=== PATIENT | female | born 1940 | race Caucasian/White ===

== ENCOUNTER → 2020-12-07 12:19 | Outpatient (BNVA) | payer MEDICARE, OTHER, SELFPAY | PROVIDERS: Family Provider Family Medicine; Referring Provider Internal Medicine; Visit Provider Specialist | DX: G20 Parkinson's disease (principal) | CPT/HCPCS: 99204; 99205 ==

== ENCOUNTER → 2021-01-05 13:40 | Outpatient (BNVA) | payer MEDICARE, OTHER, SELFPAY | PROVIDERS: Family Provider Family Medicine; Visit Provider Specialist | DX: G20 Parkinson's disease (principal) | CPT/HCPCS: 99214 ==

== ENCOUNTER 2021-08-26 09:08 | Outpatient (CLI) | payer MEDICARE, OTHER, SELFPAY ==
--- NOTE | 2021-08-26 09:30 | MR_ITS ---
WS: [id number] MRI BRAIN WITHOUT CONTRAST HISTORY: G20 - Parkinson's disease COMPARISON: None available. TECHNIQUE: Diffusion imaging, multiplanar T1, T2 and FLAIR imaging obtained. No evidence for acute infarct or hemorrhage. Larose-white matter differentiation is normal. Mild atrophy and mild small vessel ischemic disease. The amount of ischemic disease is appropriate fo r the patient's age. Although there is a normal width of the pars compacta. Mild depigmentation withi n the substantia nigra which can be seen with Parkinson's disease. Very mild ventriculomegaly as expected for the patient's age and amount of atrophy. No inferior displacement of cerebellar tonsils. The sella turcica and pituitary gland are unremarkabl e. Dural venous sinuses and [place] demonstrate no abnormality on this unenhanced studies. Paranasal sinuses: There is extensive abnormal signal throughout the sinuses. Most significant abnorm al signal in the ethmoid, maxillary and sphenoid sinuses. Consistent with advanced mucosal epithelial thickening. There is mild expansion of the posterior RIGHT ethmoid sinus. Mastoid air cells: Normal. Calvarium and scalp: Intact. MR/MR head wo con* [id number] IMPRESSION: 1. Mild atrophy and mild small vessel ischemic disease. 2. Very slight depigmentation of the substantia nigra can be seen with Alexander on's disease. Normal width of the pars compacta. 3. Extensive sinus disease with heterogeneous signal throughout. Mild expansio n of the RIGHT ethmoid cavity. Due to the mild expansion consider a mucocele as a possible etiology. Chronic sinus disease and allergic fungal sinusitis shoul d be considered.
== END 2021-08-26 09:09 | disposition home or self-care (01) ==
LOC: RAD 09:09
PROVIDERS: Visit Provider Specialist
DX: G20 Parkinson's disease (principal)
CPT/HCPCS: 70551

== ENCOUNTER 2021-10-26 09:38 | Outpatient (CLI) | payer MEDICARE, OTHER, SELFPAY ==
--- NOTE | 2021-10-26 09:44 | CT_ITS ---
WS: [id number] CT FACIAL BONES TECHNIQUE: Noncontrast facial bones with coronal and sagittal reformatted images. CLINICAL INFORMATION: CHRONIC SINUSITIS/DYSPHONIA COMPARISON: None. DLP: 578.[address] scans at [facility] use at least one of these dose optimization techniques: automated e xposure control; mA and/or kV adjustment per patient size (includes targeted exams where dose is matc hed to clinical indication); or iterative reconstruction. FINDINGS:Expansile lesion involving the RIGHT posterior ethmoid air cell extending into the RIGHT max illary infundibulum with peripheral margin of expanded bone. Involvement of the periorbital posterior ethmoid air cells with thinning of the lamina papyracea. This measures approximately 2.9 x 1.8 x 2.5 cm most compatible with mucocele. Mastoid air cells well aerated. Normal posterior nasopharynx. Normal parapharyngeal fat. Intracranial vascular calcification. Evidence of chronic sinusitis with chronic bony osteitis involving the LEFT maxillary sinus and sphenoid sinuses. Chronic appearing associated secretions involving the sphenoid sinuses and LEFT maxillary sinus with inspissated secretions. Opacification of the sphenoid ostia RIG HT greater than LEFT. Frontal sinuses are well aerated. Bilateral brynn bullosa. Opacification of the ostiomeatal units bilaterally RIGHT greater than LEFT. CT/CT facial bones wo con* [id number] IMPRESSION: 1. Expansile lesion involving the RIGHT posterior ethmoid air cell with periph eral rim of expanded bone extending into the maxillary infundibulum compatible with mucocele described above. 2. Inspissated secretions in the maxillary sinuses bilaterally and sphenoid si nuses. 3. Evidence of chronic osteitis involving the LEFT maxillary sinus and sphenoi d sinuses compatible with chronic sinusitis. 4. Mastoid air cells well aerated 5. Normal posterior nasopharynx. 6. Minimal nasal septal deviation with a leftward directed spur.
== END 2021-10-26 09:39 | disposition home or self-care (01) ==
LOC: RAD 09:39
PROVIDERS: PCP Internal Medicine; Visit Provider Specialist
DX: J32.8 Other chronic sinusitis (principal); R49.0 Dysphonia
CPT/HCPCS: 70486

== ENCOUNTER → 2021-11-09 10:34 | Outpatient (BNVA) | payer MEDICARE, OTHER, SELFPAY | PROVIDERS: PCP Internal Medicine; Visit Provider Specialist | DX: G20 Parkinson's disease (principal); R26.89 Other abnormalities of gait and mobility; R93.0 Abnormal findings on diagnostic imaging of skull and head, not elsewhere classified; H55.89 Other irregular eye movements; R48.2 Apraxia | CPT/HCPCS: 99215 ==

== ENCOUNTER 2021-12-07 11:48 | Outpatient (CLI) | payer MEDICARE, OTHER, SELFPAY ==
--- NOTE | 2021-12-07 11:45 | MR_ITS ---
WS: [id number] MRA ANGIOGRAPHY [place] OF [place] HISTORY: G20 - Parkinson's disease COMPARISON: None available. TECHNIQUE: 3-D MR angiography is performed of the [place]. All images are reviewed including source images. Dominant distal LEFT vertebral artery. Small caliber distal RIGHT vertebral artery. Basilar artery is normal caliber. Posterior cerebral arteries are normal caliber bilaterally. Mild stenosis involving the LEFT ICA of just less than 50%. This narrowing is along the proximal eldon ous segment. RIGHT ICA through the skull base is normal caliber. Normal caliber through the cavernous sinuses. Middle and anterior cerebral arteries are patent. No paucity of vessel or aneurysm. MR/MR angio head wo con [id number] IMPRESSION: 1. Very mild narrowing proximal LEFT carotid artery through the petrous segmen t. 2. Otherwise no significant narrowing or atherosclerosis. No aneurysms. 3. Dominant LEFT vertebral artery.
== END 2021-12-07 11:49 | disposition home or self-care (01) ==
LOC: RAD 11:49
PROVIDERS: PCP Internal Medicine; Visit Provider Specialist
DX: G20 Parkinson's disease (principal); I65.22 Occlusion and stenosis of left carotid artery
CPT/HCPCS: 70544

== ENCOUNTER → 2022-01-03 10:48 | Outpatient (BNVA) | payer MEDICARE, OTHER, SELFPAY | PROVIDERS: PCP Internal Medicine; Visit Provider Podiatrist Foot & Ankle Surgery | DX: M25.472 Effusion, left ankle (principal); M25.471 Effusion, right ankle; E11.9 Type 2 diabetes mellitus without complications; M19.071 Primary osteoarthritis, right ankle and foot; M19.072 Primary osteoarthritis, left ankle and foot | CPT/HCPCS: 99204 ==

== ENCOUNTER 2022-02-14 08:47 | Outpatient (CLI) | payer MEDICARE, OTHER, SELFPAY ==
--- NOTE | 2022-02-14 08:58 | CT_ITS ---
WS: [id number] CT SINUSES TECHNIQUE: Noncontrast CT of the paranasal sinuses with coronal and sagittal reformatted images. CLINICAL INFORMATION: OTHER CHRONIC SINUSITIS/DISORDERS OF NOSE NASAL SINUSES COMPARISON: None. DLP: 349.[address] scans at [facility] use at least one of these dose optimization techniques: automated e xposure control; mA and/or kV adjustment per patient size (includes targeted exams where dose is matc hed to clinical indication); or iterative reconstruction. FINDINGS: Again seen is the expansile lesion involving the RIGHT posterior ethmoid air cell extending into the RIGHT maxillary infundibulum with peripheral margin of expanded bone. This is unchanged from previous . Involvement of the periorbital posterior ethmoid air cells with thinning of the lamina papyracea is stable. Today this again measures approximately 2.9 x 1.8 x 2.5 cm most compatible with mucocele. Inspissated secretions involving the sphenoid sinuses and LEFT maxillary sinus unchanged from previou s. Opacification of the sphenoid ostia RIGHT greater than LEFT. Frontal sinuses are well aerated. Domingo ateral brynn bullosa. Mastoid air cells well aerated. Normal posterior nasopharynx. Normal parapharyngeal fat. Intracranial vascular calcification. Evidence of chronic sinusitis with chronic bony osteitis involving the LEFT maxillary sinus and sphenoid sinuses. CT/CT sinus wo con* [id number] IMPRESSION: Overall no significant changes compared to previous. 1. Stable expansile lesion involving the RIGHT posterior ethmoid air cell with peripheral rim of expanded bone extending into the maxillary infundibulum ludwin tible with mucocele described above. 2. Stable inspissated secretions in the maxillary sinuses bilaterally and sphen oid sinuses. 3. Chronic osteitis involving the LEFT maxillary sinus and sphenoid sinuses com patible with chronic sinusitis. 4. Minimal nasal septal deviation with a leftward directed spur.
== END 2022-02-14 08:48 | disposition home or self-care (01) ==
PROVIDERS: PCP Internal Medicine; Visit Provider Specialist
DX: J32.8 Other chronic sinusitis (principal); J34.89 Other specified disorders of nose and nasal sinuses; R09.81 Nasal congestion; J34.2 Deviated nasal septum; M86.68 Other chronic osteomyelitis, other site
CPT/HCPCS: 70486

== ENCOUNTER → 2022-03-01 12:28 | Outpatient (BNVA) | payer MEDICARE, OTHER, SELFPAY | PROVIDERS: PCP Internal Medicine; Visit Provider Specialist | DX: G20 Parkinson's disease (principal) | CPT/HCPCS: G0463 ==

== ENCOUNTER → 2022-04-04 10:35 | Outpatient (BNVA) | payer MEDICARE, OTHER, SELFPAY | PROVIDERS: PCP Internal Medicine; Visit Provider Podiatrist Foot & Ankle Surgery | DX: E11.9 Type 2 diabetes mellitus without complications (principal); M25.472 Effusion, left ankle; M25.471 Effusion, right ankle; M19.079 Primary osteoarthritis, unspecified ankle and foot | CPT/HCPCS: 99213 ==

== ENCOUNTER 2022-05-05 12:50 | Outpatient (CLI) | payer MEDICARE, OTHER, SELFPAY ==
--- NOTE | 2022-05-05 13:00 | MR_ITS ---
WS: [id number] MRI BRAIN WITHOUT CONTRAST HISTORY: G20 - Parkinson's disease COMPARISON: 08/26/2021, TECHNIQUE: Diffusion imaging, multiplanar T1, T2 and FLAIR imaging obtained. Diffusion-weighted imaging is normal. No hemorrhage. Mild small vessel ischemic changes confluently s urrounding the lateral ventricles. Very similar in appearance to the prior study. No significant prog ression and no interval infarct. No remote or acute infarcts are volume loss. Ventricles and extra-axial spaces are mildly prominent on the basis of atrophy. Substantia nigra is m ore difficult to visualize today due to motion artifact. There is been no obvious interval change. No inferior displacement of cerebellar tonsils. The sella turcica and pituitary gland are unremarkabl e. Dural venous sinuses and [place] of [place] demonstrate no abnormality on this unenhanced studies. Paranasal sinuses: Again noted is abnormal soft tissue centered in the posterior RIGHT ethmoid air ce lls with bony expansion into the maxillary sinus. Thought to be related to a mucocele. This has been previously described and imaged by sinus CT. Extension of mucoperiosteal thickening into the posterio r ethmoid air cells and the sphenoid sinuses. Additional mucoperiosteal thickening in the LEFT maxill marifer sinus. Mastoid air cells: Normal. Calvarium and scalp: Intact. MR/MR head wo con* [id number] IMPRESSION: 1. No acute infarct, hemorrhage or edema. 2. Mild atrophy and small vessel ischemic disease similar to the prior study. The substantia nigra related to Parkinson's disease is poorly visualized on terry bird's study due to motion. No interval obvious change. 3. Again noted is expansion of the RIGHT posterior ethmoid air cells consisten t with the previously described mucocele. Please refer to sinus CT report of 02/14/2022.
== END 2022-05-05 12:51 | disposition home or self-care (01) ==
LOC: RAD 12:55
PROVIDERS: PCP Internal Medicine; Visit Provider Specialist
DX: G20 Parkinson's disease (principal); G31.9 Degenerative disease of nervous system, unspecified; I67.82 Cerebral ischemia
CPT/HCPCS: 70551

== ENCOUNTER → 2022-06-02 14:32 | Outpatient (BNVA) | payer MEDICARE, OTHER, SELFPAY | PROVIDERS: PCP Internal Medicine; Visit Provider Specialist | DX: G23.1 Progressive supranuclear ophthalmoplegia [Steele-Richardson-Olszewski]; G20 Parkinson's disease | CPT/HCPCS: 99214 ==

== ENCOUNTER 2022-06-12 10:38 | Inpatient (IN) | payer MEDICARE, OTHER, SELFPAY ==
[2022-06-12] VITALS (14 sets, daily range): BP systolic 113–156; BP diastolic 51–78; PULSE 74–96; RESP 17–20; TEMP 36.9–37.1; O2SAT 90–95
--- NOTE | 2022-06-12 10:56 | XRR_ITS ---
PROCEDURE INFORMATION: Exam: XR Chest Exam date and time: 06/12/2022 11:03 AM Age: 81 years old Clinical indication: Cough and hyperventilation; Additional info: Hypoxia, cough, TECHNIQUE: Imaging protocol: Radiologic exam of the chest. Views: 1 view. COMPARISON: No relevant prior studies available. FINDINGS: Lungs: There is no consolidation. There are scattered nodules in the lower left lung and a single nodule in the lower right lung. Pleural spaces: There is no pleural effusion or pneumothorax. Heart/Mediastinum: The hua are prominent bilaterally. Bones/joints: Bones are unremarkable. XR/XR chest 1V portable [id number] IMPRESSION: 1. Prominent bilateral hua. Possible mediastinal lymphadenopathy. Recommend nonemergent chest CT without and with IV contrast. 2. Bilateral lower lung nodules. Nonspecific. Possible calcified granulomas or metastases. Recommend nonemergent chest CT without and with IV contrast.
--- NOTE | 2022-06-12 11:01 | ED_ITS ---
HPI - SOB/Dyspnea General: Chief Complaint: Shortness of Breath/Dyspnea Stated Complaint: LOW O2 SATS Time Seen by Provider: 06/12/22 10:46 History of Present Illness: HPI Narrative: Patient presents to the ER by EMS with complaints of shortness of breath. Ellen araya started having low oxygen saturation and a dry cough for the last week. Has been taking albuterol every 4 hours since . Patient's usually not on oxygen but is now requiring 4 L per nasal cannula. Patient does have a history of an old stroke with some right-sided deficits. MD elicited complaint: shortness of breath Onset (ago): week(s) (1 week ago) Timing: constant and progressively worsening Severity: moderate Exacerbating factors: exertion Relieving factors: nothing Associated symptoms: Reports cough; Deny abdominal pain, chest pain, fever(s), nausea, palpitations or vomiting Treatment prior to arrival: bronchodilator Review of Systems General: Reports: 10 or more systems reviewed and unremarkable except in HPI and below Const: Denies: fever(s), chills or body aches Eyes: Denies: change in vision or photophobia ENMT: Denies: throat pain or odynophagia Card: Denies: chest pain, palpitations or irregular heart rhythm Resp: Reports: dyspnea GI: Denies: abdominal pain, nausea, vomiting or diarrhea PFSH ED PFSH: Social History Smoking and tobacco status: never smoked Alcohol intake: never Substance/Drug Use: never Physical Exam Const: COMMON NORMALS: no acute distress, average body habitus, healthy appearing, alert and well nourished HENMT: COMMON NORMALS: normocephalic, atraumatic, hearing grossly normal bilaterally, external ears normal, Normal external nose present and moist oral mucous membranes HEAD & SCALP: normocephalic and atraumatic NOSE: Normal external nose present EXTERNAL EAR: Yes external ears normal Eye: COMMON NORMALS: Equal, round and reactive pupils present, EOMs intact bilaterally, conjunctivae normal and no scleral icterus CONJUNCTIVA: Yes conjunctivae normal PUPIL: Yes Equal, round and reactive pupils present Neck/C-Spine: COMMON NORMALS: full ROM, no lymphadenopathy, supple, no meningeal signs, no JVD and Thyroid normal THYROID: Thyroid normal Lymph: LYMPHATIC: no lymphadenopathy noted Chest: COMMONS NORMALS: normal inspection of the chest and normal palpation of entire chest wall Resp: EFFORT & INSPECTION: Yes symmetric chest movement AUSCULTATION: rhonchi and wheezes Cardio: COMMON NORMALS: no JVD, regular rate, regular rhythm, S1 normal heart sound present and S2 normal heart sound present RATE: regular rate RHYTHM: regular rhythm HEART SOUNDS: S1 normal heart sound present and S2 normal heart sound present GI: COMMON NORMALS: Normal to inspection, nondistended, normoactive bowel sounds present, Soft to palpation, non-tender, No hepatosplenomegaly present and no masses PALPATION: Yes Soft to palpation and Yes No hepatosplenomegaly present : COMMON NORMALS: Yes no CVA tenderness BLADDER/KIDNEY EXAM: Yes no CVA tenderness Back/Pelvis: COMMON NORMALS: no CVA tenderness Extremity: COMMON NORMALS: normal to inspection Neuro: SENSORIUM/ORIENTATION: Yes alert MENINGEAL SIGNS: Yes no meningeal signs Course Vital Signs: Vital signs: Vital Signs Temperature 98.8 F 06/12/22 10:40 Pulse Rate 83 06/12/22 11:44 Respiratory Rate 20 H 06/12/22 10:40 Blood Pressure 132/75 06/12/22 11:19 Pulse Oximetry 95 06/12/22 11:44 Oxygen Delivery Me thod Nasal Cannula 06/12/22 11:44 Oxygen Flow Rate 4 06/12/22 10:40 MDM - SOB/Dyspnea Medical Decision Making Patient presents to the ER by EMS with complaints of hypoxia for the last 24 hours. Patient had needed to be put on 4 L of oxygen per nasal cannula to keep her saturations above 95%. Lab work was obtained that showed patient has a human metapneumovirus positive no swab, chest x-ray was negative for infiltrate. Dr. Barnett was consulted we will be getting a D-dimer as well as a CT of the chest without contrast and giving the patient 10 mg Decadron IV. Patient will be admitted to [facility] [place] for further work-up. Differential Diagnosis Likely acute exacerbation of chronic obstructive airways disease, congestive heart failure and community acquired pneumonia; Unlikely asthma with exace rbation or pulmonary embolism Medical Records I reviewed the patient's medical records. Lab Data I reviewed the patient's lab results. 06/12/22 10:40 06/12/22 10:40 Labs/Radiology: Radiology Impressions Chest X-Ray 06/12/22 10:56 IMPRESSION: 1. Prominent bilateral hua. Possible mediastinal lymphadenopathy. Recommend nonemergent chest CT without and with IV contrast. 2. Bilateral lower lung nodules. Nonspecific. Possible calcified granulomas or metastases. Recommend nonemergent chest CT without and with IV contrast. Laboratory Results WBC 5.1 10^3/uL (4.0-10.0) 06/12/22 10:40 RBC 4.38 10^6/uL (4.1-5.3) 06/12/22 10:40 Hgb 11.7 g/dL (11.5-15.3) 06/12/22 10:40 Hct 39.2 % (37.0-47.0) 06/12/22 10:40 MCV 89.5 fl (81-99) 06/12/22 10:40 MCH 26.7 pg (28.0-34.0) L 06/12/22 10:40 MCHC 29.8 g/dL (30.0-36.0) L 06/12/22 10:40 RDW 13.5 % (12.1-15.1) 06/12/22 10:40 Plt Count 169 10^3/cmm (130-400) 06/12/22 10:40 MPV 11.0 fL (7.4-10.4) H 06/12/22 10:40 Neut % (Auto) 49.7 % 06/12/22 10:40 Lymph % (Auto) 28.3 % 06/12/22 10:40 [place] % (Auto) 14.4 % 06/12/22 10:40 Eos % (Auto) 5.8 % 06/12/22 10:40 Baso % (Auto) 1.2 % 06/12/22 10:40 Neut # (Auto) 2.55 10^3/uL (1.8-7.7) 06/12/22 10:40 Lymph # (Auto) 1.5 10^3/uL (0.8-4.8) 06/12/22 10:40 [place] # (Auto) 0.7 10^3/uL (0.2-0.9) 06/12/22 10:40 Eos # (Auto) 0.3 10^3/uL (0.0-0.8) 06/12/22 10:40 Baso # (Auto) 0.1 10^3/uL (0.0-0.1) 06/12/22 10:40 Nucleated RBC % (auto) 0 % 06/12/22 10:40 Nucleated RBCs # 0.0 /100WBC 06/12/22 10:40 Sodium 136 mmol/L (136-145) 06/12/22 10:40 Potassium 4.7 mmol/L (3.5-5.1) 06/12/22 10:40 Chloride 100 mmol/L (98-107) 06/12/22 10:40 Carbon Dioxide 27 mmol/L (22-29) 06/12/22 10:40 Anion Gap 13.7 (5-19) 06/12/22 10:40 BUN 19 mg/dL (8-23) 06/12/22 10:40 Creatinine 1.3 mg/dL (0.5-0.9) H 06/12/22 10:40 GFR Calculation Not Reportable 06/12/22 10:40 Glucose 264 mg/dL (65-115) H 06/12/22 10:40 Calculated Osmolality 293 mOsm/kg (285-295) 06/12/22 10:40 Calcium 9.2 mg/dL (8.5-10.5) 06/12/22 10:40 Total Bilirubin 0.2 mg/dL (0.15-1.2) 06/12/22 10:40 AST 14 U/L (0-32) 06/12/22 10:40 ALT < 5 U/L (0-33) 06/12/22 10:40 Alkaline Phosphatase 86 U/L (35-105) 06/12/22 10:40 Total Protein 6.9 g/dL (6.6-8.7) 06/12/22 10:40 Albumin 3.3 g/dL (3.5-5.2) L 06/12/22 10:40 Globulin 3.6 g/dL (1.3-4.6) 06/12/22 10:40 Nasal Influ A H1 2008 PCR Not detected (NOT DETECT) 06/12/22 11:25 Adenovirus (PCR) Not detected (NOT DETECT) 06/12/22 11:25 C. pneumoniae DNA (PCR) Not detected (NOT DETECT) 06/12/22 11:25 Coronavirus 229E (PCR) Not detected (NOT DETECT) 06/12/22 11:25 Human Metapneumovir PCR Detected (NOT DETECT) A 06/12/22 11:25 Influenza A (H1) PCR Not detected (NOT DETECT) 06/12/22 11:25 Influenza A (H3) PCR Not detected (NOT DETECT) 06/12/22 11:25 Influenza Type A (PCR) Not detected (NOT DETECT) 06/12/22 11:25 Influenza Type B (PCR) Not detected (NOT DETECT) 06/12/22 11:25 M. pneumoniae (PCR) Not detected (NOT DETECT) 06/12/22 11:25 Parainfluenza 1 (PCR) Not detected (NOT DETECT) 06/12/22 11:25 Parainfluenza 2 (PCR) Not detected (NOT DETECT) 06/12/22 11:25 Parainfluenza 3 (PCR) Not detected (NOT DETECT) 06/12/22 11:25 Parainfluenza 4 (PCR) Not detected (NOT DETECT) 06/12/22 11:25 RSV Type A (PCR) Not detected (NOT DETECT) 06/12/22 11:25 RSV Type B (PCR) Not detected (NOT DETECT) 06/12/22 11:25 Entero/Rhino (PCR) Not detected (NOT DETECT) 06/12/22 11:25 SARS-CoV-2 (PCR) Not detected (NOT DETECT) 06/12/22 11:25 Discharge Plan Discharge Patient Disposition: Admitted As Inpatient Clinical Impression: Infection due to human metapneumovirus (hMPV), Hypoxia Condition: Stable Prescriptions: No Action carbidopa-levodopa 25-100 mg tablet extended release See Rx Instructions PO BID Qty: 90 2RF Rx Instructions: 1/2 tab in the AM and at noon orally twice a day; glucosamine-chondroitin 500-400 mg tablet 1 tab PO DAILY Systane Balance 0.6 % drops 1 drp ophthalmic (eye) DAILY PRN calcium carbonate [Tums] 200 mg calcium (500 mg) tablet,chewable 200 mg PO BID guaifenesin [Mucinex] 600 mg tablet extended release 12hr 600 mg PO BID acetaminophen [Tylenol] 325 mg capsule 325 mg PO QID PRN Culturelle 10 billion cell capsule 1 cap PO DAILY fluticasone propionate [Flonase Allergy Relief] 50 mcg/actuation spray,suspension 1 spray intranasal DAILY Rx Instructions: administer into each nostril Prolia 60 mg/mL syringe SUBCUT cetirizine 5 mg tablet 5 mg PO DAILY PRN Referrals: Wesly Santiago DO [Primary Care Provider] - Coding Level of Care Code ED [facility] for Marilia Booker
[2022-06-12 11:08] LABS: Basophils # 0.1 10^3/uL (0.0-0.1); Basophils % 1.2 %; Eosinophils # 0.3 10^3/uL (0.0-0.8); Eosinophils % 5.8 %; Hematocrit 39.2 % (37.0-47.0); Hemoglobin 11.7 g/dL (11.5-15.3); Lymphocytes # 1.5 10^3/uL (0.8-4.8); Lymphocytes % 28.3 %; Mean Corpuscular HGB Conc 29.8 g/dL (30.0-36.0); Mean Corpuscular Hemoglobin 26.7 pg (28.0-34.0); Mean Corpuscular Volume 89.5 fl (81-99); Monocytes # 0.7 10^3/uL (0.2-0.9); Monocytes % 14.4 %; Neutrophils # 2.55 10^3/uL (1.8-7.7); Neutrophils % 49.7 %; Nucleated Red Blood Cells % 0 %; Platelet Count 169 10^3/cmm (130-400); Red Blood Count 4.38 10^6/uL (4.1-5.3); Red Cell Distribution Width 13.5 % (12.1-15.1); White Blood Count 5.1 10^3/uL (4.0-10.0)
[2022-06-12 11:22] LABS: Alanine Aminotransferase < 5 U/L (0-33); Albumin Level 3.3 g/dL (3.5-5.2); Alkaline Phosphatase 86 U/L (35-105); Aspartate Amino Transferase 14 U/L (0-32); Blood Urea Nitrogen 19 mg/dL (8-23); Calcium 9.2 mg/dL (8.5-10.5); Carbon Dioxide 27 mmol/L (22-29); Chloride 100 mmol/L (98-107); Globulin 3.6 g/dL (1.3-4.6); Glucose 264 mg/dL (65-115); Osmolality Calculated 293 mOsm/kg (285-295); Sodium 136 mmol/L (136-145); Total Bilirubin 0.2 mg/dL (0.15-1.2); Total Protein 6.9 g/dL (6.6-8.7)
[2022-06-12 11:59] LABS: Anion Gap 13.7 (5-19); Potassium 4.7 mmol/L (3.5-5.1)
[2022-06-12 13:35] LABS: Adenovirus Not Detected (NOT DETECT); Chlamydia Pneumoniae Not Detected (NOT DETECT); Coronavirus 229E,HKU1,NL63,OC4 Not Detected (NOT DETECT); Human Metapneumovirus Detected (NOT DETECT); Human Rhinovirus/Enterovirus Not Detected (NOT DETECT); Influenza A Not Detected (NOT DETECT); Influenza A H1 Not Detected (NOT DETECT); Influenza A H1-2009 Not Detected (NOT DETECT); Influenza A H3 Not Detected (NOT DETECT); Influenza B Not Detected (NOT DETECT); Mycoplasma Pneumoniae Not Detected (NOT DETECT); Parainfluenza Virus Type 1 Not Detected (NOT DETECT); Parainfluenza Virus Type 2 Not Detected (NOT DETECT); Parainfluenza Virus Type 3 Not Detected (NOT DETECT); Parainfluenza Virus Type 4 Not Detected (NOT DETECT); Respiratory Syncytial Virus A Not Detected (NOT DETECT); Respiratory Syncytial Virus B Not Detected (NOT DETECT); SARS-COV-2 Not Detected (NOT DETECT)
--- NOTE | 2022-06-12 15:04 | CTR_ITS ---
PROCEDURE INFORMATION: Exam: CT Chest Without Contrast; Diagnostic Exam date and time: 06/12/2022 3:15 PM Age: 81 years old Clinical indication: Hyperventilation and shortness of breath; Additional info: Hypoxia, dyspnea TECHNIQUE: Imaging protocol: Diagnostic computed tomography of the chest without contrast. Radiation optimization: All CT scans at this facility use at least one of these dose optimization techniques: automated exposure control; mA and/or kV adjustment per patient size (includes targeted exams where dose is matched to clinical indication); or iterative reconstruction. REPORTING DATA: Count of CT and Cardiac NM exams in prior 12 months: This patient has received 2 known CTs and 0 known cardiac nuclear medicine studies in the 12 months prior to the current study. COMPARISON: CR (CHEST, ) 06/12/2022 11:03 AM RADIATION DOSE METRICS: Total DLP (mGy-cm): 365.12 FINDINGS: Lungs: 6 mm benign calcified granuloma is seen anterior mid to lower right lung. Subtle ill-defined hazy ground-glass opacity within the mid to lower lungs on the lung windows. Mild basilar atelectasis with possible minimal right basilar infiltrate. No consolidated infiltrate. Pleural spaces: No pneumothorax or pleural effusion is seen. Heart: No significant cardiomegaly or pericardial effusion. Mild amount of mitral annular calcification. Lymph nodes: Nonspecific mediastinal lymph nodes, the largest measuring 1.3 cm in the retrocaval pretracheal mediastinum. No significant lymph node enlargement, otherwise. Vasculature: Arteriosclerosis of the thoracic aorta. Bones/joints: Slight thoracic dextroscoliosis. Spondylotic change thoracic spine. Soft tissues: Unremarkable. CT/CT chest con [id number] IMPRESSION: 1. Benign calcified granuloma anterior mid to lower right lung. 2. Mild basilar atelectasis with possible minimal right basilar infiltrate. Subtle ill-defined hazy ground-glass opacity mid and lower lungs, as well. Consider minimal pneumonia. 3. Limited evaluation of mediastinal and hilar region without IV contrast, with nonspecific lymph nodes within the mediastinum and without significant lymphadenopathy.
[2022-06-12 15:41] LABS: D Dimer 0.81 ug/mIFEU (0-0.59)
[2022-06-12] MEDS: ipratropium-albuterol 3 mL Neb INHALATION ×2 (15:44→19:53)
[2022-06-12] MEDS: dexamethasone 10 mg/mL INJ IVP (16:00)
--- NOTE | 2022-06-12 17:10 | P.HP_ITS ---
Providers/Chief Complaint Admitting Physician: Marcos Mcgowan MD Primary Care Provider: Wesly Santiago DO Chief Complaint: LOW O2 SATS History of Present Illness Barb Joiner is a 81 year old female, intermediate resident with past medical history of supranuclear progressive Palsy, type 2 diabetes mellitus, COPD who was brought in today from the intermediate because of difficulty in breathing and cough which has been ongoing and worsening since Monday. Today is Monday. Patient herself speaks very softly because of her baseline Parkinson's. She is seen in the ER with her son at bedside. Work-up in the ER showed patient to be positive for metapneumovirus. She is requiring up to 4 L of oxygen supplementation to maintain saturation over 88% hence hospital service was consulted for admission. At baseline patient is not on oxygen. Blood work in the ER showed a white count of 5.1, hemoglobin of 11.7, sodium 136, potassium of 4.7, creatinine of 1.3 (we do not have a baseline creatinine), AST/ALT of 14/less than 5, respiratory viral panel positive for human metapneumovirus Review of Systems General: Reports: ROS unobtainable due to medical condition Medications/Allergies Home Medications Medication Instructions Recorded Confirmed Last Taken Type calcium carbonate 200 mg calcium 200 mg PO Q6H PRN Stomach Upset 11/09/21 06/12/22 Unknown History (500 mg) chewable tablet (Tums) denosumab 60 mg/mL subcutaneous 60 mg SUBCUT Q180D 11/09/21 06/12/22 Unknown History syringe (Prolia) fluticasone propionate 50 2 spray intranasal DAILY PRN 11/09/21 06/12/22 Unknown History mcg/actuation nasal allergies spray,suspension (Flonase Allergy Relief) guaifenesin 600 mg tablet, 600 mg PO BID PRN Congestion 11/09/21 06/12/22 Unknown History extended release 12 hr (Mucinex) cetirizine 5 mg tablet 2.5 mg PO DAILY 03/01/22 06/12/22 Unknown History carbidopa ER 25 mg-levodopa 100 mg See Rx Instructions PO BID #90 tabs 06/02/22 06/12/22 Unknown Rx tablet,extended release acetaminophen 500 mg tablet 500 mg PO BID 06/12/22 06/12/22 Unknown History albuterol sulfate 2.5 mg/3 mL 2.5 mg inhalation TID PRN 06/12/22 06/12/22 Unknown History (0.083 %) solution for nebulization Shortness Of Breath aspirin 81 mg chewable tablet 81 mg PO DAILY 06/12/22 06/12/22 Unknown History bisacodyl 10 mg rectal suppository 10 mg ND DAILY PRN Constipation 06/12/22 Unknown History (Dulcolax (bisacodyl)) diclofenac sodium 1 % topical gel 2 g topical BEDTIME 06/12/22 06/12/22 Unknown History (Voltaren Arthritis Pain) famotidine 20 mg tablet (Pepcid) 20 mg PO DAILY 06/12/22 06/12/22 Unknown History insulin degludec 100 unit/mL 10 unit SUBCUT BEDTIME 06/12/22 06/12/22 Unknown History subcutaneous solution (Tresiba U-100 Insulin) menthol 5 mg lozenges (Cough Drops) 5 mg mucous membrane Q4H 06/12/22 06/12/22 Unknown History promethazine-DM 6.25 mg-15 mg/5 mL 5 ml PO Q8H PRN Cough 06/12/22 06/12/22 Unknown History oral syrup propylene glycol 0.6 % eye drops 1 drp ophthalmic (eye) BID 06/12/22 06/12/22 Unknown History (Systane Balance) red yeast rice 600 mg capsule 600 mg PO DAILY 06/12/22 06/12/22 Unknown History vitamins A,C,S-dqwq-nddtzi 2,148 1 tab PO DAILY 06/12/22 06/12/22 Unknown History mcg-113 mg-45 mg-17.4 mg tablet (PreserVision AREDS) Allergies Allergy/AdvReac Type Severity Reaction Status Date / Time adhesive tape Allergy Mild Rash Verified 06/02/22 14:47 Sulfa (Sulfonamide Allergy Mild Rash Verified 06/02/22 14:47 Antibiotics) gabapentin AdvReac floats on Verified 06/02/22 14:47 the ceiling hydrocodone AdvReac Floats on Verified 06/02/22 14:47 the ceiling Penicillins AdvReac Makes her Verified 06/02/22 14:47 sleep PFSH Acute PFSH: Medical History (Updated 06/12/22 @ 17:13 by Marcos Mcgowan MD) COPD (chronic obstructive pulmonary disease) Progressive supranuclear palsy Type 2 diabetes mellitus Family History (Updated 06/12/22 @ 20:01 by Marcos Mcgowan MD) Other CAD (coronary artery disease) Social History (Updated 06/12/22 @ 17:14 by Marcos Mcgowan MD) Smoking and tobacco status: never smoked Alcohol intake: never Substance/Drug Use: never Household members: other Housing: [facility] Vitals/I&O/Wt Last Vital Signs Temp 98.8 F 06/12/22 10:40 Pulse 89 06/12/22 16:32 Resp 20 H 06/12/22 15:42 BP 113/63 06/12/22 16:32 Pulse Ox 93 06/12/22 16:32 O2 Del Method Nasal Cannula 06/12/22 16:32 O2 Flow Rate 4 06/12/22 16:32 Weight last 48 hrs Weight 86.183 kg Physical Exam Narrative: General: No acute distress, AO x3, chronically sick appearing, able to have conversation but not able to speak, chronic dysphonia HEENT: PERRLA, pupils bilaterally equal and reactive Chest: Bilateral bronchial breath sounds all over all lung renee with occasional rhonchi all over lung renee, coarse crackles present in right lower zone CVS: S1-S2 regular, no murmurs, no tachycardia, no gallops, no rubs Abdomen: Soft, nontender, no organomegaly, bowel sounds present Neuro: No focal deficits, no facial deformity, AO x3, moving all limbs Data 06/12/22 10:40 06/12/22 10:40 A&P Assessment and plan (1) Hypoxia: (2) Infection due to human metapneumovirus (hMPV): (3) Type 2 diabetes mellitus: (4) Progressive supranuclear palsy: (5) COPD (chronic obstructive pulmonary disease): Plan Hypoxia: Most likely secondary COPD exacerbation in setting of metapneumovirus. Cannot rule out aspiration pneumonia given patient's baseline Parkinson's. Patient is on thickened liquid diet at intermediate. Speech therapy and evaluation, modified barium swallow. Empirically start patient on meropenem. Patient is allergic to penicillin. Check sputum culture, MRSA swab, procalcitonin. DuoNebs every 6 hour, budesonide twice daily. Start patient on dexamethasone 4 mg every 12 hourly. Solu-Medrol not available in hospital. Oxygen supplementation keeping saturation over 88%. Type 2 diabetes mellitus: Check A1c. Insulin sliding scale low-dose protocol. Continue home dose of Lantus 10 units nightly. CODE STATUS: Patient's son will be the DPOA. Paperwork present in the chart. DNR/DNI. Both patient and son are agreeable with the paperwork. Regular diet with thickened liquids for now. Will change as per speech therapy. Famotidine for PUD prophylaxis Heparin 5000 every 12 hourly for DVT prophylaxis. Attestations Medical Necessity Statement*: Admission for more than 2 midnights for management of hypoxia in setting of metapneumovirus leading to COPD exacerbation while aspiration pneumonia was ruled out in a patient who is a chronic intermediate resident for supranuclear palsy Diagnoses Hypoxia R09.02 Infection due to human metapneumovirus (hMPV) B34.8 Type 2 diabetes mellitus E11.9 Progressive supranuclear palsy G23.1 COPD (chronic obstructive pulmonary disease) J44.9
[2022-06-12 17:46] LABS: Thyroid Stimulating Hormone 2.44 uIU/mL (0.27-4.20); Vitamin B12 625 pg/mL (232-1245)
[2022-06-12 17:56] LABS: Iron 33 ug/dL (37-145); Percent Saturation 12.9 % (20-50); Total Iron Binding Capacity 254 mcg/dl; Unsaturated Iron Binding 221 ug/dL (112-347)
[2022-06-12] MEDS: carbidopa-levodopa 25-100mg Tablet 0.5 EACH PO (18:44)
[2022-06-12] MEDS: famotidine 20 mg Tablet PO (18:44)
[2022-06-12] MEDS: heparin 5,000 unit/mL INJ 1 mL 5000 UNIT SUBCUT (18:45)
[2022-06-12] MEDS: meropenem 1,000 MG in sodium chloride 0.9% (plus) 50 ML 100 MG IV (18:45)
[2022-06-12] MEDS: budesonide 0.5 mg/2 mL Neb INHALATION (19:53)
[2022-06-12 20:32] LABS: Glucose Point of Care 349 mg/dL (70-110)
[2022-06-12] MEDS: insulin glargine 100 units/1 mL 10 UNIT SUBCUT (21:21)
[2022-06-12] MEDS: insulin lispro 100 unit/1 mL SUBCUT (22:00)
[2022-06-13] VITALS (14 sets, daily range): BP systolic 114–135; BP diastolic 67–74; PULSE 70–101; RESP 16–20; TEMP 36.4–36.9; O2SAT 87–96; BMI 34.7
[2022-06-13] MEDS: meropenem 1,000 MG in sodium chloride 0.9% (plus) 50 ML 100 MG IV ×3 (01:04→20:43)
[2022-06-13] MEDS: benzonatate 100 mg Capsule PO (01:05)
[2022-06-13] MEDS: ipratropium-albuterol 3 mL Neb INHALATION ×4 (01:08→21:10)
[2022-06-13 05:16] LABS: Basophils % 0.2 %; Hematocrit 37.5 % (37.0-47.0); Hemoglobin 11.1 g/dL (11.5-15.3); Lymphocytes # 0.6 10^3/uL (0.8-4.8); Lymphocytes % 13.2 %; Mean Corpuscular HGB Conc 29.6 g/dL (30.0-36.0); Mean Corpuscular Hemoglobin 26.5 pg (28.0-34.0); Mean Corpuscular Volume 89.5 fl (81-99); Mean Platelet Volume 10.7 fL (7.4-10.4); Monocytes # 0.1 10^3/uL (0.2-0.9); Neutrophils # 3.86 10^3/uL (1.8-7.7); Neutrophils % 83.7 %; Nucleated Red Blood Cells % 0 %; Platelet Count 170 10^3/cmm (130-400); Red Blood Count 4.19 10^6/uL (4.1-5.3); Red Cell Distribution Width 13.2 % (12.1-15.1); White Blood Count 4.6 10^3/uL (4.0-10.0)
[2022-06-13 05:26] LABS: Estmated Average Glucose 217; Hemoglobin A1C 9.2 % (4.0-6.0)
[2022-06-13 05:29] LABS: Chol HDL Ratio 4.95 mg/dL (0.0-4.40); Cholesterol 193 mg/dL (0-200); HDL Cholesterol 39 mg/dL (60-100); LDL Cholesterol Calculated 122 mg/dL (50-129); LDL HDL Ratio 3.13 RATIO (0.00-3.22); Triglycerides 162 mg/dL (0-150)
[2022-06-13 05:30] LABS: Alanine Aminotransferase < 5 U/L (0-33); Albumin Level 3.2 g/dL (3.5-5.2); Alkaline Phosphatase 83 U/L (35-105); Anion Gap 15.5 (5-19); Aspartate Amino Transferase 12 U/L (0-32); Blood Urea Nitrogen 23 mg/dL (8-23); Carbon Dioxide 25 mmol/L (22-29); Chloride 99 mmol/L (98-107); Globulin 3.4 g/dL (1.3-4.6); Glucose 295 mg/dL (65-115); Osmolality Calculated 295 mOsm/kg (285-295); Phosphorus 2.5 mg/dL (2.5-4.5); Potassium 4.5 mmol/L (3.5-5.1); Sodium 135 mmol/L (136-145); Total Bilirubin 0.2 mg/dL (0.15-1.2); Total Protein 6.6 g/dL (6.6-8.7)
[2022-06-13 05:33] LABS: Creatinine Clr Calc Pharmacy 37.4576
[2022-06-13 06:02] LABS: Folate Level 6.2 ng/mL (4.8-37.3)
[2022-06-13] MEDS: dexamethasone 4 mg/mL INJ IVP ×2 (06:03→17:51)
[2022-06-13] MEDS: heparin 5,000 unit/mL INJ 1 mL 5000 UNIT SUBCUT ×2 (06:04→17:51)
[2022-06-13 06:28] LABS: Glucose Point of Care 315 mg/dL (70-110)
[2022-06-13] MEDS: budesonide 0.5 mg/2 mL Neb INHALATION ×2 (08:12→21:10)
[2022-06-13] MEDS: carbidopa-levodopa 25-100mg Tablet 0.5 EACH PO ×2 (08:53→17:51)
[2022-06-13] MEDS: aspirin 81 mg Chew Tablet PO (08:53)
[2022-06-13] MEDS: famotidine 20 mg Tablet PO ×2 (08:53→17:51)
[2022-06-13] MEDS: insulin lispro 100 unit/1 mL SUBCUT ×4 (08:53→22:28)
--- NOTE | 2022-06-13 10:37 | PC.CHAP ---
Pastoral Care Encounter/Spiritual Assessment Type of Contact [] Declined warp yarn sorter visit [] Patient/Family/Request visit [] Outpatient visit [] Follow-up visit [] Physician referral [] Code/Alert [x] Routine visit [] Staff referral [] Actively dying [] Patient sleeping [] Family support [] [] Out of room [] Palliative care [] [] Receiving care in room [] Pre-surgical visit [] Trauma [] Long length of stay [] ICU visit [] Other: Relational/Emotional Strength [] Patient feels connected with others/family/visitors/staff [] Distress [] Loneliness/isolation [] Abandonment Spirituality of Patient [] Person of Tory [] Attends Confucianist of their Tory [] Believes in Prayer [] Reads Bible or Latter-Day materials [] There are Spiritual issues to be addressed Boat Detailer Interventions [x] Prayer [] Active listening [] Non-anxious presence [] Spiritual/emotional support [] Crisis/trauma care [] Spiritual counseling [] Bereavement support [] Provided bereavement packet [] Provided Bible/devotional materials [] Provided toy/stuffed animal, coloring book to patient or family member [] Provided Communion [] Anointing/[place] [] Salvation [] Completed spiritual assessment [] Other: Impact on Illness or Injury [] Angry [] Fearful [] Anxious [] Often cries [] Exhaustion [] Unable to work [] Unable to attend mandaeism [] Unable to walk/stand [] Unable to read [] Unable to drive [] Unable to eat/drink [] Unable to sleep [] Unable to be with family [] Patient intubated [] Other: Summary Time spent with patient
[2022-06-13 11:52] LABS: Glucose Point of Care 265 mg/dL (70-110)
--- NOTE | 2022-06-13 14:55 | P.PN_ITS ---
Subjective Subjective: No acute events overnight. Comfortable. on 3L oxymask as breathes through the mouth. Plan for MBS today. Vitals/I&O/Wt Last Vital Signs Temp 98.5 F 06/13/22 12:00 Pulse 91 06/13/22 13:50 Resp 18 06/13/22 13:40 BP 114/74 06/13/22 12:00 Pulse Ox 94 06/13/22 13:40 O2 Del Method Oxymask 06/13/22 13:40 O2 Flow Rate 3 06/13/22 13:40 06/12/22 06/13/22 06/13/22 22:59 06:59 14:59 Intake Total 50 / 50 50 / 100 170 / 170 Balance 50 / 50 50 / 100 170 / 170 Weight last 48 hrs Weight 86.183 kg Weight 86.183 kg Physical Exam Narrative: General: No acute distress, AO x3, chronically sick appearing, able to have conversation but not able to speak, chronic dysphonia HEENT: PERRLA, pupils bilaterally equal and reactive Chest: Bilateral bronchial breath sounds all over all lung renee with occasional rhonchi all over lung renee, coarse crackles present in right lower zone CVS: S1-S2 regular, no murmurs, no tachycardia, no gallops, no rubs Abdomen: Soft, nontender, no organomegaly, bowel sounds present Neuro: No focal deficits, no facial deformity, AO x3, moving all limbs Data 06/13/22 04:40 06/13/22 04:40 Micro: Microbiology 06/12/22 03:59 Bacterial Antigens - Final Urine Kidney 06/12/22 03:59 Legionella Urinary Antigen - Final Unknown Source A&P Assessment and plan (1) Hypoxia: (2) Infection due to human metapneumovirus (hMPV): (3) Type 2 diabetes mellitus: (4) Progressive supranuclear palsy: (5) COPD (chronic obstructive pulmonary disease): Plan Hypoxia: Most likely secondary COPD exacerbation in setting of metapneumovirus. Cannot rule out aspiration pneumonia given patient's baseline Parkinson's. Patient is on thickened liquid diet at retirement. Speech therapy and evaluation, modified barium swallow. Empirically start patient on meropenem. Patient is allergic to penicillin. Check sputum culture, MRSA swab, procalcitonin. DuoNebs every 6 hour, budesonide twice daily. Start patient on dexamethasone 4 mg every 12 hourly. Solu-Medrol not available in hospital. Oxygen supplementation keeping saturation over 88%. Type 2 diabetes mellitus: Check A1c. Insulin sliding scale low-dose protocol. Continue home dose of Lantus 10 units nightly. CODE STATUS: Patient's son will be the DPOA. Paperwork present in the chart. DNR/DNI. Both patient and son are agreeable with the paperwork. Regular diet with thickened liquids for now. Will change as per speech therapy. Famotidine for PUD prophylaxis Heparin 5000 every 12 hourly for DVT prophylaxis. Plan for the day: Continue relation treatment, steroids. Wean oxygen keeping saturation over 88%. Follow-up MBS study and change diet accordingly if needed. Attestations Medical Necessity Statement*: Hypoxia due to COPD exacerbation from metapneumovirus infection Diagnoses Hypoxia R09.02 Infection due to human metapneumovirus (hMPV) B34.8 Type 2 diabetes mellitus E11.9 Progressive supranuclear palsy G23.1 COPD (chronic obstructive pulmonary disease) J44.9
[2022-06-13 16:42] LABS: Glucose Point of Care 234 mg/dL (70-110)
--- NOTE | 2022-06-13 17:57 | FL_ITS ---
WS: [id number] MODIFIED BARIUM SWALLOW HISTORY: Oropharyngeal dysphagia FLUOROSCOPY TIME: 1min [id number] # of spot films: 257 Modified barium swallow was performed by the speech pathologist. Fluoroscopy was provided with the pa tient in a lateral projection. Multiple food consistencies were provided. No aspiration or laryngeal penetration. There was delay in clearing of the barium from the esophagus. Patient was able to swallow most food consistencies without difficulty. Patient requested the study be terminated early. FL/FL barium swallow modifd [id number] IMPRESSION: No aspiration or laryngeal penetration identified. Study terminated early at th e patient's request. Please see speech therapist report also for recommendations.
[2022-06-13 20:33] LABS: Glucose Point of Care 259 mg/dL (70-110)
[2022-06-13] MEDS: insulin glargine 100 units/1 mL 10 UNIT SUBCUT (20:43)
[2022-06-14] VITALS (10 sets, daily range): BP systolic 110–141; BP diastolic 67–77; PULSE 58–95; RESP 15–20; TEMP 36.4–36.9; O2SAT 92–98
[2022-06-14] MEDS: heparin 5,000 unit/mL INJ 1 mL 5000 UNIT SUBCUT ×2 (05:31→17:23)
[2022-06-14] MEDS: dexamethasone 4 mg/mL INJ IVP (06:08)
[2022-06-14 06:43] LABS: Glucose Point of Care 245 mg/dL (70-110)
[2022-06-14] MEDS: ipratropium-albuterol 3 mL Neb INHALATION ×3 (09:21→19:53)
[2022-06-14] MEDS: budesonide 0.5 mg/2 mL Neb INHALATION ×2 (09:21→19:53)
[2022-06-14] MEDS: insulin lispro 100 unit/1 mL SUBCUT ×4 (09:41→21:24)
[2022-06-14] MEDS: carbidopa-levodopa 25-100mg Tablet 0.5 EACH PO ×2 (09:42→17:22)
[2022-06-14] MEDS: famotidine 20 mg Tablet PO ×2 (09:42→17:23)
[2022-06-14] MEDS: aspirin 81 mg Chew Tablet PO (09:42)
[2022-06-14] MEDS: meropenem 1,000 MG in sodium chloride 0.9% (plus) 50 ML 100 MG IV (09:43)
--- NOTE | 2022-06-14 09:50 | P.PN_ITS ---
Subjective Subjective: Patient reports shortness of breath, cough, generalized weakness, and fatigue. Reports she was recently started on oxygen at facility but is unsure how much. CM reports 2L baseline. She denies fevers, chills, nausea or emesis. Reports she choked with drinking this morning but attributes that to drinking fluids too quickly. She did well with speech therapy yesterday. Vitals/I&O/Wt Last Vital Signs Temp 97.6 F 06/14/22 08:00 Pulse 68 06/14/22 09:24 Resp 16 06/14/22 08:00 BP 141/69 06/14/22 08:00 Pulse Ox 96 06/14/22 08:00 O2 Del Method Nasal Cannula 06/14/22 08:00 O2 Flow Rate 3 06/14/22 08:00 06/13/22 06/14/22 06/14/22 22:59 06:59 14:59 Intake Total 770 / 940 240 / 240 Balance 770 / 940 240 / 240 Weight last 48 hrs Weight 86.183 kg Weight 86.183 kg Physical Exam Narrative: General: Patient is awake. Laying in bed. Head: Normocephalic. Atraumatic. EOM intact. Neck: No JVD. Cardiovascular: RRR. No gallops. No murmurs. Lungs: Breath sounds are diminished in bilateral bases. Very faint end expiratory wheezing. On non-rebreather mask. Skin: No jaundice. No rashes. Abdomen: Normal bowel sounds, abdomen soft and nontender. Genito Urinary: Genital exam not performed since complaints not related. Rectal: Rectal exam not performed since no symptoms indicated blood loss. Extremities: No cyanosis or clubbing. Musculoskeletal: 5/5 strength, normal range of motion, no swollen or erythematous joints. Neurological: Moves all 4 extremities. No myoclonus. Data 06/13/22 04:40 06/13/22 04:40 Micro: Microbiology 06/12/22 04:00 MRSA Culture - Final Nose 06/12/22 03:59 Bacterial Antigens - Final Urine Kidney 06/12/22 03:59 Legionella Urinary Antigen - Final Unknown Source A&P Assessment and plan (1) Hypoxia: Acute on chronic hypoxic respiratory failure secondary to acute COPD exacerbation Continue supplemental oxygen for SPO2 goal of 88-92 percent Continue treating underlying COPD as below Speech therapy evaluated, appreciate recommendations, continue dysphagia lvl 4 d iet Tessalon as needed (2) COPD (chronic obstructive pulmonary disease): Discontinue dexamethasone Start oral steroids Continue DuoNebs Continue Pulmicort Procal 0.10 Discontinue meropenem (3) Type 2 diabetes mellitus: Uncontrolled T2DM w/ hyperglycemia A1c 9.2 Fasting AM glucose elevated Increase Lantus SSI Avoid hypoglycemia (4) Infection due to human metapneumovirus (hMPV): Supportive care (5) Debility: Supportive care Anticipate discharge back to facility when medically ready (6) Progressive supranuclear palsy: Supportive care Plan DVT ppx: Heparin Code Status: DNR/DNI Attestations Medical Necessity Statement*: Patient requires ongoing hospitalization for supplemental oxygen with titration, transitioning of IV steroids and oral, antibiotics, nebulizing therapies and supportive care. Coding Level of Care Code Acute Code for [facility] Diagnoses Hypoxia R09.02 COPD (chronic obstructive pulmonary disease) J44.9 Type 2 diabetes mellitus E11.9 Infection due to human metapneumovirus (hMPV) B34.8 Debility R53.81 Progressive supranuclear palsy G23.1
--- NOTE | 2022-06-14 10:17 | ECG_ITS ---
[facility] Test Date: 2022-06-14 Pat Name: Barb Joiner Department: Room: 271 Gender: Female Women'S Soccer Coach: : 1940 Requested By: Joshua Patton Order Number: [id number] Diop MD: Johnathon Tsai M.D. Measurements Intervals [place] Rate: 68 P: 23 [place]: 146 QRS: 10 QRSD: 100 T: 47 QT: 393 QTc: 420 Interpretive Statements SINUS RHYTHM MINIMAL VOLTAGE CRITERIA FOR LVH, CONSIDER NORMAL VARIANT [MEETS CRITERIA IN ONE OF: R(aVL), S(V1), R(V5), R(V5/V6)+S(V1)] No previous ECG available for comparison Electronically Signed On 06-14-2022 11:54:23 CDT by Johnathon Tsai M.D. [email or web address]
[2022-06-14 11:46] LABS: Glucose Point of Care 253 mg/dL (70-110)
[2022-06-14 16:47] LABS: Glucose Point of Care 430 mg/dL (70-110)
[2022-06-14 20:40] LABS: Glucose Point of Care 407 mg/dL (70-110)
[2022-06-14] MEDS: insulin glargine 100 units/1 mL 12 UNIT SUBCUT (21:24)
[2022-06-15 02:46] VITALS: PULSE 84; RESP 18; O2SAT 97
[2022-06-15] MEDS: ipratropium-albuterol 3 mL Neb INHALATION ×2 (02:46→07:58)
[2022-06-15 02:51] VITALS: PULSE 88; RESP 18; O2SAT 97
[2022-06-15] MEDS: heparin 5,000 unit/mL INJ 1 mL 5000 UNIT SUBCUT (06:01)
[2022-06-15 06:12] LABS: Glucose Point of Care 111 mg/dL (70-110)
[2022-06-15 07:00] VITALS: BP 135/81; PULSE 62; RESP 18; TEMP 36.6; O2SAT 98
[2022-06-15] MEDS: budesonide 0.5 mg/2 mL Neb INHALATION (07:58)
[2022-06-15 08:00] VITALS: PULSE 77; RESP 18; O2SAT 99
[2022-06-15] MEDS: predniSONE 20 mg Tablet 40 MG PO (09:35)
[2022-06-15] MEDS: aspirin 81 mg Chew Tablet PO (09:35)
[2022-06-15] MEDS: carbidopa-levodopa 25-100mg Tablet 0.5 EACH PO (09:35)
[2022-06-15] MEDS: famotidine 20 mg Tablet PO (09:35)
[2022-06-15 10:24] LABS: SARS Covid-2 Antigen negative (Negative)
--- NOTE | 2022-06-15 10:30 | PC.SOCIAL ---
Imm update Imm updated with patient at bedside. Copy of page 2 provided. Patient verbalized understanding. Copy in chart initialed, dated and timed.
--- NOTE | 2022-06-15 12:00 | P.DS_ITS ---
Discharge Providers Date of Admission: 06/12/22 15:07 Date of Discharge: June 15, 2022 Attending Provider at Admission: Marcos Mcgowan MD Attending Provider at Discharge: Joshua Barrios MD Primary Care Provider: Wesly Santiago DO Diagnoses at Discharge Discharge Diagnosis (1) Hypoxia: Status: Acute (2) COPD (chronic obstructive pulmonary disease): Status: Acute (3) Type 2 diabetes mellitus: Status: Acute (4) Infection due to human metapneumovirus (hMPV): Status: Acute (5) Debility: Status: Acute (6) Progressive supranuclear palsy: Status: Acute Reason for Visit Reason for Visit: LOW O2 SATS Hospital Course Hospital Course Barb Joiner is an 81-year-old female with a past medical history significant for supranuclear progressive Palsy, type 2 diabetes mellitus, and COPD who presented with shortness of breath, found to have acute hypoxia secondary to acute COPD exacerbation secondary to human metapneumovirus infection. Patient treated with IV steroids and IV antibiotics, transitioned to oral steroids. She received supportive respiratory care including supplemental oxygen support and nebulizing treatments. Symptoms improved and patient discharged back to [facility] in stable condition. Physical Exam Narrative: General: Patient is awake. Alert.? NAD.? Pleasant. Head:? Normocephalic. Atraumatic. EOM intact. Neck: No JVD. Cardiovascular: RRR. No gallops. No murmurs. Lungs: Breath sounds are diminished in bilateral bases.? Faint wheeze. On NC. Skin: No jaundice. No rashes. Abdomen: Normal bowel sounds, abdomen soft and nontender. Extremities: No cyanosis or clubbing. Musculoskeletal: No erythematous joints observed. Neurological: Moves all 4 extremities. No myoclonus. Discharge Data Studies Completed and Pending Completed Studies During Hospitalization Category Date Time Status CT chest wo con [id number] Stat Cat Scan 06/12/22 15:04 Completed [place] barium swallow modifd [id number] Routine Exams 06/13/22 17:57 Completed XR chest 1V portable [id number] Stat Exams 06/12/22 10:56 Completed Radiology Impressions Chest X-Ray 06/12/22 10:56 IMPRESSION: 1. Prominent bilateral hua. Possible mediastinal lymphadenopathy. Recommend nonemergent chest CT without and with IV contrast. 2. Bilateral lower lung nodules. Nonspecific. Possible calcified granulomas or metastases. Recommend nonemergent chest CT without and with IV contrast. Chest CT 06/12/22 15:04 IMPRESSION: 1. Benign calcified granuloma anterior mid to lower right lung. 2. Mild basilar atelectasis with possible minimal right basilar infiltrate. Subtle ill-defined hazy ground-glass opacity mid and lower lungs, as well. Consider minimal pneumonia. 3. Limited evaluation of mediastinal and hilar region without IV contrast, with nonspecific lymph nodes within the mediastinum and without significant lymphadenopathy. Modified Barium Swallow 06/13/22 17:57 IMPRESSION: No aspiration or laryngeal penetration identified. Study terminated early at the patient's request. Please see speech therapist report also for recommendations. Laboratory Results WBC 4.6 10^3/uL (4.0-10.0) 06/13/22 04:40 RBC 4.19 10^6/uL (4.1-5.3) 06/13/22 04:40 Hgb 11.1 g/dL (11.5-15.3) L 06/13/22 04:40 Hct 37.5 % (37.0-47.0) 06/13/22 04:40 MCV 89.5 fl (81-99) 06/13/22 04:40 MCH 26.5 pg (28.0-34.0) L 06/13/22 04:40 MCHC 29.6 g/dL (30.0-36.0) L 06/13/22 04:40 RDW 13.2 % (12.1-15.1) 06/13/22 04:40 Plt Count 170 10^3/cmm (130-400) 06/13/22 04:40 MPV 10.7 fL (7.4-10.4) H 06/13/22 04:40 Neut % (Auto) 83.7 % 06/13/22 04:40 Lymph % (Auto) 13.2 % 06/13/22 04:40 Dane % (Auto) 2.0 % 06/13/22 04:40 Eos % (Auto) 0.0 % 06/13/22 04:40 Baso % (Auto) 0.2 % 06/13/22 04:40 Neut # (Auto) 3.86 10^3/uL (1.8-7.7) 06/13/22 04:40 Lymph # (Auto) 0.6 10^3/uL (0.8-4.8) L 06/13/22 04:40 [place] # (Auto) 0.1 10^3/uL (0.2-0.9) L 06/13/22 04:40 Eos # (Auto) 0.0 10^3/uL (0.0-0.8) 06/13/22 04:40 Baso # (Auto) 0.0 10^3/uL (0.0-0.1) 06/13/22 04:40 Nucleated RBC % (auto) 0 % 06/13/22 04:40 Nucleated RBCs # 0.0 /100WBC 06/13/22 04:40 D-Dimer 0.81 ug/mIFEU (0-0.59) H 06/12/22 10:40 Sodium 135 mmol/L (136-145) L 06/13/22 04:40 Potassium 4.5 mmol/L (3.5-5.1) 06/13/22 04:40 Chloride 99 mmol/L (98-107) 06/13/22 04:40 Carbon Dioxide 25 mmol/L (22-29) 06/13/22 04:40 Anion Gap 15.5 (5-19) 06/13/22 04:40 BUN 23 mg/dL (8-23) 06/13/22 04:40 Creatinine 1.2 mg/dL (0.5-0.9) H 06/13/22 04:40 GFR Calculation Not Reportable 06/13/22 04:40 Glucose 295 mg/dL (65-115) H 06/13/22 04:40 POC Glucose 111 mg/dL (70-110) H 06/15/22 06:08 Estimat Average Glucose 217 06/13/22 04:40 Hemoglobin A1c 9.2 % (4.0-6.0) H 06/13/22 04:40 Calculated Osmolality 295 mOsm/kg (285-295) 06/13/22 04:40 Calcium 9.0 mg/dL (8.5-10.5) 06/13/22 04:40 Phosphorus 2.5 mg/dL (2.5-4.5) 06/13/22 04:40 Magnesium 2.0 mg/dL (1.7-2.3) 06/13/22 04:40 Iron 33 ug/dL (37-145) L 06/12/22 10:40 TIBC 254 mcg/dl 06/12/22 10:40 % Saturation 12.9 % (20-50) L 06/12/22 10:40 Unsat Iron Binding 221 ug/dL (112-347) 06/12/22 10:40 Total Bilirubin 0.2 mg/dL (0.15-1.2) 06/13/22 04:40 AST 12 U/L (0-32) 06/13/22 04:40 ALT < 5 U/L (0-33) 06/13/22 04:40 Alkaline Phosphatase 83 U/L (35-105) 06/13/22 04:40 Total Protein 6.6 g/dL (6.6-8.7) 06/13/22 04:40 Albumin 3.2 g/dL (3.5-5.2) L 06/13/22 04:40 Globulin 3.4 g/dL (1.3-4.6) 06/13/22 04:40 Triglycerides 162 mg/dL (0-150) H 06/13/22 04:40 Cholesterol 193 mg/dL (0-200) 06/13/22 04:40 LDL Cholesterol, Calc 122 mg/dL (50-129) 06/13/22 04:40 HDL Cholesterol 39 mg/dL (60-100) L 06/13/22 04:40 LDL/HDL Ratio 3.13 RATIO (0.00-3.22) 06/13/22 04:40 Cholesterol/HDL Ratio 4.95 mg/dL (0.0-4.40) H 06/13/22 04:40 Vitamin B12 625 pg/mL (232-1245) 06/12/22 10:40 Folate 6.2 ng/mL (4.8-37.3) 06/13/22 04:40 Procalcitonin 0.10 ng/mL (0-0.5) 06/12/22 10:40 TSH 2.44 uIU/mL (0.27-4.20) 06/12/22 10:40 Nasal Influ A H1 2008 PCR Not detected (NOT DETECT) 06/12/22 11:25 Adenovirus (PCR) Not detected (NOT DETECT) 06/12/22 11:25 C. pneumoniae DNA (PCR) Not detected (NOT DETECT) 06/12/22 11:25 Coronavirus 229E (PCR) Not detected (NOT DETECT) 06/12/22 11:25 Human Metapneumovir PCR Detected (NOT DETECT) A 06/12/22 11:25 Influenza A (H1) PCR Not detected (NOT DETECT) 06/12/22 11:25 Influenza A (H3) PCR Not detected (NOT DETECT) 06/12/22 11:25 Influenza Type A (PCR) Not detected (NOT DETECT) 06/12/22 11:25 Influenza Type B (PCR) Not detected (NOT DETECT) 06/12/22 11:25 M. pneumoniae (PCR) Not detected (NOT DETECT) 06/12/22 11:25 Parainfluenza 1 (PCR) Not detected (NOT DETECT) 06/12/22 11:25 Parainfluenza 2 (PCR) Not detected (NOT DETECT) 06/12/22 11:25 Parainfluenza 3 (PCR) Not detected (NOT DETECT) 06/12/22 11:25 Parainfluenza 4 (PCR) Not detected (NOT DETECT) 06/12/22 11:25 RSV Type A (PCR) Not detected (NOT DETECT) 06/12/22 11:25 RSV Type B (PCR) Not detected (NOT DETECT) 06/12/22 11:25 Entero/Rhino (PCR) Not detected (NOT DETECT) 06/12/22 11:25 SARS-CoV-2 (PCR) Not detected (NOT DETECT) 06/12/22 11:25 SARS-CoV-2 Ag (Rapid) negative (Negative) 06/15/22 09:47 Vitals Last Vital Signs Temp 97.8 F 06/15/22 07:00 Pulse 77 06/15/22 08:00 Resp 18 06/15/22 08:00 BP 135/81 06/15/22 07:00 Pulse Ox 99 06/15/22 08:00 O2 Del Method Oxymask 06/15/22 08:00 O2 Flow Rate 2.5 06/15/22 08:00 Discharge Plan Discharge Patient Disposition: Xfer SNF Condition: Stable Prescriptions: New benzonatate 100 mg Capsule 100 mg PO TID Qty: 20 0RF Continued carbidopa-levodopa 25-100 mg tablet extended release See Rx Instructions PO BID Qty: 90 2RF Rx Instructions: 1/2 tab in the AM and at noon calcium carbonate [Tums] 200 mg calcium (500 mg) tablet,chewable 200 mg PO Q6H PRN (Reason: Stomach Upset) guaifenesin [Mucinex] 600 mg tablet extended release 12hr 600 mg PO BID PRN (Reason: Congestion) fluticasone propionate [Flonase Allergy Relief] 50 mcg/actuation spray,suspension 2 spray intranasal DAILY PRN (Reason: allergies) Rx Instructions: administer into each nostril Prolia 60 mg/mL syringe 60 mg SUBCUT Q180D cetirizine 5 mg tablet 2.5 mg PO DAILY promethazine-DM 6.25-15 mg/5 mL Syrup 5 ml PO Q8H PRN (Reason: Cough) albuterol sulfate 2.5 mg /3 mL (0.083 %) Solution For Nebulization 2.5 mg INHALATION TID PRN (Reason: Shortness Of Breath) acetaminophen 500 mg Tablet 500 mg PO BID Pepcid 20 mg Tablet 20 mg PO DAILY Dulcolax (bisacodyl) 10 mg Suppository 10 mg IN DAILY PRN (Reason: Constipation) aspirin 81 mg Tablet,Chewable 81 mg PO DAILY Cough Drops 5 mg Lozenge 5 mg MUCOUS MEMBRANE Q4H red yeast rice 600 mg Capsule 600 mg PO DAILY Rx Instructions: give with meal/snack Voltaren Arthritis Pain 1 % Gel 2 g TOPICAL BEDTIME Rx Instructions: apply to single elbow, wrist or hand; for hand includes palm/fingers/back of hand PreserVision AREDS 2,148 mcg-113 mg-45 mg-17.4mg Tablet 1 tab PO DAILY Rx Instructions: administer with AM and PM meals Systane Balance 0.6 % Drops 1 drp OPHTHALMIC (EYE) BID Tresiba U-100 Insulin 100 unit/mL Solution 10 unit SUBCUT BEDTIME Discharge Orders: Discharge Order (Routine); Ordered 06/15/22 Ordered By: Joshua Barrios [facility]: [facility] [Outside] Wesly Santiago DO [Primary Care Provider] - Discharge Diet: As Directed Discharge Activity: Increase activity as tolerated and As per PT/OT instructions Plan of Treatment: 1. Take medications as prescirbed. 2. Increase activity with assistance as tolerated. 3. Continue current dysphagia diet. 4. Continue supplemental oxygen with SPO2 titration goal between 88 and 92 percent. 5. Follow up with primary care provider. Discharge Attestations Time Spent in Discharge Care*: greater than 30 min Quality Metrics Clinical Quality Measures [ No reported AMI, CVA or VTE this stay] Coding Level of Care Code Acute Code for Chg Fwd Diagnoses Hypoxia R09.02 COPD (chronic obstructive pulmonary disease) J44.9 Type 2 diabetes mellitus E11.9 Infection due to human metapneumovirus (hMPV) B34.8 Debility R53.81 Progressive supranuclear palsy G23.1
[2022-06-15] MEDS: insulin lispro 100 unit/1 mL SUBCUT (12:36)
[2022-06-15 12:40] VITALS: PULSE 77; RESP 18; O2SAT 99
--- NOTE | 2022-06-15 12:57 | PC.NURSE ---
Called report to Nancy Soliman RN at [facility]. Notified RN of Pressure wounds on either side of buttocks which this nurse applied optifoam dressing. RN stated those are not new wounds.
[2022-06-15 20:49] LABS: Glucose Point of Care 197 mg/dL (70-110)
== END 2022-06-15 12:40 | disposition skilled nursing facility (03) | DRG 191 ==
LOC: ER 15:35 → MEDSURG 16:53
PROVIDERS: Admitting Provider Student in an Organized Health Care Education/Training Program; Emergency Provider Emergency Medicine; PCP Internal Medicine; Visit Provider Internal Medicine
DX: J44.1 Chronic obstructive pulmonary disease with (acute) exacerbation (principal); G23.1 Progressive supranuclear ophthalmoplegia [Steele-Richardson-Olszewski]; E11.9 Type 2 diabetes mellitus without complications; B97.81 Human metapneumovirus as the cause of diseases classified elsewhere; Z79.51 Long term (current) use of inhaled steroids; Z79.82 Long term (current) use of aspirin; G20 Parkinson's disease; Z88.0 Allergy status to penicillin; Z66 Do not resuscitate
CPT/HCPCS: 36415; 36416; 51702; 71045; 71250; 74230; 80053; 80061; 82607; 82746; 82962; 83036; 83540; 83550; 83735; 84100; 84145; 84443; 85025; 85378; 86403; 87426; 87449; 87486; 87581; 87633; 87641; 92523; 92524; 92611; 93005; 94640; 94664; 96372; 96374; 99285; J1100; J1644; J1815; J2185; J7512; J7626

== ENCOUNTER → 2022-06-27 08:57 | Outpatient (BNVA) | payer OTHER, SELFPAY | PROVIDERS: PCP Internal Medicine; Visit Provider Podiatrist Foot & Ankle Surgery | DX: E11.9 Type 2 diabetes mellitus without complications (principal); M25.472 Effusion, left ankle; M25.471 Effusion, right ankle; B35.1 Tinea unguium; Z79.4 Long term (current) use of insulin | CPT/HCPCS: 11721 ==

== ENCOUNTER → 2022-08-23 10:26 | Outpatient (BNVA) | payer MEDICARE, OTHER, SELFPAY | PROVIDERS: PCP Internal Medicine; Visit Provider Specialist | DX: G23.1 Progressive supranuclear ophthalmoplegia [Steele-Richardson-Olszewski] (principal) | CPT/HCPCS: 99214 ==

== ENCOUNTER → 2022-08-29 10:09 | Outpatient (BNVA) | payer MEDICARE, OTHER, SELFPAY | PROVIDERS: PCP Internal Medicine; Visit Provider Podiatrist Foot & Ankle Surgery | DX: E11.8 Type 2 diabetes mellitus with unspecified complications (principal); M25.472 Effusion, left ankle; M25.471 Effusion, right ankle; B35.1 Tinea unguium; Z79.4 Long term (current) use of insulin | CPT/HCPCS: 11721 ==

== ENCOUNTER 2022-08-30 09:09 | Inpatient (IN) | payer MEDICARE, OTHER, SELFPAY ==
[2022-08-30] VITALS (12 sets, daily range): BP systolic 103–187; BP diastolic 55–98; PULSE 65–115; RESP 18–28; TEMP 36.8–39.3; O2SAT 88–97
--- NOTE | 2022-08-30 09:16 | ECG_ITS ---
[facility] Test Date: 2022-08-30 Pat Name: Barb Joiner Department: Room: Gender: Female Court Collections Officer: : 1940 Requested By: Luis Gaines Order Number: [id number] Jadon MD: Johnathon Tsai M.D. Measurements Intervals [place] Rate: 109 P: 40 HI: 149 QRS: 14 QRSD: 80 T: 56 QT: 310 QTc: 419 Interpretive Statements SINUS TACHYCARDIA MINIMAL ST DEPRESSION [0.025+ mV ST DEPRESSION] Compared to ECG 06/14/2022 10:17:20 ST (T wave) deviation now present Sinus rhythm no longer present Electronically Signed On 08-30-2022 17:32:21 CDT by Johnathon Tsai M.D. [id number]
--- NOTE | 2022-08-30 09:16 | CTR_ITS ---
PROCEDURE INFORMATION: Exam: CT Head Without Contrast Exam date and time: 08/30/2022 9:11 AM Age: 81 years old Clinical indication: Stroke-like symptoms; Drowsines/somnolence and speech disturbance; Lt upper extremity and other: All symptoms left sided weakness; Additional info: Symptoms of acute stroke TECHNIQUE: Imaging protocol: Computed tomography of the head without contrast. Radiation optimization: All CT scans at this facility use at least one of these dose optimization techniques: automated exposure control; mA and/or kV adjustment per patient size (includes targeted exams where dose is matched to clinical indication); or iterative reconstruction. Other technique: STROKE PROTOCOL was implemented. REPORTING DATA: Count of CT and Cardiac NM exams in prior 12 months: This patient has received 3 known CTs and 0 known cardiac nuclear medicine studies in the 12 months prior to the current study. COMPARISON: MR head wo con* [id number] 05/05/2022 1:52 PM RADIATION DOSE METRICS: Total DLP (mGy-cm): 1051.9 FINDINGS: Brain: No intracranial hemorrhage. No mass effect, edema or midline shift. There are vague areas of decreased attenuation within the periventricular white matter likely secondary to chronic microvascular changes. Mild age related cerebral volume loss resulting in prominence of cortical sulci. Cerebral ventricles: Unremarkable for age and degree of cerebral volume loss. Paranasal sinuses: There is complete opacification of the maxillary and sphenoid sinuses with high a 10 UA nolasco within the retained sinus secretions that can be seen secondary to chronic sinusitis or fungal sinusitis. There is also 2.5 cm expansile mass with some internal high 10 UA nolasco within the right posterior nasal fossa probably similar in nature with mucocele to be excluded. Recommend comparison with earlier CT exam of the paranasal sinuses. Mastoid air cells: Visualized mastoid air cells are well aerated. Bones/joints: Unremarkable. No acute fracture. Soft tissues: Unremarkable. CT/CT head thrombolytic [id number] IMPRESSION: 1. No acute intracranial abnormality. 2. Chronic sinusitis completely opacifying the maxillary and sphenoid sinuses with 2.5 cm expansile mass within the right posterior nasal fossa as discussed above. Continued follow-up advised. ASSESSMENT: ASPECTS ([place] Stroke Program Early CT Score) is 10.
[2022-08-30 09:23] LABS: Basophils # 0.1 10^3/uL (0.0-0.1); Basophils % 0.6 %; Eosinophils % 0.3 %; Hematocrit 38.7 % (37.0-47.0); Hemoglobin 11.7 g/dL (11.5-15.3); Lymphocytes # 1.2 10^3/uL (0.8-4.8); Lymphocytes % 10.4 %; Mean Corpuscular HGB Conc 30.2 g/dL (30.0-36.0); Mean Corpuscular Hemoglobin 26.8 pg (28.0-34.0); Mean Corpuscular Volume 88.8 fl (81-99); Mean Platelet Volume 10.7 fL (7.4-10.4); Monocytes # 0.7 10^3/uL (0.2-0.9); Monocytes % 5.7 %; Neutrophils # 9.58 10^3/uL (1.8-7.7); Neutrophils % 82.1 %; Nucleated Red Blood Cells % 0 %; Platelet Count 205 10^3/cmm (130-400); Red Blood Count 4.36 10^6/uL (4.1-5.3); Red Cell Distribution Width 14.6 % (12.1-15.1); White Blood Count 11.7 10^3/uL (4.0-10.0)
[2022-08-30 09:37] LABS: INR 0.91 (0.8-1.2)
[2022-08-30 09:38] LABS: Partial Thromboplastin Time 25.6 SECONDS (23.9-36.7)
[2022-08-30 10:07] LABS: ABG PCO2 40.9 mmHg (35-45); ABG PH Result 7.41 (7.35-7.45); Arterial Blood Gas Hematocrit 38.4 % (37-47); Blood Gas Allen Test Pos; Blood Gas Operator Identificat WALCI; Blood Gas Sample Site Radial, left; Blood Gas Sample Type Arterial; Carboxyhemoglobin 1.6 %THgb (0.4-20.1); HCO3 ABG 25.8 mmol/L (22-26); HGB O2 Sat 90.8 % (95-100); Ionized Calcium Level - ABG 1.3 mmol/L (1.1-1.4); Methemoglobin 0.5 % (0.4-1.5); Oxygen Device NC; Oxygen Saturation ABG 92.7; PO2 ABG 61.5 mmHg (80.0-100.0); Potassium Level - ABG 4.2 mmol/L (3.5-5.0); Total Hemoglobin 12.5 g/dL (12-16)
[2022-08-30 10:10] LABS: Alanine Aminotransferase 9 U/L (0-33); Albumin Level 3.7 g/dL (3.5-5.2); Alkaline Phosphatase 89 U/L (35-105); Anion Gap 16.5 (5-19); Aspartate Amino Transferase 12 U/L (0-32); Blood Urea Nitrogen 19 mg/dL (8-23); Calcium 9.6 mg/dL (8.5-10.5); Carbon Dioxide 24 mmol/L (22-29); Chloride 104 mmol/L (98-107); Globulin 3.4 g/dL (1.3-4.6); Glucose 205 mg/dL (65-115); Osmolality Calculated 298 mOsm/kg (285-295); Potassium 4.5 mmol/L (3.5-5.1); Sodium 140 mmol/L (136-145); Total Bilirubin 0.3 mg/dL (0.15-1.2); Total Protein 7.1 g/dL (6.6-8.7)
--- NOTE | 2022-08-30 10:18 | XRR_ITS ---
PROCEDURE INFORMATION: Exam: XR Chest Exam date and time: 08/30/2022 10:33 AM Age: 81 years old Clinical indication: Cough and dyspnea; Patient HX: Stroke alert PT unresponsive; Additional info: Dyspnea/cough TECHNIQUE: Imaging protocol: Radiologic exam of the chest. Views: 1 view. COMPARISON: CT chest con [id number] 06/12/2022 3:15 PM FINDINGS: Lungs: Lung volumes are decreased. Indistinct wispy opacities left lung base likely secondary to minor atelectatic changes. Stable small calcified granulomas both lung renee unchanged. Pleural spaces: Unremarkable. No pleural effusion. No pneumothorax. Heart/Mediastinum: Cardiac silhouette borderline enlarged, unchanged. Bones/joints: Mild degenerative changes both shoulder joints and spine. XR/XR chest 1V portable [id number] IMPRESSION: Minor atelectatic changes left lung base otherwise negative exam..
--- NOTE | 2022-08-30 10:19 | ED_ITS ---
HPI - Weakness General: Chief complaint: Weakness Stated complaint: Stoke Alert Time Seen by Provider: 08/30/22 09:15 Source: patient Mode of arrival: ambulatory History of Present Illness: 81-year-old female presents emergency room via EMS from a local residential with concern CVA also has a history of previous CVA also has a history of Parkinson's are complaining of some left-sided weakness and facial droop. Last known well was 7 AM on arrival here she has a temp of 102 she has symmetrical facial movements normal sensation left to right she is not able to respond well to commands because of her Parkinson's and I suspect the effect of what ever infection she is likely to have. Dr. Oconnell was in the department seeing the patient as well we both concur that this is a result of infection not stroke nor proceeding with work-up in that direction. Initial CT head unremarkable. Patient unable to give significant history assistance. MD Complaint: generalized weakness Onset (ago): hour(s) Relieving factors: none Exacerbating factors: none Review of Systems General: Reports: ROS unobtainable due to medical condition and ROS unobtainable due to mental status PFSH ED PFSH: Medical History Chronic kidney disease COPD (chronic obstructive pulmonary disease) GERD (gastroesophageal reflux disease) Hypertension Progressive supranuclear palsy Type 2 diabetes mellitus Family History Other CAD (coronary artery disease) Social History Smoking and tobacco status: never smoked Alcohol intake: never Substance/Drug Use: never Household members: other Housing: [facility] Physical Exam HENMT: COMMON NORMALS: normocephalic, atraumatic and hearing grossly normal bilaterally HEAD & SCALP: normocephalic and atraumatic Resp: COMMON NORMALS: normal respiratory effort, No retractions, No use of ac cessory muscles and clear to auscultation bilaterally AUSCULTATION: clear to auscultation bilaterally Cardio: COMMON NORMALS: regular rhythm RATE: tachycardic RHYTHM: regular rhythm GI: COMMON NORMALS: Soft to palpation and No hepatosplenomegaly present AUSCULTATION: Yes normoactive bowel sounds PALPATION: Yes Soft to palpation, No Tenderness to palpation present (GI), No Guarding due to palpation present (GI) and Yes No hepatosplenomegaly present Extremity: COMMON NORMALS: normal to inspection, capillary refill normal, no clubbing, cyanosis or edema, no calf tenderness and no pedal edema Skin: COMMON NORMALS: no rashes or lesions noted GENERAL SKIN EXAM: no rashes or lesions noted Course Vital Signs: Vital signs: Vital Signs Temperature 98.1 F 08/31/22 04:00 Pulse Rate 72 08/31/22 04:34 Respiratory Rate 18 08/31/22 04:00 Blood Pressure 117/71 08/31/22 04:00 Pulse Oximetry 95 08/31/22 04:34 Oxygen Delivery Me thod Nasal Cannula 08/31/22 04:34 Oxygen Flow Rate 3 08/31/22 04:34 Fraction of Inspir ed Oxygen 3 08/30/22 14:30 MDM - Weakness Medical Decision Making Patient febrile with leukocytosis and a abnormal UA. Admit for acute cystitis. She does have some altered mental status. Per nursing report this is off of her baseline although she does have some underlying Parkinson's and dementia issues as well. Discussed with hospitalist orders written Medical Records I reviewed the patient's medical records. Lab Data I reviewed the patient's lab results. 08/30/22 09:14 08/30/22 09:[address] 08/30/22 09:16 IMPRESSION: 1. No acute intracranial abnormality. 2. Chronic sinusitis completely opacifying the maxillary and sphenoid sinuses with 2.5 cm expansile mass within the right posterior nasal fossa as discussed above. Continued follow-up advised. ASSESSMENT: ASPECTS ([place] Stroke Program Early CT Score) is 10. Chest X-Ray 08/30/22 10:18 IMPRESSION: Minor atelectatic changes left lung base otherwise negative exam.. Laboratory Results WBC 11.7 10^3/uL (4.0-10.0) H 08/30/22 09:14 RBC 4.36 10^6/uL (4.1-5.3) 08/30/22 09:14 Hgb 11.7 g/dL (11.5-15.3) 08/30/22 09:14 Hct 38.7 % (37.0-47.0) 08/30/22 09:14 MCV 88.8 fl (81-99) 08/30/22 09:14 MCH 26.8 pg (28.0-34.0) L 08/30/22 09:14 MCHC 30.2 g/dL (30.0-36.0) 08/30/22 09:14 RDW 14.6 % (12.1-15.1) 08/30/22 09:14 Plt Count 205 10^3/cmm (130-400) 08/30/22 09:14 MPV 10.7 fL (7.4-10.4) H 08/30/22 09:14 Neut % (Auto) 82.1 % 08/30/22 09:14 Lymph % (Auto) 10.4 % 08/30/22 09:14 [place] % (Auto) 5.7 % 08/30/22 09:14 Eos % (Auto) 0.3 % 08/30/22 09:14 Baso % (Auto) 0.6 % 08/30/22 09:14 Neut # (Auto) 9.58 10^3/uL (1.8-7.7) H 08/30/22 09:14 Lymph # (Auto) 1.2 10^3/uL (0.8-4.8) 08/30/22 09:14 [place] # (Auto) 0.7 10^3/uL (0.2-0.9) 08/30/22 09:14 Eos # (Auto) 0.0 10^3/uL (0.0-0.8) 08/30/22 09:14 Baso # (Auto) 0.1 10^3/uL (0.0-0.1) 08/30/22 09:14 Nucleated RBC % (auto) 0 % 08/30/22 09:14 Nucleated RBCs # 0.0 /100WBC 08/30/22 09:14 PT 12.50 SECONDS (12.1-14.9) 08/30/22 09:14 INR 0.91 (0.8-1.2) 08/30/22 09:14 APTT 25.6 SECONDS (23.9-36.7) 08/30/22 09:14 Specimen Type Arterial 08/30/22 09:56 Sample Site Radial, left 08/30/22 09:56 ABG pH 7.41 (7.35-7.45) 08/30/22 09:56 ABG pCO2 40.9 mmHg (35-45) 08/30/22 09:56 ABG pO2 61.5 mmHg (80.0-100.0) L 08/30/22 09:56 ABG HCO3 25.8 mmol/L (22-26) 08/30/22 09:56 ABG O2 Saturation 92.7 08/30/22 09:56 ABG Base Excess 1.0 mmol/L (-2.0-2.0) 08/30/22 09:56 Jason Test Pos 08/30/22 09:56 A-a O2 Gradient 5.0 mmHg (5-10) 08/30/22 09:56 Hematocrit 38.4 % (37-47) 08/30/22 09:56 Hgb O2 Saturation 90.8 % (95-100) L 08/30/22 09:56 Carboxyhemoglobin 1.6 %THgb (0.4-20.1) 08/30/22 09:56 Methemoglobin 0.5 % (0.4-1.5) 08/30/22 09:56 Total Hemoglobin 12.5 g/dL (12-16) 08/30/22 09:56 Sodium 143.0 mmol/L (131-143) 08/30/22 09:56 Potassium 4.2 mmol/L (3.5-5.0) 08/30/22 09:56 Glucose 190.0 mg/dL (70-115) H 08/30/22 09:56 Ionized Calcium 1.3 mmol/L (1.1-1.4) 08/30/22 09:56 O2 Delivery Device Nc 08/30/22 09:56 O2 Liters/Min 4.0 % 08/30/22 09:56 Database Designer ID [place] 08/30/22 09:56 Sodium 140 mmol/L (136-145) 08/30/22 09:14 Potassium 4.5 mmol/L (3.5-5.1) 08/30/22 09:14 Chloride 104 mmol/L (98-107) 08/30/22 09:14 Carbon Dioxide 24 mmol/L (22-29) 08/30/22 09:14 Anion Gap 16.5 (5-19) 08/30/22 09:14 BUN 19 mg/dL (8-23) 08/30/22 09:14 Creatinine 1.2 mg/dL (0.5-0.9) H 08/30/22 09:14 GFR Calculation Not Reportable 08/30/22 09:14 Glucose 205 mg/dL (65-115) H 08/30/22 09:14 POC Glucose 211 mg/dL (70-110) H 08/30/22 11:04 Calculated Osmolality 298 mOsm/kg (285-295) H 08/30/22 09:14 Lactic Acid 2.1 mmol/L (0.5-2.2) 08/30/22 10:12 Lactic Acid (Sepsis) 1.0 mmol/L (0.5-2.2) 08/30/22 13:15 Calcium 9.6 mg/dL (8.5-10.5) 08/30/22 09:14 Total Bilirubin 0.3 mg/dL (0.15-1.2) 08/30/22 09:14 AST 12 U/L (0-32) 08/30/22 09:14 ALT 9 U/L (0-33) 08/30/22 09:14 Alkaline Phosphatase 89 U/L (35-105) 08/30/22 09:14 Creatine Kinase 26 U/L (26-192) 08/30/22 09:14 Total Protein 7.1 g/dL (6.6-8.7) 08/30/22 09:14 Albumin 3.7 g/dL (3.5-5.2) 08/30/22 09:14 Globulin 3.4 g/dL (1.3-4.6) 08/30/22 09:14 Urine Color Yellow (Yellow) 08/30/22 10:00 Urine Appearance Cloudy (CLEAR) A 08/30/22 10:00 Urine pH 5 (5-7) 08/30/22 10:00 Ur Specific [place] 1.020 (1.005-1.030) 08/30/22 10:00 Urine Protein 2+ (Negative) H 08/30/22 10:00 Urine Glucose (UA) Norm (Normal) 08/30/22 10:00 Urine Ketones Negative (Negative) 08/30/22 10:00 Urine Blood 2+ (Negative) H 08/30/22 10:00 Urine Nitrate Positive (Negative) H 08/30/22 10:00 Urine Bilirubin Neg (Negative) 08/30/22 10:00 Urine Urobilinogen Norm mg/dL (Negative) 08/30/22 10:00 Ur Leukocyte Esterase 2+ (Negative) H 08/30/22 10:00 Urine RBC 5-10 /hpf (0-2) H 08/30/22 10:00 Urine WBC >100 /hpf (0-5) H 08/30/22 10:00 Ur Squamous Epith Cells 5-10 /hpf (0-5) H 08/30/22 10:00 Amorphous Sediment Not Reportable 08/30/22 10:00 Urine Bacteria 4+ /hpf (NONE) H 08/30/22 10:00 Urine Mucus 2+ /hpf 08/30/22 10:00 Urine Opiates Screen Negative ng/mL (Negative) 08/30/22 10:00 Ur Barbiturates Screen Negative ng/mL (Negative) 08/30/22 10:00 Ur Phencyclidine Scrn Negative ng/mL (Negative) 08/30/22 10:00 Ur Amphetamines Screen Negative ng/mL (Negative) 08/30/22 10:00 U Benzodiazepines Scrn Negative ng/mL (Negative) 08/30/22 10:00 Urine Cocaine Screen Negative ng/mL (Negative) 08/30/22 10:00 U Marijuana (THC) Screen Negative ng/mL (Negative) 08/30/22 10:00 Discharge Plan Discharge Patient Disposition: Admitted As Inpatient Admit Provider: Raheem Yanes Clinical Impression: UTI (urinary tract infection), Encephalopathy acute, Type 2 diabetes mellitus, COPD (chronic obstructive pulmonary disease) Condition: Stable Coding Level of Care Code ED Mainframe Software Developer for Marilia Booker
[2022-08-30 10:23] LABS: Creatine Phosphokinase 26 U/L (26-192)
[2022-08-30 10:40] LABS: Lactic Sepsis W/Reflex 2.1 mmol/L (0.5-2.2)
[2022-08-30 11:01] LABS: Protein Urine 2+ (Negative); Urine Appearance Cloudy (CLEAR); Urine Color Yellow (Yellow); pH Urine 5 (5-7)
[2022-08-30 11:02] LABS: Add Urine Microscopic? YES; Bilirubin Urine Neg (Negative); Blood Urine 2+ (Negative); Glucose Urine UA Norm (Normal); Ketones Urine Negative (Negative); Leukocyte Esterase Urine 2+ (Negative); Nitrate Urine Positive (Negative); Urobilinogen Urine Norm (Negative)
[2022-08-30 11:07] LABS: Amphetamines Screen Urine Negative (Negative); Barbiturates Screen Urine Negative (Negative); Benzodiazepines Screen Urine Negative (Negative); Cocaine Screen Urine Negative (Negative); Opiate Screen Urine Negative (Negative); PCP Screen Urine Negative (Negative); THC Screen Urine Negative (Negative)
[2022-08-30 11:07] LABS: Glucose Point of Care 211 mg/dL (70-110)
[2022-08-30 11:22] LABS: Bacteria Urine 4+ /hpf; WBC Urine >100 /hpf (0-5)
[2022-08-30 11:23] LABS: Add Urine Culture? Yes; Mucus Urine 2+ /hpf
[2022-08-30] MEDS: cefTRIAXone 1,000 MG in sodium chloride 0.9% (plus) 50 ML 100 MG IV (11:35)
[2022-08-30] MEDS: acetaminophen 1,000 MG/100 ML PIGGYBACK 400 MG IV (11:54)
--- NOTE | 2022-08-30 11:57 | P.CONIM_ITS ---
Providers/Reason For Consult Consulting Physician/Specialty*: Eusebio Oconnell MD Neurology and Epilepsy Reason for Consult*: Code stroke emergency department room 10 Primary Care Provider: Wesly Santiago DO History of Present Illness History of Present Illness Barb Joiner is a 81 year old female with a history of Parkinson disease. Patient is a senior care resident. Patient also has a history of bilateral total knee replacements. The patient was transferred from the senior care facility secondary to reported change in mental status. Code stroke was initiated. Upon arrival to the emergency room, patient was reported to have an elevated blood pressure of 201/113 with heart rate of 115 O2 saturation 83% on room air and temperature of 102.7 axillary. I spoke with the ER physician Dr. Sharma who informing patient will be evaluated for sepsis. NIH score =1 on neurological assessment. Past medical history: Parkinson disease Bilateral total knee surgeries History of old stroke Restless leg syndrome Gait difficulty Drug allergies: Adhesive tape which resulted in a rash Sulfonamide antibiotics which resulted in a rash Gabapentin which resulted in hallucinations where things were floating on the ceiling Hydrocodone hallucinations resulted in patient's experiencing things floating on the ceiling Penicillin which resulted in sedation Home medications: Phenergan 6.25 mg every 8 hours for cough Cetirizine 2.5 mg p.o. daily Mucinex 600 mg p.o. twice daily Pepcid 20 mg p.o. daily Aspirin 81 mg p.o. acute Albuterol multidose inhaler every 8 hours Sinemet 25/100 mg tablets 1 p.o. twice daily Ropinirole 0.25 mg p.o. nightly for restless leg syndrome Prolia 60 mg/mL subcutaneously every 6 months Tresiba 100 units/mL 15 units of insulin nightly subcutaneously Humalog insulin 100 units/mL 5 units with meals subcutaneously Habits: Unknown Social history: Patient resides in a senior care Review of Systems General: Reports: 10 or more systems reviewed and unremarkable except in HPI and below Medications/Allergies Home Medications Medication Instructions Recorded Confirmed Last Taken Type calcium carbonate 200 mg calcium 200 mg PO Q6H PRN Stomach Upset 11/09/21 08/30/22 Unknown History (500 mg) chewable tablet (Tums) denosumab 60 mg/mL subcutaneous 60 mg SUBCUT Q180D 11/09/21 08/30/22 Unknown History syringe (Prolia) fluticasone propionate 50 2 spray intranasal DAILY PRN 11/09/21 08/30/22 Unknown History mcg/actuation nasal allergies spray,suspension (Flonase Allergy Relief) guaifenesin 600 mg tablet, 600 mg PO BID PRN Congestion 11/09/21 08/30/22 Unknown History extended release 12 hr (Mucinex) cetirizine 5 mg tablet 2.5 mg PO DAILY 03/01/22 08/30/22 Unknown History carbidopa ER 25 mg-levodopa 100 mg See Rx Instructions PO BID #90 tabs 06/02/22 08/30/22 Unknown Rx tablet,extended release acetaminophen 500 mg tablet 500 mg PO BID 06/12/22 08/30/22 Unknown History albuterol sulfate 2.5 mg/3 mL 2.5 mg inhalation TID PRN 06/12/22 08/30/22 Unknown History (0.083 %) solution for nebulization Shortness Of Breath aspirin 81 mg chewable tablet 81 mg PO DAILY 06/12/22 08/30/22 Unknown History bisacodyl 10 mg rectal suppository 10 mg CO DAILY PRN Constipation 06/12/22 Unknown History (Dulcolax (bisacodyl)) diclofenac sodium 1 % topical gel 2 g topical BEDTIME 06/12/22 08/30/22 Unknown History (Voltaren Arthritis Pain) famotidine 20 mg tablet (Pepcid) 20 mg PO DAILY 06/12/22 08/30/22 Unknown History insulin degludec 100 unit/mL 15 unit SUBCUT BEDTIME 06/12/22 08/30/22 Unknown History subcutaneous solution (Tresiba U-100 Insulin) menthol 5 mg lozenges (Cough Drops) 5 mg mucous membrane Q4H 06/12/22 08/30/22 Unknown History promethazine-DM 6.25 mg-15 mg/5 mL 5 ml PO Q8H PRN Cough 06/12/22 08/30/22 Unknown History oral syrup propylene glycol 0.6 % eye drops 1 drp ophthalmic (eye) BID 06/12/22 08/30/22 Unknown History (Systane Balance) red yeast rice 600 mg capsule 600 mg PO DAILY 06/12/22 08/30/22 Unknown History vitamins A,C,Y-mlce-lgslhj 2,148 1 tab PO DAILY 06/12/22 08/30/22 Unknown History mcg-113 mg-45 mg-17.4 mg tablet (PreserVision AREDS) insulin lispro 100 unit/mL 5 unit SUBCUT TID 08/30/22 08/30/22 Unknown History subcutaneous pen (Humalog Tempo Pen (U-100) Insulin) magnesium hydroxide 400 mg/5 mL 30 ml PO DAILY PRN Constipation 08/30/22 08/30/22 Unknown History oral suspension (Milk of Magnesia) ropinirole 0.25 mg tablet 0.25 mg PO BEDTIME 08/30/22 08/30/22 Unknown History sodium phosphates 19 gram-7 118 ml CO PRN PRN Constipation 08/30/22 08/30/22 Unknown History gram/118 mL enema (Fleet Enema) Allergies Allergy/AdvReac Type Severity Reaction Status Date / Time adhesive tape Allergy Mild Rash Verified 08/29/22 10:36 Sulfa (Sulfonamide Allergy Mild Rash Verified 08/29/22 10:36 Antibiotics) gabapentin AdvReac floats on Verified 08/29/22 10:36 the ceiling hydrocodone AdvReac Floats on Verified 08/29/22 10:36 the ceiling Penicillins AdvReac Makes her Verified 08/29/22 10:36 sleep Current Medications Generic Name Dose Route Start Last Admin Trade Name Freq PRN Reason Stop Dose Admin Ceftriaxone Sodium 1,000 mg/ 50 mls @ 100 mls/hr 08/30/22 11:32 08/30/22 11:35 Sodium Chloride IV 08/30/22 12:01 100 mls/hr ONCE ONE Administration Protocol Acetaminophen 1,000 mg in 100 mls @ 400 mls/hr 08/30/22 11:47 08/30/22 11:54 Acetaminophen IV 08/30/22 12:01 400 mls/hr ONCE ONE Administration PFSH Acute PFSH: Medical History COPD (chronic obstructive pulmonary disease) Progressive supranuclear palsy Type 2 diabetes mellitus Family History Other CAD (coronary artery disease) Social History Smoking and tobacco status: never smoked Alcohol intake: never Substance/Drug Use: never Household members: other Housing: Care Home Vitals/I&O/Wt Last Vital Signs Temp 102.7 F H 08/30/22 09:50 Pulse 109 H 08/30/22 11:01 Resp 26 H 08/30/22 11:01 BP 165/87 08/30/22 11:01 Pulse Ox 93 08/30/22 11:01 O2 Del Method Nasal Cannula 08/30/22 11:01 O2 Flow Rate 3 08/30/22 11:01 Physical Exam Narrative: NIH score =1 Blood pressure 201/113 heart rate 115 O2 saturation 83% on room air serum blood glucose Accu-Chek 235 The patient is alert and oriented to person. Patient answered both questions correctly and follows both commands. Extraocular movements intact. There were no nystagmus. Visual renee appear to be full grossly via confrontation. Speech mildly dysarthric. Cranial nerves II through XII revealed no obvious facial weakness. Patient was able to protrude her tongue. Motor testing revealed resting tremor in the upper and lower extremities but more pronounced in the upper extremities. Patient was able to lift her arms against gravity and resistance with resting tremor. Lower extremities patient moved her toes and feet symmetrically although she was unable to lift her legs off of the bed. Patient reports chronic history of gait difficulty and not ambulating. Patient stated that she has not walked for a long time. There was some upper extremity cogwheel rigidity in her upper extremities. Deep tendon reflexes grossly symmetrical at 2+ except for difficulty obtaining the Achilles reflexes bilaterally. Plantar responses flexor bilaterally. There was no clonus. Sensory examination was intact to touch and pinprick. There was no extinction on double sensory stimulation. Data 08/30/22 09:14 08/30/22 09:14 Micro: Microbiology 08/30/22 09:49 Blood Culture - Preliminary Blood SPECIMEN COLLECTED 08/30/22 10:12 Blood Culture - Preliminary Blood SPECIMEN COLLECTED A&P Assessment and plan (1) Encephalopathy acute: Assessment: 1. Encephalopathy 2. Hypoxia 3. Parkinson disease, chronic and addressed by another physician 4. Elevated temperature of 102.7 with heart rate of 115 and elevated blood pres sure of 201/113 agree with evaluating patient for sepsis Plan: 1. Agree with septic work-up 2. Patient not a candidate for tPA 3. Recommend discontinuing Phenergan (promethazine) since this medication can cause parkinsonism and potentially exacerbate the patient's Parkinson disease (2) Hypoxia: Consult Attestations Medical Necessity Statement: Patient evaluated by neurology for code stroke emergency department room 10 Coding Level of Care Code 11614 Diagnoses Encephalopathy acute G93.40 Hypoxia R09.02 Time Spent (min) 30
[2022-08-30 12:05] LABS: Reflex Lactate Order REFLEX LACTIC ORDERD
--- NOTE | 2022-08-30 12:21 | P.HP_ITS ---
Providers/Chief Complaint Admitting Physician: Raheem Yanes MD Primary Care Provider: Wesly Santiago DO Chief Complaint: Stoke Alert History of Present Illness Barb Joiner is a 81 year old female with history of supranuclear palsy presenting to the emergency department as a stroke alert. According to the nurse at the nursing facility, she woke up this morning with some shaking. She ate breakfast. At breakfast they were worried she was not responding normally, and there was concern about a possible facial droop. Neurology in the emergency department saw her in the ER, noted fever, did not believe a stroke was present, and a UTI was found. Further history from the patient cannot be obtained this time secondary to pre-existing health conditions as well as encephalopathy. Son was present during my interview and elaborated on past medical history. Review of Systems General: Reports: ROS unobtainable due to medical condition Medications/Allergies Home Medications Medication Instructions Recorded Confirmed Last Taken Type calcium carbonate 200 mg calcium 200 mg PO Q6H PRN Stomach Upset 11/09/21 08/30/22 Unknown History (500 mg) chewable tablet (Tums) denosumab 60 mg/mL subcutaneous 60 mg SUBCUT Q180D 11/09/21 08/30/22 Unknown History syringe (Prolia) fluticasone propionate 50 2 spray intranasal DAILY PRN 11/09/21 08/30/22 Unknown History mcg/actuation nasal allergies spray,suspension (Flonase Allergy Relief) guaifenesin 600 mg tablet, 600 mg PO BID PRN Congestion 11/09/21 08/30/22 Unknown History extended release 12 hr (Mucinex) cetirizine 5 mg tablet 2.5 mg PO DAILY 03/01/22 08/30/22 Unknown History carbidopa ER 25 mg-levodopa 100 mg See Rx Instructions PO BID #90 tabs 06/02/22 08/30/22 Unknown Rx tablet,extended release acetaminophen 500 mg tablet 500 mg PO BID 06/12/22 08/30/22 Unknown History albuterol sulfate 2.5 mg/3 mL 2.5 mg inhalation TID PRN 06/12/22 08/30/22 Unknown History (0.083 %) solution for nebulization Shortness Of Breath aspirin 81 mg chewable tablet 81 mg PO DAILY 06/12/22 08/30/22 Unknown History bisacodyl 10 mg rectal suppository 10 mg NC DAILY PRN Constipation 06/12/22 08/30/22 Unknown History (Dulcolax (bisacodyl)) diclofenac sodium 1 % topical gel 2 g topical BEDTIME 06/12/22 08/30/22 Unknown History (Voltaren Arthritis Pain) famotidine 20 mg tablet (Pepcid) 20 mg PO DAILY 06/12/22 08/30/22 Unknown History insulin degludec 100 unit/mL 15 unit SUBCUT BEDTIME 06/12/22 08/30/22 Unknown History subcutaneous solution (Tresiba U-100 Insulin) menthol 5 mg lozenges (Cough Drops) 5 mg mucous membrane Q4H 06/12/22 08/30/22 Unknown History promethazine-DM 6.25 mg-15 mg/5 mL 5 ml PO Q8H PRN Cough 06/12/22 08/30/22 Unknown History oral syrup propylene glycol 0.6 % eye drops 1 drp ophthalmic (eye) BID 06/12/22 08/30/22 Unknown History (Systane Balance) red yeast rice 600 mg capsule 600 mg PO DAILY 06/12/22 08/30/22 Unknown History vitamins A,C,B-tioc-xttgdk 2,148 1 tab PO DAILY 06/12/22 08/30/22 Unknown History mcg-113 mg-45 mg-17.4 mg tablet (PreserVision AREDS) insulin lispro 100 unit/mL 5 unit SUBCUT TID 08/30/22 08/30/22 Unknown History subcutaneous pen (Humalog Tempo Pen (U-100) Insulin) magnesium hydroxide 400 mg/5 mL 30 ml PO DAILY PRN Constipation 08/30/22 08/30/22 Unknown History oral suspension (Milk of Magnesia) ropinirole 0.25 mg tablet 0.25 mg PO BEDTIME 08/30/22 08/30/22 Unknown History sodium phosphates 19 gram-7 118 ml NC PRN PRN Constipation 08/30/22 08/30/22 Unknown History gram/118 mL enema (Fleet Enema) Allergies Allergy/AdvReac Type Severity Reaction Status Date / Time adhesive tape Allergy Mild Rash Verified 08/29/22 10:36 Sulfa (Sulfonamide Allergy Mild Rash Verified 08/29/22 10:36 Antibiotics) gabapentin AdvReac floats on Verified 08/29/22 10:36 the ceiling hydrocodone AdvReac Floats on Verified 08/29/22 10:36 the ceiling Penicillins AdvReac Makes her Verified 08/29/22 10:36 sleep PFSH Acute PFSH: Medical History (Updated 08/30/22 @ 12:33 by Raheem Yanes MD) Chronic kidney disease COPD (chronic obstructive pulmonary disease) GERD (gastroesophageal reflux disease) Hypertension Progressive supranuclear palsy Type 2 diabetes mellitus Family History Other CAD (coronary artery disease) Social History Smoking and tobacco status: never smoked Alcohol intake: never Substance/Drug Use: never Household members: other Housing: Prison Vitals/I&O/Wt Last Vital Signs Temp 101.4 F H 08/30/22 12:15 Pulse 105 H 08/30/22 12:15 Resp 22 H 08/30/22 12:15 BP 145/67 08/30/22 12:15 Pulse Ox 94 08/30/22 12:15 O2 Del Method Nasal Cannula 08/30/22 12:15 O2 Flow Rate 3 08/30/22 12:15 Physical Exam Narrative: General exam is a white female, who tries to speak but does so very slowly. Son reports some of this is baseline, consistent with her supranuclear palsy, but she does seem somewhat slower than usual. HEENT: Pupils equally round. Oropharynx dry. Neck is supple no lymphadenopathy or thyromegaly Cardiovascular tachycardic, no murmur Lungs clear no wheezing or crackles Abdomen is soft, positive bowel sounds. exam is deferred Extremities no cyanosis or clubbing. Trace edema bilaterally. Some erythema left lower extremity, and patches. Cap refill around 2 seconds. Skin see findings above Neuro: Globally weak. No focal weakness Data 08/30/22 09:14 08/30/22 09:14 Other Labs: EKG demonstrates sinus tachycardia, normal axis, nonspecific ST-T wave changes on my review Chest x-ray which I reviewed demonstrates probable atelectasis left lung, lower lobe INR 0.91 ABG demonstrates pH 7.41, PCO2 40, PO2 61 on 4 L LFTs normal. Urinalysis with greater than 100 whites, 5-10 reds Urine drug screen negative CT head no change Micro: Microbiology 08/30/22 09:49 Blood Culture - Preliminary Blood SPECIMEN COLLECTED 08/30/22 10:12 Blood Culture - Preliminary Blood SPECIMEN COLLECTED A&P Assessment and plan (1) Encephalopathy acute: Patient presents with acute encephalopathy. This is likely secondary to UTI Stroke thought unlikely Monitor closely for improvement (2) UTI (urinary tract infection): Patient presents with significant UTI Catheter has been placed Rocephin has been given. Continue IV every 24 hours Urine and blood cultures have been drawn Follow closely for improvement Hydration with IV fluids (3) Hypoxia: Left lower lobe atelectasis noted on x-ray N.p.o. for now Wean oxygen as tolerated This may be secondary to significant infection Further evaluation should this persist. She did require oxygen at the end of her last hospital stay. (4) Lower extremity edema: She has some lower extremity edema, with some with erythema on the left. Check venous duplex on the left Continue to follow this erythema closely, and adjust clinical treatment if it worsens. Cellulitis possible but not likely. (5) Type 2 diabetes mellitus: Initiate sliding scale insulin When diet is started, consistent carb diet. Plan History of supranuclear palsy, with significant weakness, wheelchair-bound at nursing facility Multiple other medical problems as outlined in past medical history Allow natural Lovenox for DVT prophylaxis Attestations Medical Necessity Statement*: Will require greater than 2 midnight stay, secondary to complicated UTI with concurrent encephalopathy Diagnoses Encephalopathy acute G93.40 UTI (urinary tract infection) N39.0 Hypoxia R09.02 Lower extremity edema R60.0 Type 2 diabetes mellitus E11.9 Time Spent (min) 46
--- NOTE | 2022-08-30 12:27 | USCV_ITS ---
Barb Joiner Age: 81 Gender: F : 1940 Exam Date: 08/30/2022 13:27 Ordering Phys: Raheem Yanes MD Technologist: CT Exam Location: [facility] Indication: edema PROCEDURES: Venous duplex imaging was performed in only the left lower extremity. In addition, the posterior tibial and peroneal trunk were evaluated. On the left side, the common femoral, superficial femoral, profunda femoral, popliteal, posterior tibial, greater saphenous veins, and the peroneal trunk were identified and interrogated in the standard fashion. These veins were found to be easily compressible with spontaneous blood flow. No evidence of insufficiency or thrombus noted. FINDINGS: normal us CONCLUSIONS No evidence of left lower extremity DVT. Devonte Lamb MD (Electronically Signed) Final Date: 30 August 2022 16:34 S
[2022-08-30] MEDS: sodium chloride 0.9% 1,000 ML 75 ML IV (16:57)
[2022-08-30] MEDS: enoxaparin 40 mg/0.4 mL Syringe SUBCUT (16:57)
--- NOTE | 2022-08-30 19:21 | PC.NURSE ---
Notified Dr. Yanes patient is NPO with a blood sugar of 211. Dr. Yanes stated to hold insulin. notified Dr. Yanes of patient not awake enough to do a dysphasia screening.
[2022-08-30 20:25] LABS: Glucose Point of Care 154 mg/dL (70-110)
[2022-08-31] VITALS (9 sets, daily range): BP systolic 116–138; BP diastolic 66–75; PULSE 71–78; RESP 16–18; TEMP 36.4–36.9; O2SAT 90–97
[2022-08-31] MEDS: sodium chloride 0.9% 1,000 ML 75 ML IV (05:07)
[2022-08-31 07:17] LABS: Glucose Point of Care 146 mg/dL (70-110)
--- NOTE | 2022-08-31 08:07 | P.PN_ITS ---
Subjective Subjective: Barb is more alert this morning. She denies any specific complaints. She failed a bedside swallowing, with thin liquids. From my understanding she had progressed to mechanical soft but maybe was still doing thick liquids at the nursing facility. Medications: Reviewed: Yes Vitals/I&O/Wt Last Vital Signs Temp 98.5 F 08/31/22 07:33 Pulse 78 08/31/22 07:33 Resp 18 08/31/22 07:33 BP 134/68 08/31/22 07:33 Pulse Ox 90 08/31/22 07:33 O2 Del Method Nasal Cannula 08/31/22 07:33 O2 Flow Rate 3 08/31/22 04:34 FiO2 3 08/30/22 14:30 08/30/22 08/31/22 08/31/22 22:59 06:59 14:59 Intake Total 150 / 150 912.5 / 1062.5 Output Total 600 / 600 Balance 150 / 150 312.5 / 462.5 Physical Exam Narrative: General exam is a white female, soft speech but much more animated from yesterday Neck is supple no lymphadenopathy or thyromegaly Cardiovascular tachycardic, no murmur Lungs clear no wheezing or crackles Abdomen is soft, positive bowel sounds. exam P[place] noted Extremities no cyanosis or clubbing. Trace edema bilaterally. Erythema left leg resolved Neuro: Globally weak. No focal weakness Data 08/30/22 09:14 08/30/22 09:14 Micro: Microbiology 08/30/22 09:49 Blood Culture - Preliminary Blood SPECIMEN COLLECTED 08/30/22 10:12 Blood Culture - Preliminary Blood SPECIMEN COLLECTED A&P Assessment and plan (1) Encephalopathy acute: Patient presents with acute encephalopathy. This is likely secondary to UTI Stroke thought unlikely Significantly improving Speech therapy to see today to start diet (2) UTI (urinary tract infection): Patient presents with significant UTI Catheter has been placed Rocephin has been given. Continue IV every 24 hours Urine and blood cultures have been drawn and are pending Appears to be improving. Fever defervesced seen. Reduce IV fluid rate CBC, BMP tomorrow (3) Hypoxia: Left lower lobe atelectasis noted on x-ray Wean oxygen as tolerated This may be secondary to significant infection (4) Lower extremity edema: She has some lower extremity edema, with some with erythema on the left. Duplex negative Erythema resolved (5) Type 2 diabetes mellitus: Initiate sliding scale insulin When diet is started, consistent carb diet. Plan History of supranuclear palsy, with significant weakness, wheelchair-bound at nursing facility Multiple other medical problems as outlined in past medical history Allow natural Lovenox for DVT prophylaxis Attestations Medical Necessity Statement*: Is continued hospitalization for IV antibiotics secondary to complicated UTI, l ikely discharge tomorrow Diagnoses Encephalopathy acute G93.40 UTI (urinary tract infection) N39.0 Hypoxia R09.02 Lower extremity edema R60.0 Type 2 diabetes mellitus E11.9 Time Spent (min) 21
[2022-08-31 08:56] LABS: Basophils # 0.1 10^3/uL (0.0-0.1); Basophils % 0.6 %; Eosinophils % 0.5 %; Hematocrit 32.3 % (37.0-47.0); Hemoglobin 9.6 g/dL (11.5-15.3); Lymphocytes # 1.9 10^3/uL (0.8-4.8); Lymphocytes % 24.1 %; Mean Corpuscular HGB Conc 29.7 g/dL (30.0-36.0); Mean Corpuscular Hemoglobin 26.6 pg (28.0-34.0); Mean Corpuscular Volume 89.5 fl (81-99); Mean Platelet Volume 10.3 fL (7.4-10.4); Monocytes # 0.7 10^3/uL (0.2-0.9); Monocytes % 9.3 %; Neutrophils # 5.18 10^3/uL (1.8-7.7); Nucleated Red Blood Cells % 0 %; Platelet Count 163 10^3/cmm (130-400); Red Blood Count 3.61 10^6/uL (4.1-5.3); Red Cell Distribution Width 14.7 % (12.1-15.1)
[2022-08-31 09:21] LABS: Alanine Aminotransferase 7 U/L (0-33); Albumin Level 3.1 g/dL (3.5-5.2); Alkaline Phosphatase 72 U/L (35-105); Anion Gap 13.4 (5-19); Aspartate Amino Transferase 10 U/L (0-32); Blood Urea Nitrogen 17 mg/dL (8-23); Calcium 8.4 mg/dL (8.5-10.5); Carbon Dioxide 25 mmol/L (22-29); Chloride 108 mmol/L (98-107); Globulin 2.3 g/dL (1.3-4.6); Glucose 134 mg/dL (65-115); Magnesium 1.9 mg/dL (1.7-2.3); Osmolality Calculated 298 mOsm/kg (285-295); Potassium 4.4 mmol/L (3.5-5.1); Sodium 142 mmol/L (136-145); Total Bilirubin 0.3 mg/dL (0.15-1.2); Total Protein 5.4 g/dL (6.6-8.7)
[2022-08-31] MEDS: aspirin 81 mg Chew Tablet PO (09:41)
[2022-08-31] MEDS: cetirizine 10 mg Tablet 2.5 MG PO (09:41)
[2022-08-31] MEDS: pantoprazole 40 mg SDV IVP (09:42)
[2022-08-31] MEDS: carbidopa-levodopa ER 50-200mg Tablet 0.5 EACH PO ×2 (09:45→15:13)
[2022-08-31 11:12] LABS: Glucose Point of Care 118 mg/dL (70-110)
[2022-08-31] MEDS: cefTRIAXone 1,000 MG in sodium chloride 0.9% (plus) 50 ML 100 MG IV (15:13)
[2022-08-31 16:38] LABS: Glucose Point of Care 106 mg/dL (70-110)
[2022-08-31] MEDS: enoxaparin 40 mg/0.4 mL Syringe SUBCUT (18:22)
[2022-08-31 21:00] LABS: Glucose Point of Care 202 mg/dL (70-110)
[2022-08-31] MEDS: ropinirole 0.25 mg Tablet PO (21:37)
[2022-08-31] MEDS: insulin lispro 100 unit/1 mL SUBCUT (21:37)
[2022-09-01] VITALS: BP 125/64; PULSE 74; RESP 16; TEMP 37; O2SAT 88
[2022-09-01] MEDS: sodium chloride 0.9% 1,000 ML 50 ML IV (00:19)
[2022-09-01 04:00] VITALS: BP 112/55; PULSE 75; RESP 14; TEMP 36.7; O2SAT 95
[2022-09-01 05:53] LABS: Basophils # 0.1 10^3/uL (0.0-0.1); Basophils % 1.3 %; Eosinophils # 0.2 10^3/uL (0.0-0.8); Eosinophils % 4.1 %; Hematocrit 31.2 % (37.0-47.0); Hemoglobin 9.1 g/dL (11.5-15.3); Lymphocytes # 1.8 10^3/uL (0.8-4.8); Lymphocytes % 32.4 %; Mean Corpuscular HGB Conc 29.2 g/dL (30.0-36.0); Mean Corpuscular Hemoglobin 26.5 pg (28.0-34.0); Mean Corpuscular Volume 90.7 fl (81-99); Mean Platelet Volume 10.7 fL (7.4-10.4); Monocytes # 0.7 10^3/uL (0.2-0.9); Monocytes % 13.1 %; Neutrophils # 2.71 10^3/uL (1.8-7.7); Neutrophils % 48.7 %; Nucleated Red Blood Cells % 0 %; Platelet Count 163 10^3/cmm (130-400); Red Blood Count 3.44 10^6/uL (4.1-5.3); Red Cell Distribution Width 14.5 % (12.1-15.1); White Blood Count 5.6 10^3/uL (4.0-10.0)
[2022-09-01 06:18] LABS: Anion Gap 15.4 (5-19); Blood Urea Nitrogen 15 mg/dL (8-23); Calcium 8.3 mg/dL (8.5-10.5); Carbon Dioxide 24 mmol/L (22-29); Chloride 107 mmol/L (98-107); Glucose 96 mg/dL (65-115); Osmolality Calculated 295 mOsm/kg (285-295); Potassium 4.4 mmol/L (3.5-5.1); Sodium 142 mmol/L (136-145)
[2022-09-01 06:29] LABS: Glucose Point of Care 107 mg/dL (70-110)
[2022-09-01 08:00] VITALS: BP 148/71; PULSE 79; RESP 18; TEMP 36.8; O2SAT 90; O2SAT 95
[2022-09-01] MEDS: cetirizine 10 mg Tablet 2.5 MG PO (09:08)
[2022-09-01] MEDS: carbidopa-levodopa ER 50-200mg Tablet 0.5 EACH PO ×2 (09:08→12:33)
[2022-09-01] MEDS: aspirin 81 mg Chew Tablet PO (09:09)
--- NOTE | 2022-09-01 09:56 | PM.DCS ---
Discharge Providers Date of Admission: 08/30/22 15:43 Date of Discharge: September 01, 2022 Attending Provider at Admission: Raheem Yanes MD Attending Provider at Discharge: Raheem Yanes MD Primary Care Provider: Wesly Santiago DO Diagnoses at Discharge Discharge Diagnosis (1) Encephalopathy acute: Status: Acute (2) UTI (urinary tract infection): Status: Acute (3) Hypoxia: Status: Acute (4) Lower extremity edema: Status: Acute (5) Type 2 diabetes mellitus: Status: Acute Reason for Visit Reason for Visit: [facility] Hospital Course Hospital Course Barb is an 81-year-old white female who presented from the [facility] with history of fever, shortness of breath, and acute encephalopathy. There was initial concern she had a stroke, but on further evaluation there was no clinical or CT evidence of such. She was determined to have a urinary tract infection. Rocephin was given and she was followed closely. With this she improved rapidly, and by the time of discharge she was greater than 48 hours without a fever. Blood cultures have grown corynebacterium only in 2 bottles which was thought to be contaminant. Urine culture was growing gram-negative anyi. With significant improvement it was thought she could discharge back to the nursing facility. She will discharge on 2 L of oxygen to be weaned. She will finish up 10 days of cefdinir. Nursing facility is instructed to call for culture results tomorrow. I discussed this with the patient, in detail and attempted to call family members as well to fill them out on hospital course. Unfortunately after several attempts I was not able to contact family. Nursing will continue to try prior to discharge. Physical Exam Narrative: General exam no distress, alert and oriented Neck is supple Cardiovascular regular rate and rhythm, no murmur Lungs clear Abdomen is soft, positive bowel sounds Extremities no cyanosis clubbing or edema Discharge Data Studies Completed and Pending Completed Studies During Hospitalization Category Date Time Status CT head thrombolytic [id number] Stat Cat Scan 08/30/22 09:16 Completed XR chest 1V portable [id number] Stat Exams 08/30/22 10:18 [place] [id number] Routine Ultrasound 08/30/22 12:27 Completed Pending at discharge Category Date Time Status Blood Culture Stat Lab 08/30/22 09:49 Results Urine Culture Stat Lab 08/30/22 10:00 Results Radiology Impressions Head CT 08/30/22 09:16 IMPRESSION: 1. No acute intracranial abnormality. 2. Chronic sinusitis completely opacifying the maxillary and sphenoid sinuses with 2.5 cm expansile mass within the right posterior nasal fossa as discussed above. Continued follow-up advised. ASSESSMENT: ASPECTS (Tracey Stroke Program Early CT Score) is 10. Chest X-Ray 08/30/22 10:18 IMPRESSION: Minor atelectatic changes left lung base otherwise negative exam.. Laboratory Results WBC 5.6 10^3/uL (4.0-10.0) 09/01/22 05:30 RBC 3.44 10^6/uL (4.1-5.3) L 09/01/22 05:30 Hgb 9.1 g/dL (11.5-15.3) L 09/01/22 05:30 Hct 31.2 % (37.0-47.0) L 09/01/22 05:30 MCV 90.7 fl (81-99) 09/01/22 05:30 MCH 26.5 pg (28.0-34.0) L 09/01/22 05:30 MCHC 29.2 g/dL (30.0-36.0) L 09/01/22 05:30 RDW 14.5 % (12.1-15.1) 09/01/22 05:30 Plt Count 163 10^3/cmm (130-400) 09/01/22 05:30 MPV 10.7 fL (7.4-10.4) H 09/01/22 05:30 Neut % (Auto) 48.7 % 09/01/22 05:30 Lymph % (Auto) 32.4 % 09/01/22 05:30 [place] % (Auto) 13.1 % 09/01/22 05:30 Eos % (Auto) 4.1 % 09/01/22 05:30 Baso % (Auto) 1.3 % 09/01/22 05:30 Neut # (Auto) 2.71 10^3/uL (1.8-7.7) 09/01/22 05:30 Lymph # (Auto) 1.8 10^3/uL (0.8-4.8) 09/01/22 05:30 [place] # (Auto) 0.7 10^3/uL (0.2-0.9) 09/01/22 05:30 Eos # (Auto) 0.2 10^3/uL (0.0-0.8) 09/01/22 05:30 Baso # (Auto) 0.1 10^3/uL (0.0-0.1) 09/01/22 05:30 Nucleated RBC % (auto) 0 % 09/01/22 05:30 Nucleated RBCs # 0.0 /100WBC 09/01/22 05:30 PT 12.50 SECONDS (12.1-14.9) 08/30/22 09:14 INR 0.91 (0.8-1.2) 08/30/22 09:14 APTT 25.6 SECONDS (23.9-36.7) 08/30/22 09:14 Specimen Type Arterial 08/30/22 09:56 Sample Site Radial, left 08/30/22 09:56 ABG pH 7.41 (7.35-7.45) 08/30/22 09:56 ABG pCO2 40.9 mmHg (35-45) 08/30/22 09:56 ABG pO2 61.5 mmHg (80.0-100.0) L 08/30/22 09:56 ABG HCO3 25.8 mmol/L (22-26) 08/30/22 09:56 ABG O2 Saturation 92.7 08/30/22 09:56 ABG Base Excess 1.0 mmol/L (-2.0-2.0) 08/30/22 09:56 Jason Test Pos 08/30/22 09:56 A-a O2 Gradient 5.0 mmHg (5-10) 08/30/22 09:56 Hematocrit 38.4 % (37-47) 08/30/22 09:56 Hgb O2 Saturation 90.8 % (95-100) L 08/30/22 09:56 Carboxyhemoglobin 1.6 %THgb (0.4-20.1) 08/30/22 09:56 Methemoglobin 0.5 % (0.4-1.5) 08/30/22 09:56 Total Hemoglobin 12.5 g/dL (12-16) 08/30/22 09:56 Sodium 143.0 mmol/L (131-143) 08/30/22 09:56 Potassium 4.2 mmol/L (3.5-5.0) 08/30/22 09:56 Glucose 190.0 mg/dL (70-115) H 08/30/22 09:56 Ionized Calcium 1.3 mmol/L (1.1-1.4) 08/30/22 09:56 O2 Delivery Device Nc 08/30/22 09:56 O2 Liters/Min 4.0 % 08/30/22 09:56 Fermentation Engineer ID [place]ci 08/30/22 09:56 Sodium 142 mmol/L (136-145) 09/01/22 05:30 Potassium 4.4 mmol/L (3.5-5.1) 09/01/22 05:30 Chloride 107 mmol/L (98-107) 09/01/22 05:30 Carbon Dioxide 24 mmol/L (22-29) 09/01/22 05:30 Anion Gap 15.4 (5-19) 09/01/22 05:30 BUN 15 mg/dL (8-23) 09/01/22 05:30 Creatinine 1.0 mg/dL (0.5-0.9) H 09/01/22 05:30 GFR Calculation Not Reportable 09/01/22 05:30 Glucose 96 mg/dL (65-115) 09/01/22 05:30 POC Glucose 107 mg/dL (70-110) 09/01/22 06:23 Calculated Osmolality 295 mOsm/kg (285-295) 09/01/22 05:30 Lactic Acid 2.1 mmol/L (0.5-2.2) 08/30/22 10:12 Lactic Acid (Sepsis) 1.0 mmol/L (0.5-2.2) 08/30/22 13:15 Calcium 8.3 mg/dL (8.5-10.5) L 09/01/22 05:30 Magnesium 1.9 mg/dL (1.7-2.3) 08/31/22 08:45 Total Bilirubin 0.3 mg/dL (0.15-1.2) 08/31/22 08:45 AST 10 U/L (0-32) 08/31/22 08:45 ALT 7 U/L (0-33) 08/31/22 08:45 Alkaline Phosphatase 72 U/L (35-105) 08/31/22 08:45 Creatine Kinase 26 U/L (26-192) 08/30/22 09:14 Total Protein 5.4 g/dL (6.6-8.7) L D 08/31/22 08:45 Albumin 3.1 g/dL (3.5-5.2) L 08/31/22 08:45 Globulin 2.3 g/dL (1.3-4.6) 08/31/22 08:45 Urine Color Yellow (Yellow) 08/30/22 10:00 Urine Appearance Cloudy (CLEAR) A 08/30/22 10:00 Urine pH 5 (5-7) 08/30/22 10:00 Ur Specific [place] 1.020 (1.005-1.030) 08/30/22 10:00 Urine Protein 2+ (Negative) H 08/30/22 10:00 Urine Glucose (UA) Norm (Normal) 08/30/22 10:00 Urine Ketones Negative (Negative) 08/30/22 10:00 Urine Blood 2+ (Negative) H 08/30/22 10:00 Urine Nitrate Positive (Negative) H 08/30/22 10:00 Urine Bilirubin Neg (Negative) 08/30/22 10:00 Urine Urobilinogen Norm mg/dL (Negative) 08/30/22 10:00 Ur Leukocyte Esterase 2+ (Negative) H 08/30/22 10:00 Urine RBC 5-10 /hpf (0-2) H 08/30/22 10:00 Urine WBC >100 /hpf (0-5) H 08/30/22 10:00 Ur Squamous Epith Cells 5-10 /hpf (0-5) H 08/30/22 10:00 Amorphous Sediment Not Reportable 08/30/22 10:00 Urine Bacteria 4+ /hpf (NONE) H 08/30/22 10:00 Urine Mucus 2+ /hpf 08/30/22 10:00 Urine Opiates Screen Negative ng/mL (Negative) 08/30/22 10:00 Ur Barbiturates Screen Negative ng/mL (Negative) 08/30/22 10:00 Ur Phencyclidine Scrn Negative ng/mL (Negative) 08/30/22 10:00 Ur Amphetamines Screen Negative ng/mL (Negative) 08/30/22 10:00 U Benzodiazepines Scrn Negative ng/mL (Negative) 08/30/22 10:00 Urine Cocaine Screen Negative ng/mL (Negative) 08/30/22 10:00 U Marijuana (THC) Screen Negative ng/mL (Negative) 08/30/22 10:00 Vitals Last Vital Signs Temp 98.3 F 09/01/22 08:00 Pulse 79 09/01/22 08:00 Resp 18 09/01/22 08:00 BP 148/71 09/01/22 08:00 Pulse Ox 95 09/01/22 08:00 O2 Del Method Nasal Cannula 09/01/22 08:00 O2 Flow Rate 2.5 09/01/22 08:00 FiO2 3 08/30/22 14:30 Discharge Plan Discharge Patient Disposition: Home Condition: Stable Prescriptions: New cefdinir 300 mg capsule 300 mg PO BID 10 Days Qty: 20 0RF Continued carbidopa-levodopa 25-100 mg tablet extended release See Rx Instructions PO BID Qty: 90 2RF Rx Instructions: 1 tab in the AM and at noon calcium carbonate [Tums] 200 mg calcium (500 mg) tablet,chewable 200 mg PO Q6H PRN (Reason: Stomach Upset) guaifenesin [Mucinex] 600 mg tablet extended release 12hr 600 mg PO BID PRN (Reason: Congestion) fluticasone propionate [Flonase Allergy Relief] 50 mcg/actuation spray,suspension 2 spray intranasal DAILY PRN (Reason: allergies) Rx Instructions: administer into each nostril Prolia 60 mg/mL syringe 60 mg SUBCUT Q180D cetirizine 5 mg tablet 2.5 mg PO DAILY promethazine-DM 6.25-15 mg/5 mL Syrup 5 ml PO Q8H PRN (Reason: Cough) albuterol sulfate 2.5 mg /3 mL (0.083 %) Solution For Nebulization 2.5 mg INHALATION TID PRN (Reason: Shortness Of Breath) acetaminophen 500 mg Tablet 500 mg PO BID famotidine [Pepcid] 20 mg Tablet 20 mg PO DAILY bisacodyl [Dulcolax (bisacodyl)] 10 mg Suppository 10 mg [place] DAILY PRN (Reason: Constipation) aspirin 81 mg Tablet,Chewable 81 mg PO DAILY Cough Drops 5 mg Lozenge 5 mg MUCOUS MEMBRANE Q4H red yeast rice 600 mg Capsule 600 mg PO DAILY Rx Instructions: give with meal/snack diclofenac sodium [Voltaren Arthritis Pain] 1 % Gel 2 g TOPICAL BEDTIME Rx Instructions: apply to single elbow, wrist or hand; for hand includes palm/fingers/back of hand PreserVision AREDS 2,148 mcg-113 mg-45 mg-17.4mg Tablet 1 tab PO DAILY Rx Instructions: administer with AM and PM meals Systane Balance 0.6 % Drops 1 drp OPHTHALMIC (EYE) BID insulin degludec [Tresiba U-100 Insulin] 100 unit/mL Solution 15 unit SUBCUT BEDTIME Milk of Magnesia 400 mg/5 mL Suspension 30 ml PO DAILY PRN (Reason: Constipation) ropinirole 0.25 mg Tablet 0.25 mg PO BEDTIME Rx Instructions: FOR RESTLESS LEGS Fleet Enema 19-7 gram/118 mL Enema 118 ml [place] PRN PRN (Reason: Constipation) Humalog Tempo Pen(U-100)Insuln 100 unit/mL Insulin Pen 5 unit SUBCUT TID Rx Instructions: WITH EVERY MEAL FOR DIABETES Discharge Orders: Discharge Order (Routine); Ordered 09/01/22 Ordered By: Raheem Yanes Referrals: Wesly Santiago DO [Primary Care Provider] - 4-7 days Discharge Diet: Usual diet Discharge Activity: Increase activity as tolerated Patient Instructions: Opioid Safety Activity Restrictions/Additional Instructions: 2 L of oxygen per nasal cannula, titrate for sat greater than or equal to 90% Call for urine culture results tomorrow Take medication as prescribed Return for concerns Discharge Attestations Time Spent in Discharge Care*: greater than 30 min Quality Metrics Clinical Quality Measures [ No reported AMI, CVA or VTE this stay] Coding Level of Care Code 21783 Total time (in minutes) for Discharge: 39 Diagnoses Encephalopathy acute G93.40 UTI (urinary tract infection) N39.0 Hypoxia R09.02 Lower extremity edema R60.0 Type 2 diabetes mellitus E11.9
[2022-09-01] MEDS: pantoprazole 40 mg SDV IVP (10:14)
[2022-09-01] MEDS: cefTRIAXone 1,000 MG in sodium chloride 0.9% (plus) 50 ML 100 MG IV (10:57)
[2022-09-01 11:35] LABS: Glucose Point of Care 170 mg/dL (70-110)
[2022-09-01 12:00] VITALS: BP 144/73; PULSE 85; RESP 16; TEMP 36.6; O2SAT 95
[2022-09-01] MEDS: insulin lispro 100 unit/1 mL SUBCUT (12:32)
[2022-09-01 13:15] LABS: SARS Covid-2 Antigen negative (Negative)
--- NOTE | 2022-09-01 13:48 | PC.NURSE ---
report called to [facility], IV'S removed, berrios catheter removed at 1320. pt tolerated well.
[2022-09-01 14:34] VITALS: BP 144/73; PULSE 85; RESP 16; TEMP 36.6; O2SAT 95
== END 2022-09-01 13:45 | disposition skilled nursing facility (03) | DRG 690 ==
LOC: ER 11:22 → MEDSURG 17:35
PROVIDERS: Admitting Provider Internal Medicine; Emergency Provider Family Medicine; PCP Internal Medicine; Visit Provider Internal Medicine
DX: N39.0 Urinary tract infection, site not specified (principal); G93.49 Other encephalopathy; B96.20 Unspecified Escherichia coli [E. coli] as the cause of diseases classified elsewhere; Z79.82 Long term (current) use of aspirin; Z79.4 Long term (current) use of insulin; G20 Parkinson's disease; Z96.653 Presence of artificial knee joint, bilateral; Z86.73 Personal history of transient ischemic attack (TIA), and cerebral infarction without residual deficits; G25.81 Restless legs syndrome; J44.9 Chronic obstructive pulmonary disease, unspecified; E11.9 Type 2 diabetes mellitus without complications; K21.9 Gastro-esophageal reflux disease without esophagitis; I10 Essential (primary) hypertension; Z99.3 Dependence on wheelchair; Z66 Do not resuscitate
CPT/HCPCS: 11721; 36415; 36416; 36600; 70450; 71045; 80048; 80051; 80053; 80306; 81001; 82330; 82550; 82805; 82962; 83605; 83735; 85025; 85610; 85730; 87040; 87077; 87086; 87150; 87186; 87205; 87426; 92523; 92610; 93005; 93971; 96372; 96374; 96375; 99285; C9113; J0131; J0696; J1650; J1815; J7030

== ENCOUNTER → 2022-11-07 09:36 | Outpatient (BNVA) | payer MEDICARE, OTHER, SELFPAY | PROVIDERS: PCP Internal Medicine; Visit Provider Podiatrist Foot & Ankle Surgery | DX: B35.1 Tinea unguium (principal); M25.472 Effusion, left ankle; M25.471 Effusion, right ankle; E11.22 Type 2 diabetes mellitus with diabetic chronic kidney disease; N18.9 Chronic kidney disease, unspecified; Z79.4 Long term (current) use of insulin | CPT/HCPCS: 11721 ==

== ENCOUNTER → 2023-01-09 08:54 | Outpatient (BNVA) | payer MEDICARE, OTHER, SELFPAY | PROVIDERS: PCP Internal Medicine; Visit Provider Podiatrist Foot & Ankle Surgery | DX: B35.1 Tinea unguium (principal); M25.472 Effusion, left ankle; M25.471 Effusion, right ankle; N18.9 Chronic kidney disease, unspecified; E11.22 Type 2 diabetes mellitus with diabetic chronic kidney disease; Z79.4 Long term (current) use of insulin | CPT/HCPCS: 11721 ==

== ENCOUNTER 2023-02-28 10:26 | Outpatient (CLI) | payer MEDICARE, OTHER, SELFPAY ==
--- NOTE | 2023-02-28 10:33 | CT_ITS ---
WS: [id number] CT SINUSES TECHNIQUE: Noncontrast CT of the paranasal sinuses with coronal and sagittal reformatted images. CLINICAL INFORMATION: DYSPHONIA/OTHER CHRONIC SINUSITIS COMPARISON: CT 02/14/2022 DLP: 349.[address] scans at [facility] use at least one of these dose optimization techniques: automated e xposure control; mA and/or kV adjustment per patient size (includes targeted exams where dose is matc hed to clinical indication); or iterative reconstruction. FINDINGS: Slightly improved aeration of the LEFT maxillary sinus with partial opacification and inspi ssated secretions. Progressed complete opacification of the LEFT sphenoid sinus. Progressed complete opacification the RIGHT maxillary sinus. Otherwise no significant changes compared to previous. Stable expansile lesion involving the RIGHT posterior ethmoid air cell extending into the RIGHT maxil deborah infundibulum with peripheral margin of expanded bone. This is unchanged from previous. Involveme nt of the periorbital posterior ethmoid air cells with thinning of the lamina papyracea is stable. To day this measures approximately 2.8 x 2.0 x 2.5 cm most compatible with mucocele unchanged from previ ous. Complete opacification of the sphenoid sinuses with inspissated secretions. Opacification of the sphe noid sinus ostia bilaterally. Frontal sinuses are well aerated. Bilateral brynn bullosa. Mastoid air cells well aerated. Normal posterior nasopharynx. Normal parapharyngeal fat. Intracranial vascular c alcification. 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 IMPRESSION: 1. 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 2. Slightly improved aeration of the LEFT maxillary sinus with partial opacification and inspissated secretions. Progressed complete opacification of the LEFT sphenoid sinus and RIGHT maxillary sinus. 3. Otherwise no significant changes compared to previous.
== END 2023-02-28 10:27 | disposition home or self-care (01) ==
LOC: RAD 10:26
PROVIDERS: PCP Internal Medicine; Visit Provider Specialist
DX: R49.0 Dysphonia (principal); J32.8 Other chronic sinusitis; J34.1 Cyst and mucocele of nose and nasal sinus
CPT/HCPCS: 70486

== ENCOUNTER → 2023-03-07 11:48 | Outpatient (BNVA) | payer MEDICARE, OTHER, SELFPAY | PROVIDERS: Visit Provider Specialist | DX: R29.90 Unspecified symptoms and signs involving the nervous system (principal); G23.1 Progressive supranuclear ophthalmoplegia [Steele-Richardson-Olszewski] | CPT/HCPCS: 99213 ==

== ENCOUNTER → 2023-04-03 09:43 | Outpatient (BNVA) | payer MEDICARE, OTHER, SELFPAY | PROVIDERS: PCP Internal Medicine; Visit Provider Podiatrist Foot & Ankle Surgery | DX: B35.1 Tinea unguium (principal); M25.472 Effusion, left ankle; M25.471 Effusion, right ankle; N18.9 Chronic kidney disease, unspecified; E11.29 Type 2 diabetes mellitus with other diabetic kidney complication; Z79.4 Long term (current) use of insulin | CPT/HCPCS: 11721 ==

== ENCOUNTER 2023-05-05 09:41 | Outpatient (CLI) | payer MEDICARE, OTHER, SELFPAY ==
--- NOTE | 2023-05-05 09:47 | FL_ITS ---
WS: [id number] Exam: FL barium swallow modifd [id number] Date/Time of Exam: 05/05/2023 10:17 AM Reason For Exam: Other dysphagia Fluoroscopy time: 5min [id number] minutes # of spot films: Modified barium swallow was performed in conjunction with the speech therapy service. The patient experienced significant aspiration when ingesting thin liquid and nectar consistency cody um foodstuffs. Penetration into the laryngeal inlet was identified with multiple barium consistency f oodstuffs. The patient ingested the barium tablet without difficulty or complication. Oral pharyngeal phase of swallowing was altered. IMPRESSION: 1. Aspiration identified with thin liquid and nectar consistency barium foodstuffs. 2. The patient experienced penetration into the laryngeal inlet when ingesting multiple barium consis tencies. A separate report with recommendations will follow from the speech therapy service.
== END 2023-05-05 09:42 | disposition home or self-care (01) ==
LOC: RAD 09:42
PROVIDERS: PCP Internal Medicine; Visit Provider Internal Medicine
DX: I69.391 Dysphagia following cerebral infarction (principal)
CPT/HCPCS: 74230; 92611

== ENCOUNTER → 2023-06-12 13:15 | Outpatient (BNVA) | payer MEDICARE, OTHER, SELFPAY | PROVIDERS: PCP Internal Medicine; Visit Provider Podiatrist Foot & Ankle Surgery | DX: L98.9 Disorder of the skin and subcutaneous tissue, unspecified (principal); B35.1 Tinea unguium; M25.472 Effusion, left ankle; M25.471 Effusion, right ankle; N18.9 Chronic kidney disease, unspecified; E11.29 Type 2 diabetes mellitus with other diabetic kidney complication; Z79.4 Long term (current) use of insulin | CPT/HCPCS: 11721; 99213 ==

== ENCOUNTER → 2023-06-20 10:57 | Outpatient (BNVA) | payer MEDICARE, OTHER, SELFPAY | PROVIDERS: PCP Internal Medicine; Visit Provider Nurse Practitioner Family | DX: D48.5 Neoplasm of uncertain behavior of skin (principal); D22.5 Melanocytic nevi of trunk; D22.39 Melanocytic nevi of other parts of face; D17.0 Benign lipomatous neoplasm of skin and subcutaneous tissue of head, face and neck; L82.1 Other seborrheic keratosis | CPT/HCPCS: 11102; 99203 ==

== ENCOUNTER → 2023-08-17 14:04 | Outpatient (BNVA) | payer MEDICARE, OTHER, SELFPAY | PROVIDERS: PCP Internal Medicine; Visit Provider Podiatrist Foot & Ankle Surgery | DX: B35.1 Tinea unguium (principal); M25.472 Effusion, left ankle; M25.471 Effusion, right ankle; N18.9 Chronic kidney disease, unspecified; L98.9 Disorder of the skin and subcutaneous tissue, unspecified; E11.29 Type 2 diabetes mellitus with other diabetic kidney complication; Z79.4 Long term (current) use of insulin | CPT/HCPCS: 11721 ==

== ENCOUNTER → 2023-08-29 15:30 | Outpatient (BNVA) | payer MEDICARE, OTHER, SELFPAY | PROVIDERS: PCP Internal Medicine; Visit Provider Specialist | DX: R29.90 Unspecified symptoms and signs involving the nervous system (principal); G23.1 Progressive supranuclear ophthalmoplegia [Steele-Richardson-Olszewski] | CPT/HCPCS: 99212; 99213 ==

== ENCOUNTER → 2023-10-24 14:02 | Outpatient (BNVA) | payer MEDICARE, OTHER, SELFPAY | PROVIDERS: PCP Internal Medicine; Visit Provider Podiatrist Foot & Ankle Surgery | DX: B35.1 Tinea unguium (principal); M25.472 Effusion, left ankle; M25.471 Effusion, right ankle; N18.9 Chronic kidney disease, unspecified; L98.9 Disorder of the skin and subcutaneous tissue, unspecified; E11.29 Type 2 diabetes mellitus with other diabetic kidney complication; Z79.4 Long term (current) use of insulin | CPT/HCPCS: 11721 ==

== ENCOUNTER → 2024-01-09 13:07 | Outpatient (BNVA) | payer MEDICARE, OTHER, SELFPAY | PROVIDERS: PCP Internal Medicine; Visit Provider Podiatrist Foot & Ankle Surgery | DX: B35.1 Tinea unguium (principal); M25.472 Effusion, left ankle; M25.471 Effusion, right ankle; N18.9 Chronic kidney disease, unspecified; L98.9 Disorder of the skin and subcutaneous tissue, unspecified; E11.29 Type 2 diabetes mellitus with other diabetic kidney complication; Z79.4 Long term (current) use of insulin | CPT/HCPCS: 11721 ==

== ENCOUNTER 2024-03-05 18:06 | Inpatient (IN) | payer MEDICARE, OTHER, SELFPAY ==
[2024-03-05] VITALS (15 sets, daily range): BP systolic 167–229; BP diastolic 69–109; PULSE 83–94; RESP 16–20; TEMP 37.4; O2SAT 87–95; BMI 31.1
--- NOTE | 2024-03-05 18:18 | XRR_ITS ---
PROCEDURE INFORMATION: Exam: XR Chest Exam date and time: 03/05/2024 6:37 PM Age: 83 years old Clinical indication: Other: Weakness TECHNIQUE: Imaging protocol: Radiologic exam of the chest. Views: 1 view. COMPARISON: CR XR chest 1V portable [id number] 08/30/2022 10:33 AM FINDINGS: Lungs: Stable right nodule right lung. No new focal airspace abnormality. Pleural spaces: Unremarkable. No pleural effusion. No pneumothorax. Heart/Mediastinum: Unremarkable. No cardiomegaly. Bones/joints: Unremarkable. XR/XR chest 1V portable [id number] IMPRESSION: As above.
--- NOTE | 2024-03-05 18:26 | CTR_ITS ---
PROCEDURE INFORMATION: Exam: CT Head Without Contrast Exam date and time: 03/05/2024 7:16 PM Age: 83 years old Clinical indication: Weakness, extremity; Bilateral TECHNIQUE: Imaging protocol: Computed tomography of the head without contrast. Radiation optimization: All CT scans at this facility use at least one of these dose optimization techniques: automated exposure control; mA and/or kV adjustment per patient size (includes targeted exams where dose is matched to clinical indication); or iterative reconstruction. COMPARISON: CT angio headneck* [id number] 03/05/2024 7:16 PM RADIATION DOSE METRICS: Total DLP (mGy-cm): 1141.56 FINDINGS: Brain: Age-related brain parenchymal atrophy. Areas of hypoattenuation in the periventricular and subcortical deep white matter likely on the basis of chronic microvascular ischemic changes. No acute intra cranial hemorrhage. No mass effect or midline shift. No definitive CT evidence of acute territorial infarction. Cerebral ventricles: Prominence of the lateral ventricular system likely on the basis of ex vacuo dilatation. Paranasal sinuses: Paranasal sinus mucosal thickening with near-complete opacification of the right maxillary and sphenoidal sinuses. Similar 2.5 cm expansile mass within the right posterior nasal fossa. Mastoid air cells: Visualized mastoid air cells are well aerated. Bones: Intact calvarium. Soft tissues: Unremarkable. CT/CT head wo con* [id number] IMPRESSION: No acute intracranial process. Chronic changes as above. There is a similar right posterior nasal fossa mass and diffuse paranasal sinus disease related to fungal sinusitis or inspissated secretions.
--- NOTE | 2024-03-05 18:28 | ED_ITS ---
HPI - Weakness 2 General: Chief complaint: Weakness Stated complaint: Lethargy Time Seen by Provider: 03/05/24 18:09 Source: patient and EMS Mode of arrival: EMS History of Present Illness: 83-year-old female is sent here from [facility] she had increased weakness cough congestion has been going on for 2 days her assisted living patient typically able to ambulate and do ADLs states over the last 2 days she has not been able to get out of bed patient is extremely weak here and also states she feels dehydrated she is answering my questions appropriately was not able to stand at this time. Associated symptoms: Denies chest pain, chills, easy bruising, fever(s), headache(s), nausea or vomiting Review of Systems 2 Const: Reports: fatigue and malaise; Denies: fever(s), chills, body aches or change in appetite ENMT: Denies: throat pain or dental pain Card: Denies: chest pain Resp: Reports: non-productive cough GI: Denies: abdominal pain, nausea, vomiting or diarrhea Musc: Denies: neck pain or back pain Skin/Breast: Denies: rash Neuro: Denies: headache(s) Psych: Denies: depression David/Lymph: Denies: easy bruising All/Imm: Denies: urticaria PFSH ED 2 PFSH: Medical History Hypertension GERD (gastroesophageal reflux disease) Chronic kidney disease COPD (chronic obstructive pulmonary disease) Progressive supranuclear palsy Type 2 diabetes mellitus Family History Other CAD (coronary artery disease) Social History Smoking and tobacco/nicotine status: unknown if used tobacco/nicotine Alcohol intake: never Substance/Drug Use: never Household members: other Housing: [facility] Physical Exam 2 Const: COMMON NORMALS: patient oriented x3 GENERAL APPEARANCE: lethargic ORIENTATION/CONSCIOUSNESS: Yes lethargic HENMT: COMMON NORMALS: normocephalic and atraumatic HEAD & SCALP: n ormocephalic and atraumatic Eye: COMMON NORMALS: Equal, round and reactive pupils present and EOMs intact bilaterally PUPIL: Yes Equal, round and reactive pupils present Neck/C-Spine: COMMON NORMALS: full ROM and supple Chest: COMMONS NORMALS: normal inspection of the chest and normal palpation of entire chest wall Resp: COMMON NORMALS: normal respiratory effort, No retractions, No use of accessory muscles and clear to auscultation bilaterally AUSCULTATION: clear to auscultation bilaterally Cardio: COMMON NORMALS: regular rate, regular rhythm and No murmurs present (Cardio) RATE: regular rate RHYTHM: regular rhythm GI: COMMON NORMALS: Normal to inspection, nondistended, normoactive bowel sounds present, Soft to palpation, non-tender and no masses PALPATION: Yes Soft to palpation Extremity: COMMON NORMALS: normal to inspection and full ROM Neuro: COMMON NORMALS: patient oriented x3, moves all extremities and no focal motor deficits SENSORIUM/ORIENTATION: Yes lethargic OTHER: weakness to bilateral ext Psych: COMMON NORMALS: mental status grossly normal, Normal thought process present and cooperative THOUGHT PROCESS: Normal thought process present Skin: COMMON NORMALS: no rashes or lesions noted and no wounds GENERAL SKIN EXAM: no rashes or lesions noted Course 2 Vital Signs: Vital signs: Vital Signs Temperature 99.3 F 03/05/24 18:07 Pulse Rate 87 03/05/24 20:14 Respiratory Rate 20 H 03/05/24 20:15 Blood Pressure 215/109 03/05/24 20:14 Pulse Oximetry 87 L 03/05/24 20:15 Oxygen Delivery Me thod Room Air 03/05/24 18:07 MDM - Weakness Medical Decision Making Patient presents here with generalized weakness patient has no acute deficits has been going on for 2 days she is not a lytic candidate CT CT angio or negative she does have a UTI spoke to hospitalist will admit for her weakness. Medical Records I reviewed the patient's medical records. Lab Data I reviewed the patient's lab results. 03/05/24 17:55 03/05/24 17:55 Radiology Impressions Chest X-Ray 03/05/24 18:18 IMPRESSION: As above. Head CT 03/05/24 18:26 IMPRESSION: No acute intracranial process. Chronic changes as above. There is a similar right posterior nasal fossa mass and diffuse paranasal sinus disease related to fungal sinusitis or inspissated secretions. Head/Neck CTA 03/05/24 18:56 IMPRESSION: No large vessel stenosis or occlusion. IMPRESSION: There appears to be reduced opacification of the origin of the right vertebral artery off the subclavian artery which is artifactual in nature given the degree of motion artifact at the thoracic inlet. Otherwise no occlusion or stenosis of the CT angio of the. REFERENCES: NASCET CRITERIA. The degree of stenosis in the cervical segment of the internal carotid artery is based on NASCET criteria. Normal is no stenosis. Mild is less than 50% stenosis. Moderate is 50-69% stenosis. Severe is 70% to 99% stenosis. Total occlusion is no detectable patent lumen. Laboratory Results WBC 5.59 10^3/uL (3.29-11.43) 03/05/24 17:55 RBC 4.56 10^6/uL (3.85-5.65) 03/05/24 17:55 Hgb 12.00 g/dL (11.27-16.99) 03/05/24 17:55 Hct 38.9 % (36-47) 03/05/24 17:55 MCV 85.3 fl (85-98) 03/05/24 17:55 MCH 26.3 pg (27-33) L 03/05/24 17:55 MCHC 30.8 g/dL (30-55) 03/05/24 17:55 RDW 13.7 % (12.1-15.1) 03/05/24 17:55 Plt Count 193 10^3/cmm (157-399) 03/05/24 17:55 MPV 9.8 fL (7.4-10.4) 03/05/24 17:55 Neut % (Auto) 58.7 % 03/05/24 17:55 Lymph % (Auto) 21.6 % 03/05/24 17:55 Hendry % (Auto) 14.7 % 03/05/24 17:55 Eos % (Auto) 3.2 % 03/05/24 17:55 Baso % (Auto) 1.1 % 03/05/24 17:55 Neut # (Auto) 3.28 10^3/uL (1.8-7.7) 03/05/24 17:55 Lymph # (Auto) 1.2 10^3/uL (0.8-4.8) 03/05/24 17:55 Hendry # (Auto) 0.8 10^3/uL (0.2-0.9) 03/05/24 17:55 Eos # (Auto) 0.2 10^3/uL (0.0-0.8) 03/05/24 17:55 Baso # (Auto) 0.1 10^3/uL (0.0-0.1) 03/05/24 17:55 Nucleated RBC % (auto) 0 % 03/05/24 17:55 Nucleated RBCs # 0.0 /100WBC 03/05/24 17:55 Sodium 140 mmol/L (136-145) 03/05/24 17:55 Potassium 3.9 mmol/L (3.5-5.1) 03/05/24 17:55 Chloride 103 mmol/L (98-107) 03/05/24 17:55 Carbon Dioxide 26 mmol/L (22-29) 03/05/24 17:55 Anion Gap 14.9 (5-19) 03/05/24 17:55 BUN 18 mg/dL (8-23) 03/05/24 17:55 Creatinine 0.9 mg/dL (0.5-0.9) 03/05/24 17:55 GFR Calculation Not Reportable 03/05/24 17:55 Glucose 107 mg/dL (65-115) 03/05/24 17:55 POC Glucose 85 mg/dL (70-110) 03/05/24 18:36 Calculated Osmolality 292 mOsm/kg (285-295) 03/05/24 17:55 Calcium 10.0 mg/dL (8.5-10.5) 03/05/24 17:55 Magnesium 1.9 mg/dL (1.7-2.3) 03/05/24 17:55 Total Bilirubin 0.3 mg/dL (0.15-1.2) 03/05/24 17:55 AST 11 U/L (0-32) 03/05/24 17:55 ALT < 5 U/L (0-33) 03/05/24 17:55 Alkaline Phosphatase 88 U/L (35-105) 03/05/24 17:55 Total Protein 7.0 g/dL (6.6-8.7) 03/05/24 17:55 Albumin 3.6 g/dL (3.5-5.2) 03/05/24 17:55 Globulin 3.4 g/dL (1.3-4.6) 03/05/24 17:55 TSH 1.82 uIU/mL (0.27-4.20) 03/05/24 17:55 Urine Color Yellow (Yellow) 03/05/24 19:35 Urine Appearance Turbid (CLEAR) A 03/05/24 19:35 Urine pH 7.5 (5-7) 03/05/24 19:35 Ur Specific [place] 1.014 (1.005-1.030) 03/05/24 19:35 Urine Protein 2+ (Negative) A 03/05/24 19:35 Urine Glucose (UA) Negative (Normal) 03/05/24 19:35 Urine Ketones Negative (Negative) 03/05/24 19:35 Urine Blood Negative (Negative) 03/05/24 19:35 Urine Nitrate Negative (Negative) 03/05/24 19:35 Urine Bilirubin Negative (Negative) 03/05/24 19:35 Urine Urobilinogen 0.2 mg/dL (Negative) 03/05/24 19:35 Ur Leukocyte Esterase 1+ (Negative) A 03/05/24 19:35 Urine RBC 0-2 /hpf (0-2) 03/05/24 19:35 Urine WBC 21-50 /hpf (0-5) H 03/05/24 19:35 Ur Squamous Epith Cells 11-20 /hpf (0-5) H 03/05/24 19:35 Amorphous Sediment Not Reportable 03/05/24 19:35 Urine Bacteria 4+ /hpf (NONE) H 03/05/24 19:35 Hyaline Casts 66.17 /lpf 03/05/24 19:35 Coronavirus (PCR) Negative (Negative) 03/05/24 18:37 Influenza A (PCR) Negative (Negative) 03/05/24 18:37 Influenza Type B (PCR) Negative (Negative) 03/05/24 18:37 RSV (PCR) Negative (Negative) 03/05/24 18:37 All radiology interpretation(s) finalized by discharge EKG Data EKG 1: I personally reviewed and interpreted this EKG as follows: EKG interpretation date: 03/05/24 EKG interpretation time: 18:10 Interpretation: nsr hr [address] or t wave abnormalities qrs 84 qtc 388 Discharge Plan Discharge Patient Disposition: Admitted As Inpatient Clinical Impression: Acute cystitis, Weakness Condition: Stable Prescriptions: No Action carbidopa-levodopa 25-100 mg tablet extended release See Rx Instructions PO BID Qty: 90 2RF Rx Instructions: 1 tab in the AM and at noon calcium carbonate [Tums] 200 mg calcium (500 mg) tablet,chewable 200 mg PO Q6H PRN (Reason: Stomach Upset) guaifenesin [Mucinex] 600 mg tablet extended release 12hr 600 mg PO BID PRN (Reason: Congestion) fluticasone propionate [Flonase Allergy Relief] 50 mcg/actuation spray,suspension 2 spray intranasal DAILY PRN (Reason: allergies) Rx Instructions: administer into each nostril Prolia 60 mg/mL syringe 60 mg SUBCUT Q180D cetirizine 5 mg tablet 2.5 mg PO DAILY (DME) Diabetic shoes See Rx Instructions .Route .MEDSUPPLY Qty: 1 0RF Rx Instructions: As directed by [employer] [facility] 3 x insoles promethazine-DM 6.25-15 mg/5 mL Syrup 5 ml PO Q8H PRN (Reason: Cough) albuterol sulfate 2.5 mg /3 mL (0.083 %) Solution For Nebulization 2.5 mg INHALATION TID PRN (Reason: Shortness Of Breath) acetaminophen 500 mg Tablet 500 mg PO BID famotidine [Pepcid] 20 mg Tablet 20 mg PO DAILY bisacodyl [Dulcolax (bisacodyl)] 10 mg Suppository 10 mg NJ DAILY PRN (Reason: Constipation) aspirin 81 mg Tablet,Chewable 81 mg PO DAILY Cough Drops 5 mg Lozenge 5 mg MUCOUS MEMBRANE Q4H red yeast rice 600 mg Capsule 600 mg PO DAILY Rx Instructions: give with meal/snack diclofenac sodium [Voltaren Arthritis Pain] 1 % Gel 2 g TOPICAL BEDTIME Rx Instructions: apply to single elbow, wrist or hand; for hand includes palm/fingers/back of hand PreserVision AREDS 2,148 mcg-113 mg-45 mg-17.4mg Tablet 1 tab PO DAILY Rx Instructions: administer with AM and PM meals Systane Balance 0.6 % Drops 1 drp OPHTHALMIC (EYE) BID insulin degludec [Tresiba U-100 Insulin] 100 unit/mL Solution 15 unit SUBCUT BEDTIME Milk of Magnesia 400 mg/5 mL Suspension 30 ml PO DAILY PRN (Reason: Constipation) ropinirole 0.25 mg Tablet 0.25 mg PO BEDTIME Rx Instructions: FOR RESTLESS LEGS Fleet Enema 19-7 gram/118 mL Enema 118 ml NJ PRN PRN (Reason: Constipation) Humalog Tempo Pen(U-100)Insuln 100 unit/mL Insulin Pen 5 unit SUBCUT TID Rx Instructions: WITH EVERY MEAL FOR DIABETES Referrals: Wesly Santiago DO [Primary Care Provider] - Coding Level of Care Code ED [place] Maker for Chg Fwd Related Data Home Medications Medication Instructions Recorded Confirmed calcium carbonate (Tums) 200 mg PO Q6H PRN Stomach Upset 11/09/21 01/09/24 denosumab 60 mg/mL subcutaneous 60 mg SUBCUT Q180D 11/09/21 01/09/24 syringe (Prolia) fluticasone propionate 50 2 spray intranasal DAILY PRN 11/09/21 01/09/24 mcg/actuation nasal allergies spray,suspension (Flonase Allergy Relief) guaifenesin 600 mg tablet, 600 mg PO BID PRN Congestion 11/09/21 01/09/24 extended release 12 hr (Mucinex) cetirizine 5 mg tablet 2.5 mg PO DAILY 03/01/22 01/09/24 acetaminophen 500 mg tablet 500 mg PO BID 06/12/22 01/09/24 albuterol sulfate 2.5 mg/3 mL 2.5 mg inhalation TID PRN 06/12/22 01/09/24 (0.083 %) solution for nebulization Shortness Of Breath aspirin 81 mg chewable tablet 81 mg PO DAILY 06/12/22 01/09/24 bisacodyl 10 mg rectal suppository 10 mg NJ DAILY PRN Constipation 06/12/22 01/09/24 (Dulcolax (bisacodyl)) diclofenac sodium 1 % topical gel 2 g topical BEDTIME 06/12/22 01/09/24 (Voltaren Arthritis Pain) famotidine 20 mg tablet (Pepcid) 20 mg PO DAILY 06/12/22 01/09/24 insulin degludec 100 unit/mL 15 unit SUBCUT BEDTIME 06/12/22 01/09/24 subcutaneous solution (Tresiba U-100 Insulin) menthol 5 mg lozenges (Cough Drops) 5 mg mucous membrane Q4H 06/12/22 01/09/24 promethazine-DM 6.25 mg-15 mg/5 mL 5 ml PO Q8H PRN Cough 06/12/22 01/09/24 oral syrup propylene glycol 0.6 % eye drops 1 drp ophthalmic (eye) BID 06/12/22 01/09/24 (Systane Balance) red yeast rice 600 mg capsule 600 mg PO DAILY 06/12/22 01/09/24 vitamins A,C,X-refa-xyrmjo 2,148 1 tab PO DAILY 06/12/22 01/09/24 mcg-113 mg-45 mg-17.4 mg tablet (PreserVision AREDS) insulin lispro 100 unit/mL 5 unit SUBCUT TID 08/30/22 01/09/24 subcutaneous pen (Humalog Tempo Pen (U-100) Insulin) magnesium hydroxide 400 mg/5 mL 30 ml PO DAILY PRN Constipation 08/30/22 01/09/24 oral suspension (Milk of Magnesia) ropinirole 0.25 mg tablet 0.25 mg PO BEDTIME 08/30/22 01/09/24 sodium phosphates 19 gram-7 118 ml NJ PRN PRN Constipation 08/30/22 01/09/24 gram/118 mL enema (Fleet Enema) Previous Rx's Medication Instructions Recorded carbidopa ER 25 mg-levodopa 100 mg See Rx Instructions PO BID #90 tabs 06/02/22 tablet,extended release Diabetic shoes #1 ea 01/09/24 Allergies Allergy/AdvReac Type Severity Reaction Status Date / Time adhesive tape Allergy Mild Rash Verified 01/09/24 13:20 Sulfa (Sulfonamide Allergy Mild Rash Verified 01/09/24 13:20 Antibiotics) gabapentin AdvReac floats on Verified 01/09/24 13:20 the ceiling hydrocodone AdvReac Floats on Verified 01/09/24 13:20 the ceiling Penicillins AdvReac Makes her Verified 01/09/24 13:20 sleep
[2024-03-05 18:31] LABS: Basophils # 0.1 10^3/uL (0.0-0.1); Basophils % 1.1 %; Eosinophils # 0.2 10^3/uL (0.0-0.8); Eosinophils % 3.2 %; Hematocrit 38.9 % (36-47); Lymphocytes # 1.2 10^3/uL (0.8-4.8); Lymphocytes % 21.6 %; Mean Corpuscular HGB Conc 30.8 g/dL (30-55); Mean Corpuscular Hemoglobin 26.3 pg (27-33); Mean Corpuscular Volume 85.3 fl (85-98); Mean Platelet Volume 9.8 fL (7.4-10.4); Monocytes # 0.8 10^3/uL (0.2-0.9); Monocytes % 14.7 %; Neutrophils # 3.28 10^3/uL (1.8-7.7); Neutrophils % 58.7 %; Nucleated Red Blood Cells % 0 %; Platelet Count 193 10^3/cmm (157-399); Red Blood Count 4.56 10^6/uL (3.85-5.65); Red Cell Distribution Width 13.7 % (12.1-15.1); White Blood Count 5.59 10^3/uL (3.29-11.43)
[2024-03-05 18:38] LABS: Glucose Point of Care 85 mg/dL (70-110)
--- NOTE | 2024-03-05 18:41 | PC.NURSE ---
THIS NURSE SPOKE TO SHELTER STAFF, SEJAL, REGARDING PT COMPLAINT. SEJAL TOLD THIS NURSE THAT PT GOT UP FOR DINNER, AND WAS NOT ACTING HERSELF. PT STATED SHE JUST DID NOT FEEL RIGHT. SHELTER STAFF TOOK PT BLOOD PRESSURE AND IT WAS 210/140. PT WAS ACTING TIRED. SHELTER STAFF UNSURE OF LAST KNOWN NORMAL. THIS NURSE STATED SHE WAS NOT LIKE THIS LAST NIGHT WHEN I WAS HERE. SHELTER STAFF STATED THAT PT IS SOFT SPOKEN WELL. DR. YOUNG NOTIFIED.
--- NOTE | 2024-03-05 18:56 | CTR_ITS ---
PROCEDURE INFORMATION: Exam: CTA Head With Contrast, Arteriography Exam date and time: 03/05/2024 7:16 PM Age: 83 years old Clinical indication: Speech disturbance; Slurred speech; Additional info: Weakness TECHNIQUE: Imaging protocol: Computed tomographic angiography of the head with contrast. Exam focused on the arteries. 3D rendering (Not supervised by radiologist): MIP and/or 3D reconstructed images were created by the technologist. Radiation optimization: All CT scans at this facility use at least one of these dose optimization techniques: automated exposure control; mA and/or kV adjustment per patient size (includes targeted exams where dose is matched to clinical indication); or iterative reconstruction. Contrast material: OMNIPAQUE 350; Contrast volume: 100 ml; Contrast route: INTRAVENOUS (IV); COMPARISON: CT head wo con* [id number] 03/05/2024 7:16 PM RADIATION DOSE METRICS: Total DLP (mGy-cm): 398.4 FINDINGS: ANTERIOR CIRCULATION: Right internal carotid artery: Intracranial segment is patent with no significant stenosis. No aneurysm. Right middle cerebral artery: No occlusion or significant stenosis. No aneurysm. Right anterior cerebral artery: No occlusion or significant stenosis. No aneurysm. Left internal carotid artery: Intracranial segment is patent with no significant stenosis. No aneurysm. Left middle cerebral artery: No occlusion or significant stenosis. No aneurysm. Left anterior cerebral artery: No occlusion or significant stenosis. No aneurysm. POSTERIOR CIRCULATION: Right vertebral artery: No occlusion or significant stenosis. No aneurysm. Left vertebral artery: No occlusion or significant stenosis. No aneurysm. Basilar artery: No occlusion or significant stenosis. No aneurysm. Right posterior cerebral artery: No occlusion or significant stenosis. No aneurysm. Left posterior cerebral artery: No occlusion or significant stenosis. No aneurysm. Please see same-day noncontrast CT head examination. PROCEDURE INFORMATION: Exam: CTA Neck With Contrast Exam date and time: 03/05/2024 7:16 PM Age: 83 years old Clinical indication: Speech disturbance; Slurred speech; Additional info: Weakness TECHNIQUE: Imaging protocol: Computed tomographic angiography of the neck with contrast. Exam focused on the cervical segments of the vasculature. 3D rendering (Not supervised by radiologist): MIP and/or 3D reconstructed images were created by the technologist. Radiation optimization: All CT scans at this facility use at least one of these dose optimization techniques: automated exposure control; mA and/or kV adjustment per patient size (includes targeted exams where dose is matched to clinical indication); or iterative reconstruction. Contrast material: OMNIPAQUE 350; Contrast volume: 100 ml; Contrast route: INTRAVENOUS (IV); COMPARISON: CT head wo [facility]* [id number] 03/05/2024 7:16 PM RADIATION DOSE METRICS: Total DLP (mGy-cm): 398.4 FINDINGS: Right common carotid artery: No stenosis. No dissection or occlusion. Right internal carotid artery: No stenosis of the extracranial segment. No dissection or occlusion. Right external carotid artery: No occlusion or stenosis of the origin. Left common carotid artery: No stenosis. No dissection or occlusion. Left internal carotid artery: No stenosis of the extracranial segment. No dissection or occlusion. Left external carotid artery: No occlusion or stenosis of the origin. Right vertebral artery: There appears to be reduced opacification of the origin of the right vertebral artery off the subclavian artery which is artifactual in nature given the degree of motion artifact at the thoracic inlet. Left vertebral artery: No stenosis. No dissection or occlusion. Soft tissues: Normal. No significant soft tissue swelling. Bones/joints: No acute fracture. CT/CT angio headneck* [id number] IMPRESSION: No large vessel stenosis or occlusion. IMPRESSION: There appears to be reduced opacification of the origin of the right vertebral artery off the subclavian artery which is artifactual in nature given the degree of motion artifact at the thoracic inlet. Otherwise no occlusion or stenosis of the CT angio of the. REFERENCES: NASCET CRITERIA. The degree of stenosis in the cervical segment of the internal carotid artery is based on NASCET criteria. Normal is no stenosis. Mild is less than 50% stenosis. Moderate is 50-69% stenosis. Severe is 70% to 99% stenosis. Total occlusion is no detectable patent lumen.
[2024-03-05 19:07] LABS: Alanine Aminotransferase < 5 U/L (0-33); Albumin Level 3.6 g/dL (3.5-5.2); Alkaline Phosphatase 88 U/L (35-105); Anion Gap 14.9 (5-19); Aspartate Amino Transferase 11 U/L (0-32); Blood Urea Nitrogen 18 mg/dL (8-23); Carbon Dioxide 26 mmol/L (22-29); Chloride 103 mmol/L (98-107); Creatinine Clr Calc Pharmacy 45.5373; Globulin 3.4 g/dL (1.3-4.6); Glucose 107 mg/dL (65-115); Magnesium 1.9 mg/dL (1.7-2.3); Osmolality Calculated 292 mOsm/kg (285-295); Potassium 3.9 mmol/L (3.5-5.1); Sodium 140 mmol/L (136-145); Thyroid Stimulating Hormone 1.82 uIU/mL (0.27-4.20); Total Bilirubin 0.3 mg/dL (0.15-1.2)
[2024-03-05 19:23] LABS: Covid PCR NEGATIVE (Negative); Influenza A NEGATIVE (Negative); Influenza B NEGATIVE (Negative); Respiratory Syncytial Virus Ce NEGATIVE (Negative)
[2024-03-05] MEDS: iohexol 350 mg/mL 500 mL Btl (per mL) IV (19:35)
[2024-03-05 19:49] LABS: Bilirubin Urine Negative (Negative); Blood Urine Negative (Negative); Glucose Urine UA Negative (Normal); Ketones Urine Negative (Negative); Leukocyte Esterase Urine 1+ (Negative); Nitrate Urine Negative (Negative); Protein Urine 2+ (Negative); Specific Gravity, Urine 1.014 (1.005-1.030); Urine Appearance Turbid (CLEAR); Urine Color Yellow (Yellow); Urobilinogen Urine 0.2 mg/dL (Negative); pH Urine 7.5 (5-7)
[2024-03-05 19:52] LABS: Add Urine Microscopic? YES; Bacteria Urine 4+ /hpf; Hyaline Casts Urine 66.17 /lpf; RBC Urine 0-2 /hpf (0-2); WBC Urine 21-50 /hpf (0-5)
[2024-03-05 20:16] LABS: UA Slide Review UA Slide Review Perf
[2024-03-05] MEDS: hyDRALAzine 20 mg/mL INJ 1 mL 10 MG IVP (20:27)
[2024-03-05] MEDS: cefTRIAXone 1,000 mg SDV 1000 MG IVP (20:27)
--- NOTE | 2024-03-05 20:52 | P.HP_ITS ---
Providers/Chief Complaint 2 Primary Care Provider: Wesly Santiago DO Chief Complaint: Lethargy History of Present Illness Barb Joiner is a 83 year old female history of Parkinson's, diabetes, hypertension, hip fracture status post wheelchair-bound, on mechanical soft diet presented with chief complaint of confusion. Son is at the bedside stating that he was told about his mother's incoherence today, no fever nausea vomiting diarrhea noted. Patient did not complain of any chest pain. She has been experiencing chest congestion, dry cough. In the ER workup consistent with possible UTI however sample is not clean. I have requested respiratory panel after clinical exam in the ER. Patient has received ceftriaxone already, she is hypertensive received hydralazine 10 mg IV. At the time of my evaluation patient is able to follow commands, AOx3, she is able to tell me son's name, she is able to tell me that she is here for high blood pressure and feeling weak, she is not endorsing hurting anywhere at this point, experiencing dry cough, currently on 2 L nasal cannula, as per the son now her confusion is slightly better. Sinus stating that mostly with UTI she would get confused. Patient is not endorsing signs of UTI, not endorsing abdominal pain chest pain dysuria, fever or vomiting. I reviewed goals of care advance directive: Patient is DNR/DNI in case there is no chance of good recovery, considering her bedbound status and worsening functional capacity, son who is a medical DPOA agreeable with DNR/DNI status Review of Systems 2 General: Reports: ROS unobtainable due to mental status Medications/Allergies Home Medications Medication Instructions Recorded Confirmed Last Taken Type calcium carbonate (Tums) 200 mg PO Q6H PRN Stomach Upset 11/09/21 01/09/24 Unknown History denosumab 60 mg/mL subcutaneous 60 mg SUBCUT Q180D 11/09/21 01/09/24 Unknown History syringe (Prolia) fluticasone propionate 50 2 spray intranasal DAILY PRN 11/09/21 01/09/24 Unknown History mcg/actuation nasal allergies spray,suspension (Flonase Allergy Relief) guaifenesin 600 mg tablet, 600 mg PO BID PRN Congestion 11/09/21 01/09/24 Unknown History extended release 12 hr (Mucinex) cetirizine 5 mg tablet 2.5 mg PO DAILY 03/01/22 01/09/24 Unknown History carbidopa ER 25 mg-levodopa 100 mg See Rx Instructions PO BID #90 tabs 06/02/22 01/09/24 Unknown Rx tablet,extended release acetaminophen 500 mg tablet 500 mg PO BID 06/12/22 01/09/24 Unknown History albuterol sulfate 2.5 mg/3 mL 2.5 mg inhalation TID PRN 06/12/22 01/09/24 Unknown History (0.083 %) solution for nebulization Shortness Of Breath aspirin 81 mg chewable tablet 81 mg PO DAILY 06/12/22 01/09/24 Unknown History bisacodyl 10 mg rectal suppository 10 mg SC DAILY PRN Constipation 06/12/22 01/09/24 Unknown History (Dulcolax (bisacodyl)) diclofenac sodium 1 % topical gel 2 g topical BEDTIME 06/12/22 01/09/24 Unknown History (Voltaren Arthritis Pain) famotidine 20 mg tablet (Pepcid) 20 mg PO DAILY 06/12/22 01/09/24 Unknown History insulin degludec 100 unit/mL 15 unit SUBCUT BEDTIME 06/12/22 01/09/24 Unknown History subcutaneous solution (Tresiba U-100 Insulin) menthol 5 mg lozenges (Cough Drops) 5 mg mucous membrane Q4H 06/12/22 01/09/24 Unknown History promethazine-DM 6.25 mg-15 mg/5 mL 5 ml PO Q8H PRN Cough 06/12/22 01/09/24 Unknown History oral syrup propylene glycol 0.6 % eye drops 1 drp ophthalmic (eye) BID 06/12/22 01/09/24 Unknown History (Systane Balance) red yeast rice 600 mg capsule 600 mg PO DAILY 06/12/22 01/09/24 Unknown History vitamins A,C,T-nrcj-htyhdl 2,148 1 tab PO DAILY 06/12/22 01/09/24 Unknown History mcg-113 mg-45 mg-17.4 mg tablet (PreserVision AREDS) insulin lispro 100 unit/mL 5 unit SUBCUT TID 08/30/22 01/09/24 Unknown History subcutaneous pen (Humalog Tempo Pen (U-100) Insulin) magnesium hydroxide 400 mg/5 mL 30 ml PO DAILY PRN Constipation 08/30/22 01/09/24 Unknown History oral suspension (Milk of Magnesia) ropinirole 0.25 mg tablet 0.25 mg PO BEDTIME 08/30/22 01/09/24 Unknown History sodium phosphates 19 gram-7 118 ml SC PRN PRN Constipation 08/30/22 01/09/24 Unknown History gram/118 mL enema (Fleet Enema) Diabetic shoes #1 ea 01/09/24 01/09/24 Unknown Rx Allergies Allergy/AdvReac Type Severity Reaction Status Date / Time adhesive tape Allergy Mild Rash Verified 01/09/24 13:20 Sulfa (Sulfonamide Allergy Mild Rash Verified 01/09/24 13:20 Antibiotics) gabapentin AdvReac floats on Verified 01/09/24 13:20 the ceiling hydrocodone AdvReac Floats on Verified 01/09/24 13:20 the ceiling Penicillins AdvReac Makes her Verified 01/09/24 13:20 sleep PFSH Acute 2 PFSH: Medical History Hypertension GERD (gastroesophageal reflux disease) Chronic kidney disease COPD (chronic obstructive pulmonary disease) Progressive supranuclear palsy Type 2 diabetes mellitus Family History Other CAD (coronary artery disease) Social History Smoking and tobacco/nicotine status: unknown if used tobacco/nicotine Alcohol intake: never Substance/Drug Use: never Household members: other Housing: [facility] Vitals/I&O/Wt Last Vital Signs Temp 99.3 F 03/05/24 18:07 Pulse 87 03/05/24 20:14 Resp 20 H 03/05/24 20:15 BP 215/109 03/05/24 20:14 Pulse Ox 87 L 03/05/24 20:15 O2 Del Method Room Air 03/05/24 18:07 Weight last 48 hrs Weight 77.111 kg Physical Exam 2 Narrative: Patient able to answer simple questions I do not see any focal deficit Dry cough Currently on 2 L Abdomen soft Lower extremity no significant edema Son at the bedside S1, S2 Mild rhonchi with wheezing Nondistended abdomen: No signs of peritonitis I do not appreciate any focal deficit Hypertensive Data 03/05/24 17:55 03/05/24 17:55 A&P Assessment and plan (1) Type 2 diabetes mellitus: (2) UTI (urinary tract infection): (3) Progressive supranuclear palsy: (4) Hypoxia: (5) Debility: (6) Weakness: (7) Dry cough: Plan Altered mental status Incoherence episode at the long-term Patient is not showing any sign of stroke She is AOx3 at the time of evaluation NIH 0 Hypertensive Possible UTI however sample is not clean I have requested respiratory panel Metabolic encephalopathy likely related to UTI, Resp panel is pending No fever, no leukocytosis, no signs of meningitis If she remains afebrile no leukocytosis and procalcitonin stay unremarkable, urine culture negative ceftriaxone could be discontinued after 3 days Parkinson's: I do believe patient is suffering from on/off phenomenon She is only taking Parkinson's med twice a day, I would increase the frequency to 3 times a day She is wheelchair-bound secondary to hip fracture in the past Possible Parkinson related dementia She is on mechanical soft diet request another speech therapy in the morning Hypertensive urgency: I will add lisinopril twice a day regimen, on as needed basis can use hydralazine, will also add metoprolol Goals of care discussed with the son who is medical DPOA: Patient is DNR/DNI, he also showed me the documentation for advanced directives Will put patient on DVT prophylaxis Mechanical soft diet Attestations 2 Medical Necessity Statement*: Anticipating discharge within 48 hours Diagnoses Type 2 diabetes mellitus E11.9 UTI (urinary tract infection) N39.0 Progressive supranuclear palsy G23.1 Hypoxia R09.02 Debility R53.81 Weakness R53.1 Dry cough R05.8
[2024-03-05] MEDS: insulin glargine 100 units/1 mL 10 UNIT SUBCUT (22:22)
[2024-03-05] MEDS: enoxaparin 40 mg/0.4 mL Syringe SUBCUT (22:22)
[2024-03-05 22:46] LABS: Glucose Point of Care 105 mg/dL (70-110)
[2024-03-06] VITALS (24 sets, daily range): BP systolic 131–186; BP diastolic 53–94; PULSE 60–104; RESP 15–20; TEMP 36.4–37; O2SAT 83–96; BMI 31.1
[2024-03-06 01:45] LABS: Glucose Point of Care 118 mg/dL (70-110)
[2024-03-06 04:57] LABS: Basophils # 0.1 10^3/uL (0.0-0.1); Basophils % 1.1 %; Eosinophils # 0.1 10^3/uL (0.0-0.8); Eosinophils % 1.1 %; Hematocrit 37.6 % (36-47); Lymphocytes # 1.3 10^3/uL (0.8-4.8); Lymphocytes % 28.6 %; Mean Corpuscular HGB Conc 30.1 g/dL (30-55); Mean Corpuscular Hemoglobin 25.9 pg (27-33); Mean Platelet Volume 10.2 fL (7.4-10.4); Monocytes # 0.9 10^3/uL (0.2-0.9); Monocytes % 18.3 %; Neutrophils # 2.36 10^3/uL (1.8-7.7); Neutrophils % 50.3 %; Nucleated Red Blood Cells % 0 %; Platelet Count 174 10^3/cmm (157-399); Red Blood Count 4.37 10^6/uL (3.85-5.65); Red Cell Distribution Width 13.6 % (12.1-15.1); White Blood Count 4.69 10^3/uL (3.29-11.43)
[2024-03-06 05:23] LABS: Anion Gap 13.9 (5-19); Blood Urea Nitrogen 14 mg/dL (8-23); C Reactive Protein 14.3 mg/L (0.0-4.9); Calcium 9.4 mg/dL (8.5-10.5); Carbon Dioxide 27 mmol/L (22-29); Chloride 101 mmol/L (98-107); Creatinine Clr Calc Pharmacy 45.5373; Glucose 114 mg/dL (65-115); Magnesium 1.7 mg/dL (1.7-2.3); Osmolality Calculated 287 mOsm/kg (285-295); Potassium 3.9 mmol/L (3.5-5.1); Sodium 138 mmol/L (136-145)
[2024-03-06 07:48] LABS: Glucose Point of Care 112 mg/dL (70-110)
[2024-03-06] MEDS: aspirin 81 mg Chew Tablet PO (09:17)
[2024-03-06] MEDS: cefTRIAXone 1,000 mg SDV 1000 MG IVP (09:17)
[2024-03-06] MEDS: lisinopril 10 mg Tablet PO ×2 (09:17→18:05)
--- NOTE | 2024-03-06 09:17 | PC.CHAP ---
Pastoral Care Encounter/Spiritual Assessment Type of Contact [] Declined instructor bridge visit [] Patient/Family/Request visit [] Outpatient visit [] Follow-up visit [] Physician referral [] Code/Alert [x] Routine visit [] Staff referral [] Actively dying [] Patient sleeping [] Family support [] [] Out of room [] Palliative care [] [] Receiving care in room [] Pre-surgical visit [] Trauma [] Long length of stay [] ICU visit [] Other: Relational/Emotional Strength [x] Patient feels connected with others/family/visitors/staff [] Distress [] Loneliness/isolation [] Abandonment Spirituality of Patient [x] Person of Tory [] Attends Scientologist of their Tory [x] Believes in Prayer [] Reads Bible or Evangelical materials [] There are Spiritual issues to be addressed Station Inspector Interventions [x] Prayer [x] Active listening [] Non-anxious presence [x] Spiritual/emotional support [] Crisis/trauma care [] Spiritual counseling [] Bereavement support [] Provided bereavement packet [] Provided Bible/devotional materials [] Provided toy/stuffed animal, coloring book to patient or family member [] Provided Communion [] Anointing/[place] [] Salvation [x] Completed spiritual assessment [] Other: Impact on Illness or Injury [] Angry [] Fearful [] Anxious [] Often cries [] Exhaustion [] Unable to work [] Unable to attend latter-day [] Unable to walk/stand [] Unable to read [] Unable to drive [] Unable to eat/drink [] Unable to sleep [] Unable to be with family [] Patient intubated [] Other: Summary Time spent with patient 5 min
[2024-03-06] MEDS: metoprolol tartrate 25 mg Tablet PO ×2 (09:20→22:00)
[2024-03-06 11:27] LABS: Glucose Point of Care 147 mg/dL (70-110)
--- NOTE | 2024-03-06 15:23 | PM.PN ---
Subjective Subjective: Patient was seen this morning, she is alert to person, not to place, not to time, she is quite drowsy this morning, no family members at bedside, she does withdraw from pain, does localize pain, pupils equal round reactive to light, she does voice to me that she is doing okay but that is the most likely get out of her I had a meeting with patient's son this afternoon, he tells me that Barb is a bit more lethargic than she normally is but sometimes this is her, we discussed her care at the [facility], he tells that she gets great care there, that they can take care of her there with all her needs, she is a [employer] lift, family have signed a waiver so she can eat what ever she wants, they understand the aspiration risk, we did discuss hospice as a possibility, purpose of hospice would be to ease her pain and ease her suffering, allow her to stay at the [facility], avoid aggressive interventions, as I am worried about her decline, son does report that she is slowly declined over the last few months, however son is not ready to make that decision, and would like her to eventually get back to the the [facility] is before making that decision, discussed continue to monitor here in the hospital with IV antibiotics, son is agreeable Vitals/I&O/Wt Last Vital Signs Temp 97.6 F 03/06/24 11:35 Pulse 72 03/06/24 11:35 Resp 18 03/06/24 11:35 BP 141/76 03/06/24 11:35 Pulse Ox 96 03/06/24 11:35 O2 Del Method Nasal Cannula 03/06/24 11:35 O2 Flow Rate 3 03/06/24 08:08 03/06/24 03/06/24 03/06/24 06:59 14:59 22:59 Intake Total 310 / 310 300 / 300 Output Total 1999 / 1999 Balance 310 / 310 -1700 / -1700 Weight last 48 hrs Weight 77.111 kg Weight 77.111 kg Physical Exam Const: COMMON NORMALS: no acute distress EXAM LIMITATIONS: altered mental status ORIENTATION/CONSCIOUSNESS: Yes awake and Yes confused; not oriented to person, not oriented to place and not oriented to time Resp: COMMON NORMALS: normal respiratory effort, No retractions, No use of accessory muscles and clear to auscultation bilaterally AUSCULTATION: clear to auscultation bilaterally Cardio: COMMON NORMALS: regular rate, regular rhythm, S1 normal heart sound present and S2 normal heart sound present RATE: regular rate RHYTHM: regular rhythm HEART SOUNDS: S1 normal heart sound present and S2 normal heart sound present GI: COMMON NORMALS: Normal to inspection, nondistended, normoactive bowel sounds present and non-tender Extremity: COMMON NORMALS: no pedal edema Neuro: SENSORIUM/ORIENTATION: No oriented to person, No oriented to place and No oriented to time Data 03/06/24 04:50 03/06/24 04:50 A&P Assessment and plan (1) Type 2 diabetes mellitus: (2) UTI (urinary tract infection): (3) Progressive supranuclear palsy: (4) Hypoxia: (5) Debility: (6) Weakness: (7) Dry cough: Plan Altered mental status Recently less responsive Globally encephalopathic Currently alert to person, not to place, not to time, easily falls back asleep NIH 0 Hypertensive UTI, continue Rocephin Parkinson's: I do believe patient is suffering from on/off phenomenon Sinemet increased to 3 times daily She is wheelchair-bound secondary to hip fracture in the past Possible Parkinson related dementia She is on mechanical soft diet request Hypertensive urgency: Lisinopril, metoprolol, Goals of care discussed with the son who is medical DPOA: Patient is DNR/DNI, he also showed me the documentation for advanced directives Will put patient on DVT prophylaxis Mechanical soft diet Attestations Medical Necessity Statement*: Patient requires hospitalization for acute encephalopathy, concern for UTI Diagnoses Type 2 diabetes mellitus E11.9 UTI (urinary tract infection) N39.0 Progressive supranuclear palsy G23.1 Hypoxia R09.02 Debility R53.81 Weakness R53.1 Dry cough R05.8
[2024-03-06 16:32] LABS: Glucose Point of Care 119 mg/dL (70-110)
[2024-03-06] MEDS: carbidopa-levodopa 25-100mg Tablet 1 EACH PO (18:05)
[2024-03-06 20:35] LABS: Glucose Point of Care 126 mg/dL (70-110)
[2024-03-06] MEDS: insulin glargine 100 units/1 mL 10 UNIT SUBCUT (21:59)
[2024-03-06] MEDS: enoxaparin 40 mg/0.4 mL Syringe SUBCUT (22:00)
[2024-03-07] VITALS (7 sets, daily range): BP systolic 124–167; BP diastolic 63–73; PULSE 57–70; RESP 14–18; TEMP 36.8–37.1; O2SAT 91–96
[2024-03-07 05:33] LABS: Basophils % 0.8 %; Eosinophils # 0.1 10^3/uL (0.0-0.8); Eosinophils % 2.3 %; Hematocrit 40.6 % (36-47); Lymphocytes # 1.8 10^3/uL (0.8-4.8); Mean Corpuscular HGB Conc 29.3 g/dL (30-55); Mean Corpuscular Hemoglobin 26.3 pg (27-33); Mean Corpuscular Volume 89.8 fl (85-98); Mean Platelet Volume 10.2 fL (7.4-10.4); Monocytes % 20.3 %; Neutrophils # 1.74 10^3/uL (1.8-7.7); Nucleated Red Blood Cells % 0 %; Platelet Count 171 10^3/cmm (157-399); Red Blood Count 4.52 10^6/uL (3.85-5.65); White Blood Count 4.72 10^3/uL (3.29-11.43)
[2024-03-07 05:54] LABS: Alanine Aminotransferase < 5 U/L (0-33); Albumin Level 3.2 g/dL (3.5-5.2); Alkaline Phosphatase 74 U/L (35-105); Anion Gap 11.9 (5-19); Aspartate Amino Transferase 10 U/L (0-32); Blood Urea Nitrogen 19 mg/dL (8-23); Calcium 9.3 mg/dL (8.5-10.5); Carbon Dioxide 30 mmol/L (22-29); Chloride 102 mmol/L (98-107); Creatinine Clr Calc Pharmacy 37.5145; Globulin 3.1 g/dL (1.3-4.6); Glucose 77 mg/dL (65-115); Osmolality Calculated 291 mOsm/kg (285-295); Phosphorus 3.4 mg/dL (2.5-4.5); Potassium 3.9 mmol/L (3.5-5.1); Sodium 140 mmol/L (136-145); Total Bilirubin 0.2 mg/dL (0.15-1.2); Total Protein 6.3 g/dL (6.6-8.7)
[2024-03-07 07:19] LABS: Glucose Point of Care 75 mg/dL (70-110)
[2024-03-07] MEDS: carbidopa-levodopa 25-100mg Tablet 1 EACH PO ×2 (09:08→16:28)
[2024-03-07] MEDS: lisinopril 10 mg Tablet PO ×2 (09:08→16:28)
[2024-03-07] MEDS: aspirin 81 mg Chew Tablet PO (09:08)
[2024-03-07] MEDS: metoprolol tartrate 25 mg Tablet PO ×2 (09:08→21:42)
[2024-03-07] MEDS: cefTRIAXone 1,000 mg SDV 1000 MG IVP (09:12)
[2024-03-07 11:08] LABS: Glucose Point of Care 87 mg/dL (70-110)
--- NOTE | 2024-03-07 12:50 | PC.CHAP ---
Pastoral Care Encounter/Spiritual Assessment Type of Contact [] Declined rural carrier associate visit [] Patient/Family/Request visit [] Outpatient visit [] Follow-up visit [] Physician referral [] Code/Alert [] Routine visit [] Staff referral [] Actively dying [x] Patient sleeping [] Family support [] [] Out of room [] Palliative care [] [] Receiving care in room [] Pre-surgical visit [] Trauma [] Long length of stay [] ICU visit [] Other: Relational/Emotional Strength [] Patient feels connected with others/family/visitors/staff [] Distress [] Loneliness/isolation [] Abandonment Spirituality of Patient [] Person of Tory [] Attends Restorationist of their Tory [] Believes in Prayer [] Reads Bible or Mandaeism materials [] There are Spiritual issues to be addressed Oil Tank Car Cleaner Interventions [] Prayer [] Active listening [] Non-anxious presence [] Spiritual/emotional support [] Crisis/trauma care [] Spiritual counseling [] Bereavement support [] Provided bereavement packet [] Provided Bible/devotional materials [] Provided toy/stuffed animal, coloring book to patient or family member [] Provided Communion [] Anointing/[place] [] Salvation [] Completed spiritual assessment [] Other: Impact on Illness or Injury [] Angry [] Fearful [] Anxious [] Often cries [] Exhaustion [] Unable to work [] Unable to attend mandaen [] Unable to walk/stand [] Unable to read [] Unable to drive [] Unable to eat/drink [] Unable to sleep [] Unable to be with family [] Patient intubated [] Other: Summary Time spent with patient
--- NOTE | 2024-03-07 14:03 | P.PN_ITS ---
Subjective 2 Subjective: Patient was seen this morning, she is alert to person, to place not to time, she does follow some commands Vitals/I&O/Wt Last Vital Signs Temp 98.2 F 03/07/24 11:25 Pulse 58 L 03/07/24 11:25 Resp 14 03/07/24 11:25 BP 152/64 03/07/24 11:25 Pulse Ox 95 03/07/24 11:25 O2 Del Method Nasal Cannula 03/07/24 11:25 O2 Flow Rate 2.5 03/07/24 11:25 03/06/24 03/07/24 03/07/24 22:59 06:59 14:59 Intake Total 50 / 350 120 / 120 Output Total 300 / 2300 200 / 2500 Balance -250 / -1950 -200 / -2150 120 / 120 Weight last 48 hrs Weight 78.16 kg Weight 77.111 kg Weight 77.111 kg Physical Exam 2 Const: COMMON NORMALS: no acute distress Resp: COMMON NORMALS: normal respiratory effort, No retractions, No use of accessory muscles and clear to auscultation bilaterally AUSCULTATION: clear to auscultation bilaterally Cardio: COMMON NORMALS: regular rate, regular rhythm, S1 normal heart sound present and S2 normal heart sound present RATE: regular rate RHYTHM: r egular rhythm HEART SOUNDS: S1 normal heart sound present and S2 normal heart sound present GI: COMMON NORMALS: Normal to inspection, nondistended, normoactive bowel sounds present and non-tender Extremity: COMMON NORMALS: no clubbing, cyanosis or edema and no pedal edema Data 03/07/24 04:54 03/07/24 04:54 Micro: Microbiology 03/05/24 19:35 Urine Culture - Preliminary Urine Catheterized Gram Negative Rods A&P Assessment and plan (1) Type 2 diabetes mellitus: (2) UTI (urinary tract infection): (3) Progressive supranuclear palsy: (4) Hypoxia: (5) Debility: (6) Weakness: (7) Dry cough: Plan Altered mental status Recently less responsive Globally encephalopathic Currently alert to person, not to place, not to time, easily falls back asleep NIH 0 Hypertensive UTI, continue Rocephin Parkinson's: I do believe patient is suffering from on/off phenomenon Sinemet increased to 3 times daily She is wheelchair-bound secondary to hip fracture in the past Possible Parkinson related dementia She is on mechanical soft diet request Hypertensive urgency: Lisinopril, metoprolol, Goals of care discussed with the son who is medical DPOA: Patient is DNR/DNI, he also showed me the documentation for advanced directives Will put patient on DVT prophylaxis Mechanical soft diet Urine culture showing gram-negative rods, prior urine cultures have shown multidrug-resistant infections, we will keep her as inpatient continue IV antibiotics until culture results are available, as she is increased risk of ESBL infections Attestations 2 Medical Necessity Statement*: Patient requires hospitalization for altered mental status secondary UTI Diagnoses Type 2 diabetes mellitus E11.9 UTI (urinary tract infection) N39.0 Progressive supranuclear palsy G23.1 Hypoxia R09.02 Debility R53.81 Weakness R53.1 Dry cough R05.8
[2024-03-07 16:15] LABS: Glucose Point of Care 96 mg/dL (70-110)
[2024-03-07 20:33] LABS: Glucose Point of Care 101 mg/dL (70-110)
[2024-03-07] MEDS: enoxaparin 40 mg/0.4 mL Syringe SUBCUT (21:42)
[2024-03-08 03:49] VITALS: BP 129/90; PULSE 77; RESP 15; TEMP 36.9; O2SAT 91
[2024-03-08 06:04] LABS: Basophils % 0.8 %; Eosinophils # 0.1 10^3/uL (0.0-0.8); Eosinophils % 2.4 %; Hematocrit 38.6 % (36-47); Lymphocytes # 1.6 10^3/uL (0.8-4.8); Lymphocytes % 31.2 %; Mean Corpuscular HGB Conc 29.5 g/dL (30-55); Mean Corpuscular Volume 88.1 fl (85-98); Mean Platelet Volume 10.5 fL (7.4-10.4); Monocytes # 0.9 10^3/uL (0.2-0.9); Monocytes % 16.7 %; Neutrophils # 2.48 10^3/uL (1.8-7.7); Neutrophils % 48.5 %; Nucleated Red Blood Cells % 0 %; Platelet Count 170 10^3/cmm (157-399); Red Blood Count 4.38 10^6/uL (3.85-5.65); Red Cell Distribution Width 13.8 % (12.1-15.1)
[2024-03-08 06:23] LABS: Glucose Point of Care 134 mg/dL (70-110)
[2024-03-08 06:25] LABS: Alanine Aminotransferase < 5 U/L (0-33); Albumin Level 3.1 g/dL (3.5-5.2); Alkaline Phosphatase 75 U/L (35-105); Anion Gap 16.1 (5-19); Aspartate Amino Transferase 12 U/L (0-32); Blood Urea Nitrogen 17 mg/dL (8-23); Calcium 9.1 mg/dL (8.5-10.5); Carbon Dioxide 28 mmol/L (22-29); Chloride 101 mmol/L (98-107); Globulin 3.2 g/dL (1.3-4.6); Glucose 121 mg/dL (65-115); Magnesium 1.9 mg/dL (1.7-2.3); Osmolality Calculated 295 mOsm/kg (285-295); Phosphorus 3.2 mg/dL (2.5-4.5); Potassium 4.1 mmol/L (3.5-5.1); Sodium 141 mmol/L (136-145); Total Bilirubin 0.2 mg/dL (0.15-1.2); Total Protein 6.3 g/dL (6.6-8.7)
[2024-03-08 07:50] VITALS: BP 189/79; PULSE 71; RESP 18; TEMP 36.6; O2SAT 91
[2024-03-08 08:34] VITALS: PULSE 69; RESP 16; O2SAT 96
[2024-03-08] MEDS: carbidopa-levodopa 25-100mg Tablet 1 EACH PO (08:51)
[2024-03-08] MEDS: cefTRIAXone 1,000 mg SDV 1000 MG IVP (08:51)
[2024-03-08] MEDS: aspirin 81 mg Chew Tablet PO (08:51)
[2024-03-08] MEDS: lisinopril 10 mg Tablet PO (08:51)
[2024-03-08] MEDS: metoprolol tartrate 25 mg Tablet PO (09:50)
--- NOTE | 2024-03-08 10:49 | PM.DCS ---
Discharge Providers Date of Admission: 03/06/24 16:07 Date of Discharge: March 08, 2024 Attending Provider at Admission: Shanon Barbosa MD Attending Provider at Discharge: Shawn Lawrence MD Primary Care Provider: Wesly Santiago DO Diagnoses at Discharge Discharge Diagnosis (1) Type 2 diabetes mellitus: Status: Acute (2) UTI (urinary tract infection): Status: Acute (3) Progressive supranuclear palsy: Status: Acute (4) Hypoxia: Status: Acute (5) Debility: Status: Acute (6) Weakness: Status: Acute (7) Dry cough: Status: Acute Reason for Visit Reason for Visit: Lethargy Hospital Course Hospital Course This is a 83 female with past medical history of Parkinson's disease, diabetes hypertension history of hip fracture, wheelchair-bound, history of dementia, risk of aspiration but according to family's wishes is on a regular diet, DNR/DNI who presents [facility] failure due to altered mental status Patient was admitted to [facility] for altered mental status, likely combination of aspiration pneumonia, UTI. She received IV antibiotics, so far he remains afebrile urine, culture showing gram-negative rods, will be discharged on cefdinir For her history of aspiration, aspiration pneumonia, family's wishes are that she have a regular diet, they understand the risk of aspiration, morbidity and mortality associated, overall they want to emphasize her comfort. She will be discharged on cefdinir as above, discharged on 2 L For her hypertension discharged on lisinopril, metoprolol On discharge she is alert to person consistently, not to place, not to time she does awaken she does answer questions sometimes, and other times she is quite drowsy and confused, according to son is about at her baseline but overall remains quite deconditioned, bedbound, Jose Ramon lift. I did discuss hospice with the patient's son, declined for now Physical Exam Const: COMMON NORMALS: no acute distress ORIENTATION/CONSCIOUSNESS: Yes awake, Yes oriented to person and Yes confused; not oriented to place and not oriented to time Resp: COMMON NORMALS: normal respiratory effort, No retractions, No use of accessory muscles and clear to auscultation bilaterally AUSCULTATION: clear to auscultation bilaterally Cardio: COMMON NORMALS: regular rate, regular rhythm, S1 normal heart sound present and S2 normal heart sound present RATE: regular rate RHYTHM: regular rhythm HEART SOUNDS: S1 normal heart sound present and S2 normal heart sound present GI: COMMON NORMALS: Normal to inspection, nondistended, normoactive bowel sounds present, non-tender and No hepatosplenomegaly present PALPATION: Yes No hepatosplenomegaly present Neuro: SENSORIUM/ORIENTATION: Yes oriented to person, No oriented to place and No oriented to time Discharge Data Studies Completed and Pending Completed Studies During Hospitalization Category Date Time Status CT head wo con* 71022 Stat Cat Scan 03/05/24 18:26 Completed CTA head neck [CT angio headneck* 39461/09301] Stat Cat Scan 03/05/24 18:56 Completed XR chest 1V portable [id number] Stat Exams 03/05/24 18:18 Completed Pending at discharge Category Date Time Status Complete Blood Count w/Auto AM LABS Lab 03/09/24 04:00 Ordered Comprehensive Metabolic Panel AM LABS Lab 03/09/24 04:00 Ordered Magnesium AM LABS Lab 03/09/24 04:00 Ordered Phosphorus AM LABS Lab 03/09/24 04:00 Ordered Urine Culture Stat Lab 03/05/24 19:35 Results Radiology Impressions Chest X-Ray 03/05/24 18:18 IMPRESSION: As above. Head CT 03/05/24 18:26 IMPRESSION: No acute intracranial process. Chronic changes as above. There is a similar right posterior nasal fossa mass and diffuse paranasal sinus disease related to fungal sinusitis or inspissated secretions. Head/Neck CTA 03/05/24 18:56 IMPRESSION: No large vessel stenosis or occlusion. IMPRESSION: There appears to be reduced opacification of the origin of the right vertebral artery off the subclavian artery which is artifactual in nature given the degree of motion artifact at the thoracic inlet. Otherwise no occlusion or stenosis of the CT angio of the. REFERENCES: NASCET CRITERIA. The degree of stenosis in the cervical segment of the internal carotid artery is based on NASCET criteria. Normal is no stenosis. Mild is less than 50% stenosis. Moderate is 50-69% stenosis. Severe is 70% to 99% stenosis. Total occlusion is no detectable patent lumen. Laboratory Results WBC 5.10 10^3/uL (3.29-11.43) 03/08/24 05:07 RBC 4.38 10^6/uL (3.85-5.65) 03/08/24 05:07 Hgb 11.40 g/dL (11.27-16.99) 03/08/24 05:07 Hct 38.6 % (36-47) 03/08/24 05:07 MCV 88.1 fl (85-98) 03/08/24 05:07 MCH 26.0 pg (27-33) L 03/08/24 05:07 MCHC 29.5 g/dL (30-55) L 03/08/24 05:07 RDW 13.8 % (12.1-15.1) 03/08/24 05:07 Plt Count 170 10^3/cmm (157-399) 03/08/24 05:07 MPV 10.5 fL (7.4-10.4) H 03/08/24 05:07 Neut % (Auto) 48.5 % 03/08/24 05:07 Lymph % (Auto) 31.2 % 03/08/24 05:07 [place] % (Auto) 16.7 % 03/08/24 05:07 Eos % (Auto) 2.4 % 03/08/24 05:07 Baso % (Auto) 0.8 % 03/08/24 05:07 Neut # (Auto) 2.48 10^3/uL (1.8-7.7) 03/08/24 05:07 Lymph # (Auto) 1.6 10^3/uL (0.8-4.8) 03/08/24 05:07 [place] # (Auto) 0.9 10^3/uL (0.2-0.9) 03/08/24 05:07 Eos # (Auto) 0.1 10^3/uL (0.0-0.8) 03/08/24 05:07 Baso # (Auto) 0.0 10^3/uL (0.0-0.1) 03/08/24 05:07 Nucleated RBC % (auto) 0 % 03/08/24 05:07 Nucleated RBCs # 0.0 /100WBC 03/08/24 05:07 Sodium 141 mmol/L (136-145) 03/08/24 05:07 Potassium 4.1 mmol/L (3.5-5.1) 03/08/24 05:07 Chloride 101 mmol/L (98-107) 03/08/24 05:07 Carbon Dioxide 28 mmol/L (22-29) 03/08/24 05:07 Anion Gap 16.1 (5-19) 03/08/24 05:07 BUN 17 mg/dL (8-23) 03/08/24 05:07 Creatinine 1.0 mg/dL (0.5-0.9) H 03/08/24 05:07 GFR Calculation Not Reportable 03/08/24 05:07 Glucose 121 mg/dL (65-115) H 03/08/24 05:07 POC Glucose 134 mg/dL (70-110) H 03/08/24 06:14 Calculated Osmolality 295 mOsm/kg (285-295) 03/08/24 05:07 Calcium 9.1 mg/dL (8.5-10.5) 03/08/24 05:07 Phosphorus 3.2 mg/dL (2.5-4.5) 03/08/24 05:07 Magnesium 1.9 mg/dL (1.7-2.3) 03/08/24 05:07 Total Bilirubin 0.2 mg/dL (0.15-1.2) 03/08/24 05:07 AST 12 U/L (0-32) 03/08/24 05:07 ALT < 5 U/L (0-33) 03/08/24 05:07 Alkaline Phosphatase 75 U/L (35-105) 03/08/24 05:07 C-Reactive Protein 14.3 mg/L (0.0-4.9) H 03/06/24 04:50 Total Protein 6.3 g/dL (6.6-8.7) L 03/08/24 05:07 Albumin 3.1 g/dL (3.5-5.2) L 03/08/24 05:07 Globulin 3.2 g/dL (1.3-4.6) 03/08/24 05:07 TSH 1.82 uIU/mL (0.27-4.20) 03/05/24 17:55 Urine Color Yellow (Yellow) 03/05/24 19:35 Urine Appearance Turbid (CLEAR) A 03/05/24 19:35 Urine pH 7.5 (5-7) 03/05/24 19:35 Ur Specific [place] 1.014 (1.005-1.030) 03/05/24 19:35 Urine Protein 2+ (Negative) A 03/05/24 19:35 Urine Glucose (UA) Negative (Normal) 03/05/24 19:35 Urine Ketones Negative (Negative) 03/05/24 19:35 Urine Blood Negative (Negative) 03/05/24 19:35 Urine Nitrate Negative (Negative) 03/05/24 19:35 Urine Bilirubin Negative (Negative) 03/05/24 19:35 Urine Urobilinogen 0.2 mg/dL (Negative) 03/05/24 19:35 Ur Leukocyte Esterase 1+ (Negative) A 03/05/24 19:35 Urine RBC 0-2 /hpf (0-2) 03/05/24 19:35 Urine WBC 21-50 /hpf (0-5) H 03/05/24 19:35 Ur Squamous Epith Cells 11-20 /hpf (0-5) H 03/05/24 19:35 Amorphous Sediment Not Reportable 03/05/24 19:35 Urine Bacteria 4+ /hpf (NONE) H 03/05/24 19:35 Hyaline Casts 66.17 /lpf 03/05/24 19:35 Coronavirus (PCR) Negative (Negative) 03/05/24 18:37 Influenza A (PCR) Negative (Negative) 03/05/24 18:37 Influenza Type B (PCR) Negative (Negative) 03/05/24 18:37 RSV (PCR) Negative (Negative) 03/05/24 18:37 Vitals Last Vital Signs Temp 98 F 03/08/24 07:50 Pulse 69 03/08/24 08:34 Resp 16 03/08/24 08:34 BP 189/79 03/08/24 07:50 Pulse Ox 96 03/08/24 08:34 O2 Del Method Nasal Cannula 03/08/24 08:34 O2 Flow Rate 2 03/08/24 08:34 Discharge Plan Discharge Patient Disposition: Home Condition: Stable Prescriptions: New lisinopril 10 mg Tablet 10 mg PO BID 30 Days Qty: 60 0RF cefdinir 300 mg capsule 300 mg PO BID 5 Days Qty: 10 0RF metoprolol tartrate 25 mg Tablet 25 mg PO BID@0900,2100 30 Days Qty: 60 0RF Continued carbidopa-levodopa 25-100 mg tablet extended release See Rx Instructions PO BID Qty: 90 2RF Rx Instructions: Take 1 tablet by mouth twice daily. calcium carbonate [Tums] 200 mg calcium (500 mg) tablet,chewable 200 mg PO Q6H PRN (Reason: Stomach Upset) guaifenesin [Mucinex] 600 mg tablet extended release 12hr 600 mg PO BID PRN (Reason: Congestion) fluticasone propionate [Flonase Allergy Relief] 50 mcg/actuation spray,suspension 2 spray intranasal DAILY PRN (Reason: allergies) Rx Instructions: administer into each nostril (DME) Diabetic shoes See Rx Instructions .Route .MEDSUPPLY Qty: 1 0RF Rx Instructions: As directed by [employer] 3 x insoles promethazine-DM 6.25-15 mg/5 mL Syrup 5 ml PO Q8H PRN (Reason: Cough) albuterol sulfate 2.5 mg /3 mL (0.083 %) Solution For Nebulization 2.5 mg INHALATION TID PRN (Reason: Shortness Of Breath) acetaminophen 500 mg Tablet 500 mg PO BID famotidine [Pepcid] 20 mg Tablet 20 mg PO DAILY bisacodyl [Dulcolax (bisacodyl)] 10 mg Suppository 10 mg VT DAILY PRN (Reason: Constipation) aspirin 81 mg Tablet,Chewable 81 mg PO DAILY Cough Drops 5 mg Lozenge 5 mg MUCOUS MEMBRANE Q4H PRN (Reason: Cough) red yeast rice 600 mg Capsule 600 mg PO DAILY Rx Instructions: give with meal/snack diclofenac sodium [Voltaren Arthritis Pain] 1 % Gel 2 g TOPICAL BEDTIME Rx Instructions: apply to single elbow, wrist or hand; for hand includes palm/fingers/back of hand Systane Balance 0.6 % Drops 1 drp OPHTHALMIC (EYE) QID acetaminophen 325 mg Tablet 325 mg PO Q4H PRN (Reason: Pain) Vicks Vaporub Ointment 1 ea TOPICAL DAILY ondansetron HCl 4 mg tablet 4 mg PO .Q4-6H PRN (Reason: Nausea And Vomiting) guaifenesin [Robitussin] 100 mg/5 mL Liquid 200 mg PO Q6H PRN (Reason: Congestion) polyethylene glycol 3350 [Miralax] 17 gram/dose Powder 17 g PO DAILY Metamucil (with sugar) 3.4 gram Powder In Packet 1 tbsp PO DAILY Changed insulin degludec [Tresiba U-100 Insulin] 100 unit/mL Solution 10 unit SUBCUT BEDTIME Qty: 10 0RF insulin lispro [Admelog SoloStar U-100 Insulin] 100 unit/mL insulin pen See Rx Instructions .ROUTE .COMPLEX Qty: 15 0RF Rx Instructions: Inject, subcut, 3 times daily, after meals, based on low-dose sliding scale Discharge Orders: Discharge Order (Routine); Ordered 03/08/24 Ordered By: Shawn Lawrence Referrals: Wesly Santiago DO [Primary Care Provider] - Discharge Diet: As Directed Discharge Activity: Resume usual activity Patient Instructions: Urinary Tract Infection in Women (DC) Activity Restrictions/Additional Instructions: Patient on 2.5L of continuous oxygen. -Please monitor mentation closely Discharge Attestations Time Spent in Discharge Care*: greater than 30 min Quality Metrics Clinical Quality Measures [ No reported AMI, CVA or VTE this stay] Coding Level of Care Code 19058 Total time (in minutes) for Discharge: 45 Diagnoses Type 2 diabetes mellitus E11.9 UTI (urinary tract infection) N39.0 Progressive supranuclear palsy G23.1 Hypoxia R09.02 Debility R53.81 Weakness R53.1 Dry cough R05.8
[2024-03-08 11:33] LABS: Glucose Point of Care 116 mg/dL (70-110)
[2024-03-08 11:38] VITALS: BP 159/84; PULSE 59; RESP 16; TEMP 36.6; O2SAT 94
--- NOTE | 2024-03-08 11:43 | PC.SOCIAL ---
IMM Update pg 2 of IMM updated and reviewed w/ patients son. Copy provided and copy dated, initialed and placed in chart.
[2024-03-08 11:48] LABS: SARS Covid-2 Antigen negative (Negative)
[2024-03-08 14:33] VITALS: BP 159/84; PULSE 59; TEMP 36.6; O2SAT 94
== END 2024-03-08 14:00 | disposition skilled nursing facility (03) | DRG 177 ==
LOC: ER 21:05 → ER IP 22:48 → MEDSURG 03-06 06:54
PROVIDERS: Admitting Provider Internal Medicine; Emergency Provider Emergency Medicine; PCP Internal Medicine; Visit Provider Family Medicine
DX: J69.0 Pneumonitis due to inhalation of food and vomit (principal); G93.41 Metabolic encephalopathy; G23.1 Progressive supranuclear ophthalmoplegia [Steele-Richardson-Olszewski]; N39.0 Urinary tract infection, site not specified; R09.02 Hypoxemia; G20.A1 Parkinson's disease without dyskinesia, without mention of fluctuations; F02.80 Dementia in other diseases classified elsewhere, unspecified severity, without behavioral disturbance, psychotic disturbance, mood disturbance, and anxiety; I16.0 Hypertensive urgency; E11.22 Type 2 diabetes mellitus with diabetic chronic kidney disease; K21.9 Gastro-esophageal reflux disease without esophagitis; I12.9 Hypertensive chronic kidney disease with stage 1 through stage 4 chronic kidney disease, or unspecified chronic kidney disease; Z66 Do not resuscitate; N18.9 Chronic kidney disease, unspecified; J44.9 Chronic obstructive pulmonary disease, unspecified; Z99.3 Dependence on wheelchair; Z79.82 Long term (current) use of aspirin; Z79.4 Long term (current) use of insulin; Z87.440 Personal history of urinary (tract) infections
CPT/HCPCS: 36415; 36416; 70450; 70496; 70498; 71045; 80048; 80053; 81001; 82962; 83735; 84100; 84443; 85025; 86140; 87077; 87086; 87186; 87426; 87637; 96372; 96374; 96375; 99285; G0378; J0360; J0696; J1650; J1815